=== PATIENT | male | born 1955 | race Caucasian/White ===

== ENCOUNTER 2023-07-11 16:59 | Inpatient (IN) ==
[2023-07-11] MEDS: LR 1,000 ML IV 1,000 ML IV SCH (20:48)
[2023-07-11] MEDS: BETAPACE AF PO SCH (20:50)
[2023-07-11] MEDS: PERCOCET TAB 5/325 MG PO PRN (20:50)
[2023-07-11] MEDS: CRESTOR TAB 10 MG PO SCH (20:51)
[2023-07-11 22:18] VITALS: BMI 24.3
--- NOTE | 2023-07-11 23:54 | DR.H&P ---
H&P History & Physical for Day of: H&P Date: 07/11/23 Chief Complaint Chief Complaint: Severe and acute in rest pain left leg. Allergies Allergies Allergy/AdvReac Type Severity Reaction Status Date / Time No Known Allergies Allergy Verified 07/11/23 18:37 History of Present Illness History of Present Illness: This is a 67 year old male with known peripheral vascular disease with CT angiogram showing a patent left superficial femoral artery stent with possible popliteal stenosis and only run off to the left leg being the peroneal . Patient was to be scheduled for arterial intervention in the next couple of weeks. He had a EGD today and had held his aspirin, Pletal and Plavix.Q hen he got home today he had acute increase in rest pain of the left leg with a cold left leg. Patient's past history significant for coronary artery disease status post CABG in the past and had recent nuclear stress test described as negative but with patient known lower ejection fraction. He has had stents placed in the left leg and has had bilateral carotid stents as well. Patient used to be a smoker and is diabetic Past Medical History Past Medical History: Anemia (has required iron infusions ), Cirrhosis (has had recent liver biopsy ), Coronary Artery Disease (s/p CABG in the past , recent nuclear streee test ), Diabetes, Dyslipidemia, GERD and Hypertension Additional Medical History: carotid artery stenosis s/p stenting of both , back pain Past Surgical History Surgical History: CABG/Valve Surgery (CABGx 3 ) and Carotid Endarterectomy (b/l carotid artery stenting ) Additional Surgical History: b/l inguinal hernia repair,b/ cataract surgery, Hx stenting left SFA Family History Family Medical History: [place] and Sudden Cardiac Social History Does patient currently use any type of tobacco product: No Have you used tobacco products in the last 12 months: No Type of Tobacco Use: None Does any household member use tobacco: No Alcohol Use: None Medications Home Medications: Home Medications Medication Instructions Recorded Confirmed Type amlodipine 5 mg-benazepril 10 mg 1 cap PO DAILY 07/11/23 07/11/23 History capsule empagliflozin 25 mg tablet 25 mg PO QAM 07/11/23 07/11/23 History (Jardiance) fluconazole 100 mg tablet 100 mg PO QDAY 07/11/23 07/11/23 History folic acid 1 mg tablet 1 mg PO QDAY 07/11/23 07/11/23 History metoprolol succinate 50 mg 50 mg PO QDAY 07/11/23 07/11/23 History tablet,extended release 24 hr omeprazole 40 mg capsule,delayed 40 mg PO DAILY 07/11/23 07/11/23 History release oxymetazoline 0.05 % nasal spray 2 spray intranasal TID PRN Allergy 07/11/23 07/11/23 History Symptoms rosuvastatin 20 mg tablet 20 mg PO QDAY 07/11/23 07/11/23 History solifenacin 10 mg tablet (Vesicare) 10 mg PO QDAY 07/11/23 07/11/23 History sotalol 80 mg tablet 80 mg PO BID 07/11/23 07/11/23 History tamsulosin 0.4 mg capsule 0.4 mg PO QDAY 07/11/23 07/11/23 History Labs Labs: Laboratory POC Glucose (mg/dL) 183 mg/dL (65-99) H 07/11/23 21:38 Review of Systems Constitutional: See HPI Eyes: No Symptoms Reported ENT: No Symptoms Reported Respiratory: No Symptoms Reported Cardiovascular: No Symptoms Reported Gastrointestinal: See HPI Genitourinary: No Symptoms Reported Musculoskeletal: Other (pain left leg at rest , absent Evie's sign , no significant swelling left leg ) Skin: No Symptoms Reported Neurological: No Symptoms Reported Physical Exam Vital Signs: Vital Signs Temperature 97.6 F Temperature 97.9 F Pulse Rate [Left Brachial] 51 Pulse Rate [Left Brachial] 52 Respiratory Rate 20 Respiratory Rate 20 Respiratory Rate 20 Respiratory Rate 19 Blood Pressure [Left Arm] 143/63 Blood Pressure [Left Arm] 179/75 O2 Sat by Pulse Oximetry 97 O2 Sat by Pulse Oximetry 97 Oriented: Normal, Person and Place Eyes: Normal and Other (not icteric ) Ear: Normal Nose: Normal Throat: Normal Respiratory: Clear Throughout Cardiovascular: Normal and Other (palpable femoral pulses b/l, absent PT and DP b/l, cool left foot) : Normal Auscultation: Bowel Sounds: Normal Palpation: Normal and Liver Enlarged (no ascities) Tenderness: Normal Skin: Other (left foot cool) Musculoskeletal: Normal Mood Description: Calm Affect: Normal Speech Pattern: Clear and Appropriate Assessment/Plan (1) Atherosclerosis of [place] arteries of extremities with rest pain, left leg: Status: Acute Plan: Admit, plan on table arteriogram of the left leg with possible arterial intervention tomorrow (2) Essential (primary) hypertension: Status: Acute Plan: home medications (3) Chronic ischemic heart disease, unspecified: Status: Acute Plan: home medications, review recent nuclear stress test (4) History of stroke: Status: Acute Plan: no acute cHANGES (5) Carotid stenosis, bilateral: Status: Acute Plan: no acute changes (6) Gastro-esophageal reflux disease without esophagitis: Status: Acute Plan: home medications (7) Hyperlipidemia: Status: Acute Plan: home medications Review H&P Reviewed: Yes Patient was examined?: Yes
[2023-07-12 06:39] LABS: BASOPHILS % (AUTO) 0.6 % (0.2-1.0); EOSINOPHILS # (AUTO) 0.1 x10^3/uL (0.0-0.2); EOSINOPHILS % (AUTO) 1.9 % (0.9-2.9); HEMATOCRIT 40.3 % (42.0-54.0); HEMOGLOBIN 13.5 g/dL (13.5-18.0); LYMPHOCYTES # (AUTO) 0.8 X10^3/uL (1.3-2.9); MEAN CORPUSCULAR HEMOGLOBIN 30.5 pg (27.0-34.0); MEAN CORPUSCULAR HGB CONC 33.5 g/dL (33.0-35.0); MEAN CORPUSCULAR VOLUME 91.2 fL (80.0-100.0); MEAN PLATELET VOLUME 8.7 fL (7.4-11.0); MONOCYTES # (AUTO) 0.3 x10^3/uL (0.3-0.8); NEUTROPHILS # (AUTO) 2.2 x10^3/uL (2.2-4.8); NEUTROPHILS % (AUTO) 64.5 % (42.0-75.0); PLATELET COUNT 56 X10^3/uL (150.0-450.0); RED BLOOD COUNT 4.42 X10^6/uL (4.7-6.0); RED CELL DISTRIBUTION WIDTH 15.1 % (11.6-16.5); WHITE BLOOD COUNT 3.4 X10^3/uL (3.6-10.0)
[2023-07-12 06:43] LABS: ALANINE AMINOTRANSFERASE 26 Units/L (12-78); ALBUMIN 3.2 g/dL (3.4-5.0); ALKALINE PHOSPHATASE 73 Units/L (46-116); ASPARTATE AMINO TRANSFERASE 16 Units/L (15-37); BLOOD UREA NITROGEN 17 mg/dL (7-18); CALCIUM 9.3 mg/dL (8.5-10.1); CARBON DIOXIDE 27.1 mmol/L (21-32); CHLORIDE 105 mmol/L (98-107); COR CA(FOR HYPOALB) 9.9 mg/dL (8.5-10.1); COR NA(FOR HYPERGLY) 143 mmol/L (136-145); CREATININE 0.83 mg/dL (0.70-1.30); GLUCOSE 170 mg/dL (65-99); POTASSIUM 3.9 mmol/L (3.5-5.1); SODIUM 141 mmol/L (136-145); TOTAL PROTEIN 7.1 g/dL (6.4-8.2); eGFR NON BLACK RACES > 60 (>60)
[2023-07-12] MEDS: NORVASC TAB 5 MG PO SCH (08:32)
[2023-07-12] MEDS: TOPROL XL PO SCH (09:49)
[2023-07-12] MEDS: FLOMAX PO SCH (10:34)
[2023-07-12] MEDS: PROTONIX TAB 40 MG PO SCH (10:35)
[2023-07-12] MEDS: FOLIC ACID TAB 1 MG PO SCH (10:35)
[2023-07-12] MEDS: NEURONTIN CAP 100 MG PO SCH (10:35)
[2023-07-12] MEDS: NS 1,000 ML IV 1,000 ML ONE ×2 (11:10→12:16)
[2023-07-12] MEDS: KETAMINE 50 MG/5 ML-NACL SYRNG ONE (11:28)
[2023-07-12] MEDS: FENTANYL VIAL INJ 100 mcg ONE (11:28)
[2023-07-12] MEDS: ANCEF VIAL 1 GRAM ONE (11:28)
[2023-07-12] MEDS: VERSED ONE (11:28)
[2023-07-12] MEDS: ZOFRAN INJ 4 MG VIAL ONE (11:28)
[2023-07-12] MEDS: DIPRIVAN VIAL 20 ML ONE (11:28)
[2023-07-12] MEDS: NS 100 ML IV 100 ML ONE (11:28)
[2023-07-12] MEDS ORDERED: XYLOCAINE 2 % (PLAIN) ONE (11:28)
[2023-07-12] MEDS: PEPCID 20 MG VIAL ONE (11:28)
[2023-07-12] MEDS: MARCAINE 0.5% ONE (11:47)
[2023-07-12] MEDS: VISIPAQUE 50 ML ONE (11:47)
[2023-07-12] MEDS: HEPARIN SODIUM IN D5W 75,000 UNITS/1,500 ML BAG ONE (11:47)
[2023-07-12] MEDS: VISIPAQUE 100 ML ONE (11:47)
[2023-07-12] MEDS: HEPARIN SODIUM INJ 5000 UNITS ONE (11:53)
[2023-07-12] MEDS: EPHEDRINE SULFATE INJ ONE (12:01)
[2023-07-12] MEDS: ACTIVASE CATHFLO ONE (12:09)
[2023-07-12] MEDS: NS 500 ML IV 500 ML IV ONE (12:16)
[2023-07-12] MEDS: ACTIVASE CATHFLO 12 MG in NS 250 ML IV 228 ML IV SCH (12:25)
--- NOTE | 2023-07-12 12:56 | OR.IMMED ---
IMMEDIATE POST-OP NOTE Immediate Post-Op Note Date of surgery/procedure: 07/12/23 Pre-Op Diagnosis: Acute ischemia left leg Post-Op Diagnosis: same , see findings Procedure: aortogram, arteriogram left leg, placement of EKOS catheter across all of the occluded stents of the left superficial femoral artery Description of Procedure: see dictation Surgeon/Air Chief Marshal: Gena Findings: This patient was known to have significant chronic arterial disease of the left leg and was scheduled for surgery in the next couple of weeks. However he underwent flexible EGD yesterday and they stopped all of his aspirin, anti-platlet drugs and anticoagulation and after EGD he had acute increase in pain of the left leg. Previous CT angiogram preiously done did not show any evidence of significant iliac artery disease however at the time of our aortogram he had a near total occlusion of the left common iliac artery with severe disease of the left external iliac artery and all of the stents of the entire left superficial femoral artery . There was reconstitution of the left popliteal artery with 3 vessel runoff. Most likely the poor inflow led to clotting when he stopped all of his anti-platelet and anti-coagulationdrugs prior to endoscopy . WIll treat with TPA thrombolysis overnight and then plan repeat trip to the operating room . Progress Notes: To ICU
[2023-07-12 13:36] LABS: BASOPHILS % (AUTO) 0.6 % (0.2-1.0); EOSINOPHILS % (AUTO) 1.4 % (0.9-2.9); HEMATOCRIT 40.1 % (42.0-54.0); HEMOGLOBIN 13.4 g/dL (13.5-18.0); LYMPHOCYTES # (AUTO) 0.6 X10^3/uL (1.3-2.9); MEAN CORPUSCULAR HEMOGLOBIN 30.6 pg (27.0-34.0); MEAN CORPUSCULAR HGB CONC 33.5 g/dL (33.0-35.0); MEAN CORPUSCULAR VOLUME 91.3 fL (80.0-100.0); MEAN PLATELET VOLUME 8.3 fL (7.4-11.0); MONOCYTES # (AUTO) 0.2 x10^3/uL (0.3-0.8); NEUTROPHILS # (AUTO) 2.3 x10^3/uL (2.2-4.8); PLATELET COUNT 52 X10^3/uL (150.0-450.0); RED BLOOD COUNT 4.39 X10^6/uL (4.7-6.0); RED CELL DISTRIBUTION WIDTH 14.7 % (11.6-16.5); WHITE BLOOD COUNT 3.2 X10^3/uL (3.6-10.0)
[2023-07-12 19:43] LABS: BASOPHILS % (AUTO) 0.6 % (0.2-1.0); EOSINOPHILS # (AUTO) 0.1 x10^3/uL (0.0-0.2); EOSINOPHILS % (AUTO) 1.2 % (0.9-2.9); HEMATOCRIT 41.4 % (42.0-54.0); HEMOGLOBIN 13.8 g/dL (13.5-18.0); LYMPHOCYTES # (AUTO) 0.6 X10^3/uL (1.3-2.9); LYMPHOCYTES % (AUTO) 14.9 % (21.0-51.0); MEAN CORPUSCULAR HEMOGLOBIN 30.4 pg (27.0-34.0); MEAN CORPUSCULAR HGB CONC 33.5 g/dL (33.0-35.0); MEAN CORPUSCULAR VOLUME 90.8 fL (80.0-100.0); MEAN PLATELET VOLUME 8.4 fL (7.4-11.0); MONOCYTES # (AUTO) 0.3 x10^3/uL (0.3-0.8); MONOCYTES % (AUTO) 8.4 % (0.0-13.0); NEUTROPHILS # (AUTO) 3.1 x10^3/uL (2.2-4.8); NEUTROPHILS % (AUTO) 74.9 % (42.0-75.0); PLATELET COUNT 59 X10^3/uL (150.0-450.0); RED BLOOD COUNT 4.56 X10^6/uL (4.7-6.0); RED CELL DISTRIBUTION WIDTH 14.7 % (11.6-16.5); WHITE BLOOD COUNT 4.1 X10^3/uL (3.6-10.0)
[2023-07-12] MEDS: LOVENOX INJ 80 MG SYR SC SCH (20:58)
[2023-07-12] MEDS: NovoLIN R (or HumuLIN R) SC PRN (20:59)
[2023-07-12] MEDS: FLEXERIL TAB 10 MG PO PRN (23:09)
[2023-07-13 01:30] LABS: BASOPHILS # (AUTO) 0.1 X10^3/uL (0.0-0.1); BASOPHILS % (AUTO) 1.6 % (0.2-1.0); EOSINOPHILS # (AUTO) 0.1 x10^3/uL (0.0-0.2); EOSINOPHILS % (AUTO) 1.9 % (0.9-2.9); HEMATOCRIT 39.3 % (42.0-54.0); HEMOGLOBIN 13.4 g/dL (13.5-18.0); LYMPHOCYTES # (AUTO) 0.7 X10^3/uL (1.3-2.9); LYMPHOCYTES % (AUTO) 13.6 % (21.0-51.0); MEAN CORPUSCULAR HEMOGLOBIN 30.7 pg (27.0-34.0); MEAN CORPUSCULAR VOLUME 90.2 fL (80.0-100.0); MEAN PLATELET VOLUME 8.3 fL (7.4-11.0); MONOCYTES # (AUTO) 0.4 x10^3/uL (0.3-0.8); MONOCYTES % (AUTO) 7.4 % (0.0-13.0); NEUTROPHILS # (AUTO) 3.7 x10^3/uL (2.2-4.8); NEUTROPHILS % (AUTO) 75.5 % (42.0-75.0); PLATELET COUNT 65 X10^3/uL (150.0-450.0); RED BLOOD COUNT 4.36 X10^6/uL (4.7-6.0); RED CELL DISTRIBUTION WIDTH 14.7 % (11.6-16.5); WHITE BLOOD COUNT 4.9 X10^3/uL (3.6-10.0)
--- NOTE | 2023-07-13 06:13 | RAD ---
EXAM:Portable chestHISTORY:Preop ischemic left lower extremityCOMPARISON:NoneFINDINGS:Patient is status post median sternotomy and CABG. Heart size is normal. Sosa are normal. Aorta is calcified. Lung obrien are clear. No definite pleural effusions identified. Bony thorax is unremarkable.IMPRESSION:Clear status post CABG chestTHIS IS AN ELECTRONICALLY VERIFIED FINAL REPORT07/13/2023 6:09 AM - Electronically signed by Quinton Keane MD
[2023-07-13 07:20] LABS: BASOPHILS % (AUTO) 0.6 % (0.2-1.0); EOSINOPHILS # (AUTO) 0.1 x10^3/uL (0.0-0.2); EOSINOPHILS % (AUTO) 1.3 % (0.9-2.9); HEMATOCRIT 39.6 % (42.0-54.0); HEMOGLOBIN 13.3 g/dL (13.5-18.0); LYMPHOCYTES # (AUTO) 0.7 X10^3/uL (1.3-2.9); LYMPHOCYTES % (AUTO) 11.9 % (21.0-51.0); MEAN CORPUSCULAR HEMOGLOBIN 30.3 pg (27.0-34.0); MEAN CORPUSCULAR HGB CONC 33.5 g/dL (33.0-35.0); MEAN CORPUSCULAR VOLUME 90.4 fL (80.0-100.0); MONOCYTES # (AUTO) 0.5 x10^3/uL (0.3-0.8); MONOCYTES % (AUTO) 9.2 % (0.0-13.0); NEUTROPHILS # (AUTO) 4.5 x10^3/uL (2.2-4.8); PLATELET COUNT 69 X10^3/uL (150.0-450.0); RED BLOOD COUNT 4.38 X10^6/uL (4.7-6.0); RED CELL DISTRIBUTION WIDTH 14.5 % (11.6-16.5); WHITE BLOOD COUNT 5.8 X10^3/uL (3.6-10.0)
[2023-07-13] MEDS: NS 500 ML IV 500 ML IV SCH ×2 (07:45)
[2023-07-13] MEDS: ATIVAN TAB 1 MG PO PRN (11:00)
--- NOTE | 2023-07-13 12:11 | NOTE.SOAP ---
Soap Note Note for Day of Date of Exam: 07/13/23 Subjective Data Subjective Data: POD # 1 after aortogram, arteriogram left leg with findings of near complete occlusion of the left common iliac artery , severe stenosis of the left external iliac artery and thrombosis of all the stents of the left superficial femoral artery. Has undergone EKOS directed thrombolysis of all left SFA stents last night . Doing well Left leg pain resolved Objective Data Temperature: 98 F Pulse Rate: 66 Respiratory Rate: 19 Blood Pressure: 146/64 O2 Sat by Pulse Oximetry: 95 Objective Data: Left foot warm, Mild bleeding from right groin catheter placement . Hgb=13.3, cr=0.83, febouppppa=995, PTT=39.8 Assessment Assessment: Thrombosis left SFA stents , treated with TPA EKOS directed thrombolysis. Plan Plan: To OR TOMORROW for f/u arteriogram left leg and stenting left common and left external iliac arteries.
--- NOTE | 2023-07-13 13:00 | DR.OPNOTE ---
OP NOTE Pre-Op Diagnosis: critical ischemia left leg, acute onset and worsening Post-Op Diagnosis: same , see findings Procedure Date Date Of Procedure: 07/12/23 Procedure: PROCEDURE: DIAGNOSTIC AORTOGRAM, DIAGNOSTIC ARTERIOGRAM LEFT LEG, PLACEMENT LEFT SUPERFICIAL FEMORAL ARTERY ekos DORECTED THROMBOLYTIC CATHETER. NARRATIVE : The patient was taken to the operative suite and placed in the supine position. The right groin and entire left leg were prepped and draped in sterile fashion. The patient was given intravenous sedation supervised by myself. Time out for the procedure obtained. Ultrasound used to identify the right femoral artery and the skin overlying it infiltrated with 0.5% Marcaine. Ultrasound then used to guide puncture of the right femoral artery and a 0.012 inch guide wire was placed. Incision made over the guide wire at the skin edge with a # 11 knife blade and a micro sheath placed over the guide wire into the right femoral artery The small guidewire exchanged for a 0.035 inch Advantage glide wire and the micro sheath exchanged for a 5 Fr vascular sheath. Patient given 5000 units of intravenous heparin. Omni catheter was placed over the guide wire into the aorta and diagnostic aortogram carried out with the power injector showing small aorta with near total occlusion of the takeoff of the left common iliac artery and severe stenosis of the entire left external iliac artery. Omni catheter was used to steer the guide wire down the left common iliac artery to the distal left external iliac artery . Omni catheter was exchanged for a Canby catheter and sequential arteriograms carried out of the left lower extremity showing all stents lining the entire left superficial femoral artery to be occluded with probable clot as the wire advanced easily. In addition the patient had CTA 2 week previously showing these stents to be patetn The 5 Fr sheath in the right groin then exchanged for a 7 Fr Catapult sheath which parked on the left external iliac artery . Canby catheter and 0.035 inch guide wire were used to traverse the arteries and clot of the left leg ultimately ending in the left peroneal rtery . This was selective catheterization. Canby catheter exchanged for the sheath for the EKOS catheter and the wire reoved and exchanged for the core wire of the EKOS system. Patient bolused with 3 mg TPA through the catheter and TPA infusion started at 1 mg/ hour with plan for 24 hour infusion. Coolant through the EKOS sheath stared at 30 cc/hour and the oscillation of the catheter startred . The catheter in the right groin secured to the skin with interrupted silk suture ligature and dressing applied . The patient taken to CCU in good condition. Plan overnight thrombolysis of the left leg and will bring back to OR on 07/14/2023 for repeat arteteriogram, possible angioplasty of the left SFA stents. Will also need stenting of the left common and external iliac arteries . Patient will also be therapuetic Lovenox dose. Type of Anesthesia: Local (0.5% Marcaine ) Anesthesia Comment: plus MAC Findings: near total occlusion takeoff of the left common iliac artery, severe stenosis left external iliac artey, thrombosis of all stents lining the left superficial femoral artetry , with reconstitution of the left popliteal artery and 3 vessel runoff. Type of Fluids Used:: Lactated Ringers Total Amount of Fluid Infused:: 500cc Urine output: 225cc EBL: 50 cc Complications:: none Needle/Sponge Count:: correct Disposition/Condition: Pt. tolerated procedure without difficulty. Patient taken to CCU in stable condition.
[2023-07-13 13:48] LABS: BASOPHILS % (AUTO) 0.7 % (0.2-1.0); EOSINOPHILS # (AUTO) 0.1 x10^3/uL (0.0-0.2); HEMATOCRIT 33.8 % (42.0-54.0); HEMOGLOBIN 11.4 g/dL (13.5-18.0); LYMPHOCYTES # (AUTO) 0.6 X10^3/uL (1.3-2.9); LYMPHOCYTES % (AUTO) 14.3 % (21.0-51.0); MEAN CORPUSCULAR HEMOGLOBIN 30.4 pg (27.0-34.0); MEAN CORPUSCULAR HGB CONC 33.7 g/dL (33.0-35.0); MEAN CORPUSCULAR VOLUME 90.2 fL (80.0-100.0); MONOCYTES # (AUTO) 0.4 x10^3/uL (0.3-0.8); MONOCYTES % (AUTO) 9.3 % (0.0-13.0); NEUTROPHILS # (AUTO) 3.1 x10^3/uL (2.2-4.8); NEUTROPHILS % (AUTO) 73.7 % (42.0-75.0); PLATELET COUNT 62 X10^3/uL (150.0-450.0); RED BLOOD COUNT 3.75 X10^6/uL (4.7-6.0); RED CELL DISTRIBUTION WIDTH 14.9 % (11.6-16.5); WHITE BLOOD COUNT 4.2 X10^3/uL (3.6-10.0)
[2023-07-13 19:39] LABS: BASOPHILS % (AUTO) 0.6 % (0.2-1.0); EOSINOPHILS % (AUTO) 0.9 % (0.9-2.9); HEMOGLOBIN 10.7 g/dL (13.5-18.0); LYMPHOCYTES # (AUTO) 0.8 X10^3/uL (1.3-2.9); LYMPHOCYTES % (AUTO) 14.2 % (21.0-51.0); MEAN CORPUSCULAR HEMOGLOBIN 30.8 pg (27.0-34.0); MEAN CORPUSCULAR HGB CONC 34.4 g/dL (33.0-35.0); MEAN CORPUSCULAR VOLUME 89.6 fL (80.0-100.0); MEAN PLATELET VOLUME 7.9 fL (7.4-11.0); MONOCYTES # (AUTO) 0.4 x10^3/uL (0.3-0.8); NEUTROPHILS # (AUTO) 4.1 x10^3/uL (2.2-4.8); NEUTROPHILS % (AUTO) 76.3 % (42.0-75.0); PLATELET COUNT 73 X10^3/uL (150.0-450.0); RED BLOOD COUNT 3.46 X10^6/uL (4.7-6.0); RED CELL DISTRIBUTION WIDTH 14.6 % (11.6-16.5); WHITE BLOOD COUNT 5.3 X10^3/uL (3.6-10.0)
[2023-07-13] MEDS: ACTIVASE CATHFLO 12 MG in NS 250 ML IV 228 ML INTRACATH ONE ×2 (19:40→19:41)
[2023-07-13] MEDS: ACTIVASE CATHFLO 12 MG in NS 250 ML IV 228 ML IV ONE (19:41)
[2023-07-14 01:33] LABS: BASOPHILS % (AUTO) 0.4 % (0.2-1.0); HEMOGLOBIN 9.7 g/dL (13.5-18.0); LYMPHOCYTES # (AUTO) 0.8 X10^3/uL (1.3-2.9); LYMPHOCYTES % (AUTO) 16.6 % (21.0-51.0); MEAN CORPUSCULAR HGB CONC 34.6 g/dL (33.0-35.0); MEAN CORPUSCULAR VOLUME 89.5 fL (80.0-100.0); MEAN PLATELET VOLUME 7.9 fL (7.4-11.0); MONOCYTES # (AUTO) 0.6 x10^3/uL (0.3-0.8); MONOCYTES % (AUTO) 12.3 % (0.0-13.0); NEUTROPHILS # (AUTO) 3.4 x10^3/uL (2.2-4.8); NEUTROPHILS % (AUTO) 69.7 % (42.0-75.0); PLATELET COUNT 59 X10^3/uL (150.0-450.0); RED BLOOD COUNT 3.13 X10^6/uL (4.7-6.0); RED CELL DISTRIBUTION WIDTH 14.2 % (11.6-16.5); WHITE BLOOD COUNT 4.8 X10^3/uL (3.6-10.0)
[2023-07-14 07:56] LABS: BASOPHILS % (AUTO) 0.4 % (0.2-1.0); EOSINOPHILS # (AUTO) 0.1 x10^3/uL (0.0-0.2); EOSINOPHILS % (AUTO) 1.4 % (0.9-2.9); HEMATOCRIT 28.3 % (42.0-54.0); HEMOGLOBIN 9.7 g/dL (13.5-18.0); LYMPHOCYTES # (AUTO) 0.7 X10^3/uL (1.3-2.9); LYMPHOCYTES % (AUTO) 16.7 % (21.0-51.0); MEAN CORPUSCULAR HGB CONC 34.2 g/dL (33.0-35.0); MEAN CORPUSCULAR VOLUME 90.6 fL (80.0-100.0); MONOCYTES # (AUTO) 0.4 x10^3/uL (0.3-0.8); MONOCYTES % (AUTO) 9.6 % (0.0-13.0); NEUTROPHILS # (AUTO) 3.1 x10^3/uL (2.2-4.8); NEUTROPHILS % (AUTO) 71.9 % (42.0-75.0); PLATELET COUNT 63 X10^3/uL (150.0-450.0); RED BLOOD COUNT 3.13 X10^6/uL (4.7-6.0); RED CELL DISTRIBUTION WIDTH 14.6 % (11.6-16.5); WHITE BLOOD COUNT 4.3 X10^3/uL (3.6-10.0)
[2023-07-14] MEDS: NS 1,000 ML IV 1,000 ML ONE (08:31)
[2023-07-14] MEDS: FENTANYL VIAL INJ 100 mcg ONE (09:21)
[2023-07-14] MEDS: DIPRIVAN VIAL 20 ML ONE ×2 (09:21→10:06)
[2023-07-14] MEDS: ANCEF VIAL 1 GRAM ONE (09:21)
[2023-07-14] MEDS: VERSED ONE (09:21)
[2023-07-14] MEDS: NS 100 ML IV 100 ML ONE (09:21)
[2023-07-14] MEDS: KETAMINE HCL ONE (09:21)
[2023-07-14] MEDS: HEPARIN SODIUM IN D5W 75,000 UNITS/1,500 ML BAG ONE (09:39)
[2023-07-14] MEDS: HEPARIN SODIUM INJ 5000 UNITS ONE (09:39)
[2023-07-14] MEDS: VISIPAQUE 50 ML ONE ×2 (09:39→11:15)
[2023-07-14] MEDS: MARCAINE 0.5% ONE (09:39)
[2023-07-14] MEDS: NEO-SYNEPHRINE INJ ONE (09:46)
--- NOTE | 2023-07-14 10:46 | OR.IMMED ---
IMMEDIATE POST-OP NOTE Immediate Post-Op Note Date of surgery/procedure: 07/14/23 Pre-Op Diagnosis: Severe common and external iliac artery stenosis on the left and thrombosis of entire left superficial femoral artery including stents ,treated with TPA overnight infusion Post-Op Diagnosis: same, thrombosis resolved, left external iliac artery stented, both common iliac arteries stented with kissing stents Procedure: Aortogram, arteriogram left leg, drug coated balloon angioplasty of all stents in the left superficial femoral artery , stenting left extyernal,iliac artery, stenting both common iliac arteries Description of Procedure: dictated Surgeon/Fitter And Turner: Gena Findings: thrombosis resolved of the left superficial femoral artery stents with mild residual clot ,severe stenosis left external iliac artery, near complete occlusion take off of the left common iliac artery ,severe stenosis right common iliac artery Estimated Blood Loss: 150 cc Complications: none Progress Notes: to CCU , check CBC, may discharge ho me later today
[2023-07-14] MEDS: ATIVAN INJ 2 MG VIAL IVP ONE (11:03)
[2023-07-14] MEDS: ATIVAN INJ 2 MG VIAL ONE (11:16)
[2023-07-14 12:16] LABS: BASOPHILS % (AUTO) 0.5 % (0.2-1.0); EOSINOPHILS # (AUTO) 0.1 x10^3/uL (0.0-0.2); EOSINOPHILS % (AUTO) 1.5 % (0.9-2.9); HEMATOCRIT 24.8 % (42.0-54.0); HEMOGLOBIN 8.5 g/dL (13.5-18.0); LYMPHOCYTES # (AUTO) 0.6 X10^3/uL (1.3-2.9); LYMPHOCYTES % (AUTO) 16.3 % (21.0-51.0); MEAN CORPUSCULAR HGB CONC 34.3 g/dL (33.0-35.0); MEAN CORPUSCULAR VOLUME 90.4 fL (80.0-100.0); MEAN PLATELET VOLUME 7.6 fL (7.4-11.0); MONOCYTES # (AUTO) 0.4 x10^3/uL (0.3-0.8); MONOCYTES % (AUTO) 10.9 % (0.0-13.0); NEUTROPHILS # (AUTO) 2.6 x10^3/uL (2.2-4.8); NEUTROPHILS % (AUTO) 70.8 % (42.0-75.0); PLATELET COUNT 50 X10^3/uL (150.0-450.0); RED BLOOD COUNT 2.75 X10^6/uL (4.7-6.0); WHITE BLOOD COUNT 3.7 X10^3/uL (3.6-10.0)
[2023-07-14 13:58] LABS: BASOPHILS % (AUTO) 0.4 % (0.2-1.0); EOSINOPHILS # (AUTO) 0.1 x10^3/uL (0.0-0.2); EOSINOPHILS % (AUTO) 1.3 % (0.9-2.9); HEMATOCRIT 28.4 % (42.0-54.0); HEMOGLOBIN 9.6 g/dL (13.5-18.0); LYMPHOCYTES # (AUTO) 0.7 X10^3/uL (1.3-2.9); MEAN CORPUSCULAR HEMOGLOBIN 30.5 pg (27.0-34.0); MEAN CORPUSCULAR HGB CONC 33.8 g/dL (33.0-35.0); MEAN CORPUSCULAR VOLUME 90.3 fL (80.0-100.0); MEAN PLATELET VOLUME 8.5 fL (7.4-11.0); MONOCYTES # (AUTO) 0.4 x10^3/uL (0.3-0.8); MONOCYTES % (AUTO) 9.7 % (0.0-13.0); NEUTROPHILS # (AUTO) 2.9 x10^3/uL (2.2-4.8); NEUTROPHILS % (AUTO) 71.6 % (42.0-75.0); PLATELET COUNT 57 X10^3/uL (150.0-450.0); RED BLOOD COUNT 3.15 X10^6/uL (4.7-6.0); RED CELL DISTRIBUTION WIDTH 14.3 % (11.6-16.5)
[2023-07-14 19:36] LABS: BASOPHILS % (AUTO) 0.5 % (0.2-1.0); EOSINOPHILS # (AUTO) 0.1 x10^3/uL (0.0-0.2); HEMATOCRIT 25.6 % (42.0-54.0); HEMOGLOBIN 8.8 g/dL (13.5-18.0); LYMPHOCYTES # (AUTO) 0.6 X10^3/uL (1.3-2.9); LYMPHOCYTES % (AUTO) 15.7 % (21.0-51.0); MEAN CORPUSCULAR HEMOGLOBIN 31.2 pg (27.0-34.0); MEAN CORPUSCULAR HGB CONC 34.3 g/dL (33.0-35.0); MEAN CORPUSCULAR VOLUME 90.9 fL (80.0-100.0); MONOCYTES # (AUTO) 0.4 x10^3/uL (0.3-0.8); MONOCYTES % (AUTO) 10.6 % (0.0-13.0); NEUTROPHILS # (AUTO) 2.7 x10^3/uL (2.2-4.8); NEUTROPHILS % (AUTO) 71.2 % (42.0-75.0); PLATELET COUNT 53 X10^3/uL (150.0-450.0); RED BLOOD COUNT 2.82 X10^6/uL (4.7-6.0); RED CELL DISTRIBUTION WIDTH 14.4 % (11.6-16.5); WHITE BLOOD COUNT 3.8 X10^3/uL (3.6-10.0)
[2023-07-15 01:34] LABS: BASOPHILS % (AUTO) 0.6 % (0.2-1.0); EOSINOPHILS # (AUTO) 0.1 x10^3/uL (0.0-0.2); EOSINOPHILS % (AUTO) 2.4 % (0.9-2.9); HEMATOCRIT 22.7 % (42.0-54.0); HEMOGLOBIN 7.8 g/dL (13.5-18.0); LYMPHOCYTES # (AUTO) 0.5 X10^3/uL (1.3-2.9); LYMPHOCYTES % (AUTO) 16.8 % (21.0-51.0); MEAN CORPUSCULAR HEMOGLOBIN 30.9 pg (27.0-34.0); MEAN CORPUSCULAR HGB CONC 34.6 g/dL (33.0-35.0); MEAN CORPUSCULAR VOLUME 89.6 fL (80.0-100.0); MEAN PLATELET VOLUME 7.8 fL (7.4-11.0); MONOCYTES # (AUTO) 0.4 x10^3/uL (0.3-0.8); MONOCYTES % (AUTO) 11.4 % (0.0-13.0); NEUTROPHILS # (AUTO) 2.1 x10^3/uL (2.2-4.8); NEUTROPHILS % (AUTO) 68.8 % (42.0-75.0); PLATELET COUNT 50 X10^3/uL (150.0-450.0); RED BLOOD COUNT 2.53 X10^6/uL (4.7-6.0); RED CELL DISTRIBUTION WIDTH 14.3 % (11.6-16.5); WHITE BLOOD COUNT 3.1 X10^3/uL (3.6-10.0)
[2023-07-15 04:03] VITALS: TEMP 98.2
[2023-07-15 06:05] VITALS: O2SAT 100
[2023-07-15 08:04] VITALS: PULSE 67
[2023-07-15 08:40] LABS: BASOPHILS % (AUTO) 0.5 % (0.2-1.0); EOSINOPHILS # (AUTO) 0.1 x10^3/uL (0.0-0.2); EOSINOPHILS % (AUTO) 2.3 % (0.9-2.9); HEMATOCRIT 24.6 % (42.0-54.0); HEMOGLOBIN 8.5 g/dL (13.5-18.0); LYMPHOCYTES # (AUTO) 0.5 X10^3/uL (1.3-2.9); LYMPHOCYTES % (AUTO) 18.1 % (21.0-51.0); MEAN CORPUSCULAR HEMOGLOBIN 31.2 pg (27.0-34.0); MEAN CORPUSCULAR HGB CONC 34.5 g/dL (33.0-35.0); MEAN CORPUSCULAR VOLUME 90.3 fL (80.0-100.0); MONOCYTES # (AUTO) 0.3 x10^3/uL (0.3-0.8); MONOCYTES % (AUTO) 10.5 % (0.0-13.0); NEUTROPHILS # (AUTO) 1.9 x10^3/uL (2.2-4.8); NEUTROPHILS % (AUTO) 68.6 % (42.0-75.0); PLATELET COUNT 50 X10^3/uL (150.0-450.0); RED BLOOD COUNT 2.73 X10^6/uL (4.7-6.0); RED CELL DISTRIBUTION WIDTH 14.4 % (11.6-16.5); WHITE BLOOD COUNT 2.8 X10^3/uL (3.6-10.0)
[2023-07-15 10:08] VITALS: BP 125/60; RESP 13
--- NOTE | 2023-07-15 11:25 | W.DIS.FURT ---
Summary of Discharge Discharge Summary of Date Date of Exam: 07/15/23 Admission Date Date of Admission: 07/11/23 Admission Diagnosis Hospital Course: This is a 67 year old male who has had left arterial LE intervention with multiple stents placed in the left superficial femorla artery who had been having some problems and was going to have repeat investigation in the operating room in a couple of weeks. However he had an upper endoscopy planned and all of his aspirin and other anti-coagulation medications were discontinued in anticipation of a biopsy of the time of the EGD and later that afternoon he complained of acute pain of the left leg. On presentation he had no pulses in the left leg. Repeat CT angiogram was not obtained. 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 He underwent Angiojet thrombectomy and placement of a thrombolytic catheter in the left leg which was infused for 24 hours and then observed another 24 and taken back to the operating Suite on July the where he underwent repeat arteriogram showing resolution of the clot in the left superficial femoral artery and stents with 3 vessel runoff. He had balloon angioplasty of the superficial femoral artery inside the stents and he also required stenting of both common arteries, the left side was nearly completely occcluded but because of the location required kissing stents to prevent collapse/compression of the right iliac artery . He has done well with a warm left foot with excellent doppler signals in the left ankle. He will be discharged home on his usual medications including his blood thinner and antiplatelet medications. He will follow with me in 1 week. On discharge his creatinine is 0.83. He lost some blood throught the right groin sheath will on TPA and his hemoglobin has risen to 8.5 grams . Suggest OTC iron supplement . Vital Signs: Vital Signs (72 hours) 07/13/23 12:01 07/12/23 13:00 07/12/23 11:40 Temperature 98 F Pulse Rate 66 57 L Pulse Rate [Left Brachial] Respiratory Rate 19 18 Blood Pressure 146/64 Blood Pressure [Left Arm] O2 Sat by Pulse Oximetry 95 95 Oxygen Delivery Method Oxygen Flow Rate FIO2% 07/12/23 12:45 07/12/23 16:04 07/12/23 12:45 Temperature 97.6 F Pulse Rate Pulse Rate [Left Brachial] 55 L Respiratory Rate 18 12 Blood Pressure Blood Pressure [Left Arm] 178/79 O2 Sat by Pulse Oximetry 96 Oxygen Delivery Method Room Air Room Air Oxygen Flow Rate FIO2% 07/12/23 13:00 07/12/23 13:15 07/12/23 13:30 Temperature 97.6 F 97.6 F 97.7 F Pulse Rate Pulse Rate [Left Brachial] 54 L 51 L 51 L Respiratory Rate 24 15 15 Blood Pressure Blood Pressure [Left Arm] 162/71 149/60 144/66 O2 Sat by Pulse Oximetry 96 94 L 95 Oxygen Delivery Method Room Air Room Air Room Air Oxygen Flow Rate FIO2% 07/12/23 13:45 07/12/23 14:45 07/12/23 15:45 Temperature 97.7 F 97.7 F 98.6 F Pulse Rate Pulse Rate [Left Brachial] 50 L 49 L 66 Respiratory Rate 12 14 15 Blood Pressure Blood Pressure [Left Arm] 146/68 155/62 166/77 O2 Sat by Pulse Oximetry 94 L 95 96 Oxygen Delivery Method Room Air Room Air Room Air Oxygen Flow Rate FIO2% 07/12/23 16:45 07/12/23 17:45 07/12/23 17:04 Temperature 98.0 F 97.8 F Pulse Rate Pulse Rate [Left Brachial] 65 68 Respiratory Rate 12 21 18 Blood Pressure Blood Pressure [Left Arm] 171/71 160/70 O2 Sat by Pulse Oximetry 92 L 93 L Oxygen Delivery Method Room Air Room Air Oxygen Flow Rate FIO2% 07/12/23 19:00 07/12/23 19:32 07/12/23 20:00 Temperature 98.1 F Pulse Rate 58 L Pulse Rate [Left Brachial] 60 59 L Respiratory Rate 24 24 Blood Pressure Blood Pressure [Left Arm] 171/80 159/68 O2 Sat by Pulse Oximetry 93 L 99 95 Oxygen Delivery Method Room Air Room Air Oxygen Flow Rate FIO2% 07/12/23 19:00 07/12/23 21:50 07/12/23 21:05 Temperature Pulse Rate Pulse Rate [Left Brachial] 58 L Respiratory Rate 18 16 Blood Pressure Blood Pressure [Left Arm] 176/77 O2 Sat by Pulse Oximetry 96 Oxygen Delivery Method Room Air Room Air Oxygen Flow Rate FIO2% 07/12/23 22:00 07/12/23 22:50 07/12/23 23:56 Temperature 98.7 F Pulse Rate Pulse Rate [Left Brachial] 61 60 Respiratory Rate 15 18 15 Blood Pressure Blood Pressure [Left Arm] 177/77 177/78 O2 Sat by Pulse Oximetry 96 96 Oxygen Delivery Method Room Air Room Air Oxygen Flow Rate FIO2% 07/13/23 01:02 07/13/23 01:54 07/13/23 06:10 Temperature Pulse Rate Pulse Rate [Left Brachial] 60 Respiratory Rate 16 18 18 Blood Pressure Blood Pressure [Left Arm] 165/72 O2 Sat by Pulse Oximetry 96 Oxygen Delivery Method Room Air Oxygen Flow Rate FIO2% 07/13/23 02:00 07/13/23 03:00 07/13/23 02:54 Temperature Pulse Rate Pulse Rate [Left Brachial] 62 62 Respiratory Rate 15 16 16 Blood Pressure Blood Pressure [Left Arm] 180/85 168/84 O2 Sat by Pulse Oximetry 96 97 Oxygen Delivery Method Room Air Room Air Oxygen Flow Rate FIO2% 07/13/23 04:00 07/13/23 05:00 07/13/23 06:07 Temperature 97.7 F Pulse Rate Pulse Rate [Left Brachial] 62 60 68 Respiratory Rate 14 19 19 Blood Pressure Blood Pressure [Left Arm] 149/67 155/69 160/72 O2 Sat by Pulse Oximetry 97 97 98 Oxygen Delivery Method Room Air Room Air Room Air Oxygen Flow Rate FIO2% 07/13/23 07:00 07/12/23 23:30 07/12/23 23:45 Temperature Pulse Rate 61 62 Pulse Rate [Left Brachial] Respiratory Rate 21 18 Blood Pressure Blood Pressure [Left Arm] O2 Sat by Pulse Oximetry 96 97 Oxygen Delivery Method Room Air Oxygen Flow Rate FIO2% 07/13/23 00:00 07/13/23 00:00 07/13/23 00:02 Temperature Pulse Rate 62 61 Pulse Rate [Left Brachial] Respiratory Rate 16 16 Blood Pressure 203/82 Blood Pressure [Left Arm] O2 Sat by Pulse Oximetry 96 97 Oxygen Delivery Method Oxygen Flow Rate FIO2% 07/13/23 00:02 07/13/23 00:15 07/13/23 00:30 Temperature Pulse Rate 60 Pulse Rate [Left Brachial] Respiratory Rate 20 Blood Pressure 185/78 167/72 Blood Pressure [Left Arm] O2 Sat by Pulse Oximetry 96 Oxygen Delivery Method Oxygen Flow Rate FIO2% 07/13/23 00:30 07/13/23 00:45 07/13/23 01:00 Temperature Pulse Rate 59 L 60 Pulse Rate [Left Brachial] Respiratory Rate 15 21 Blood Pressure 165/72 Blood Pressure [Left Arm] O2 Sat by Pulse Oximetry 97 93 L Oxygen Delivery Method Oxygen Flow Rate FIO2% 07/13/23 01:00 07/13/23 01:00 07/13/23 01:15 Temperature Pulse Rate 60 60 Pulse Rate [Left Brachial] Respiratory Rate 19 14 Blood Pressure 165/72 Blood Pressure [Left Arm] O2 Sat by Pulse Oximetry 96 98 Oxygen Delivery Method Oxygen Flow Rate FIO2% 07/13/23 01:30 07/13/23 01:30 07/13/23 01:32 Temperature Pulse Rate 63 Pulse Rate [Left Brachial] Respiratory Rate 20 Blood Pressure 203/84 185/80 Blood Pressure [Left Arm] O2 Sat by Pulse Oximetry 95 Oxygen Delivery Method Oxygen Flow Rate FIO2% 07/13/23 01:32 07/13/23 01:45 07/13/23 02:00 Temperature Pulse Rate 63 61 63 Pulse Rate [Left Brachial] Respiratory Rate 20 13 15 Blood Pressure Blood Pressure [Left Arm] O2 Sat by Pulse Oximetry 97 97 96 Oxygen Delivery Method Oxygen Flow Rate FIO2% 07/13/23 02:01 07/13/23 02:01 07/13/23 02:15 Temperature Pulse Rate 62 60 Pulse Rate [Left Brachial] Respiratory Rate 29 H 14 Blood Pressure 186/78 Blood Pressure [Left Arm] O2 Sat by Pulse Oximetry 96 97 Oxygen Delivery Method Oxygen Flow Rate FIO2% 07/13/23 02:30 07/13/23 02:45 07/13/23 03:00 Temperature Pulse Rate 60 65 Pulse Rate [Left Brachial] Respiratory Rate 18 19 Blood Pressure 177/115 Blood Pressure [Left Arm] O2 Sat by Pulse Oximetry 97 97 Oxygen Delivery Method Oxygen Flow Rate FIO2% 07/13/23 03:00 07/13/23 03:04 07/13/23 03:04 Temperature Pulse Rate 64 62 Pulse Rate [Left Brachial] Respiratory Rate 34 H 14 Blood Pressure 168/84 Blood Pressure [Left Arm] O2 Sat by Pulse Oximetry 96 Oxygen Delivery Method Oxygen Flow Rate FIO2% 07/13/23 03:15 07/13/23 03:30 07/13/23 03:45 Temperature Pulse Rate 61 61 61 Pulse Rate [Left Brachial] Respiratory Rate 17 20 15 Blood Pressure Blood Pressure [Left Arm] O2 Sat by Pulse Oximetry 97 95 96 Oxygen Delivery Method Oxygen Flow Rate FIO2% 07/13/23 04:00 07/13/23 04:00 07/13/23 04:15 Temperature Pulse Rate 60 62 Pulse Rate [Left Brachial] Respiratory Rate 21 19 Blood Pressure 149/67 Blood Pressure [Left Arm] O2 Sat by Pulse Oximetry 94 L 93 L Oxygen Delivery Method Oxygen Flow Rate FIO2% 07/13/23 04:30 07/13/23 04:45 07/13/23 05:00 Temperature Pulse Rate 63 61 60 Pulse Rate [Left Brachial] Respiratory Rate 21 18 19 Blood Pressure Blood Pressure [Left Arm] O2 Sat by Pulse Oximetry 96 96 94 L Oxygen Delivery Method Oxygen Flow Rate FIO2% 07/13/23 05:00 07/13/23 05:15 07/13/23 05:30 Temperature Pulse Rate 61 64 Pulse Rate [Left Brachial] Respiratory Rate 21 26 H Blood Pressure 155/69 Blood Pressure [Left Arm] O2 Sat by Pulse Oximetry 94 L 97 Oxygen Delivery Method Oxygen Flow Rate FIO2% 07/13/23 05:45 07/13/23 06:00 07/13/23 06:00 Temperature Pulse Rate 62 64 Pulse Rate [Left Brachial] Respiratory Rate 21 18 Blood Pressure 160/72 Blood Pressure [Left Arm] O2 Sat by Pulse Oximetry 95 96 Oxygen Delivery Method Oxygen Flow Rate FIO2% 07/13/23 06:15 07/13/23 06:30 07/13/23 06:45 Temperature Pulse Rate 65 64 64 Pulse Rate [Left Brachial] Respiratory Rate 19 18 19 Blood Pressure Blood Pressure [Left Arm] O2 Sat by Pulse Oximetry 96 96 96 Oxygen Delivery Method Oxygen Flow Rate FIO2% 07/13/23 07:00 07/13/23 07:00 07/13/23 07:15 Temperature Pulse Rate 62 69 Pulse Rate [Left Brachial] Respiratory Rate 20 28 H Blood Pressure 136/64 Blood Pressure [Left Arm] O2 Sat by Pulse Oximetry 96 96 Oxygen Delivery Method Oxygen Flow Rate FIO2% 07/13/23 07:41 07/13/23 07:10 07/13/23 07:30 Temperature 98 F Pulse Rate 69 Pulse Rate [Left Brachial] Respiratory Rate 16 38 H Blood Pressure Blood Pressure [Left Arm] O2 Sat by Pulse Oximetry 97 Oxygen Delivery Method Oxygen Flow Rate FIO2% 07/13/23 07:45 07/13/23 08:00 07/13/23 08:00 Temperature Pulse Rate 72 63 Pulse Rate [Left Brachial] Respiratory Rate 29 H 19 Blood Pressure 146/64 Blood Pressure [Left Arm] O2 Sat by Pulse Oximetry 95 95 Oxygen Delivery Method Oxygen Flow Rate FIO2% 07/13/23 08:15 07/13/23 08:30 07/13/23 08:45 Temperature Pulse Rate 61 66 66 Pulse Rate [Left Brachial] Respiratory Rate 20 33 H 19 Blood Pressure Blood Pressure [Left Arm] O2 Sat by Pulse Oximetry 94 L 95 95 Oxygen Delivery Method Oxygen Flow Rate FIO2% 07/13/23 09:00 07/13/23 09:15 07/13/23 09:30 Temperature Pulse Rate 63 66 64 Pulse Rate [Left Brachial] Respiratory Rate 19 25 H 26 H Blood Pressure Blood Pressure [Left Arm] O2 Sat by Pulse Oximetry 95 97 98 Oxygen Delivery Method Oxygen Flow Rate FIO2% 07/13/23 09:50 07/13/23 09:45 07/13/23 10:00 Temperature Pulse Rate 62 63 Pulse Rate [Left Brachial] Respiratory Rate 18 20 14 Blood Pressure Blood Pressure [Left Arm] O2 Sat by Pulse Oximetry 99 99 Oxygen Delivery Method Oxygen Flow Rate FIO2% 07/13/23 10:15 07/13/23 10:20 07/13/23 10:20 Temperature Pulse Rate 63 63 Pulse Rate [Left Brachial] Respiratory Rate 17 17 Blood Pressure 161/70 Blood Pressure [Left Arm] O2 Sat by Pulse Oximetry 99 99 Oxygen Delivery Method Oxygen Flow Rate FIO2% 07/13/23 10:50 07/13/23 09:00 07/13/23 10:30 Temperature Pulse Rate 63 Pulse Rate [Left Brachial] Respiratory Rate 16 19 Blood Pressure Blood Pressure [Left Arm] O2 Sat by Pulse Oximetry 99 Oxygen Delivery Method Room Air Oxygen Flow Rate FIO2% 07/13/23 10:45 07/13/23 11:00 07/13/23 11:00 Temperature Pulse Rate 64 64 Pulse Rate [Left Brachial] Respiratory Rate 20 17 Blood Pressure 158/71 Blood Pressure [Left Arm] O2 Sat by Pulse Oximetry 98 98 Oxygen Delivery Method Oxygen Flow Rate FIO2% 07/13/23 11:15 07/13/23 11:30 07/13/23 11:45 Temperature Pulse Rate 65 62 62 Pulse Rate [Left Brachial] Respiratory Rate 24 20 21 Blood Pressure Blood Pressure [Left Arm] O2 Sat by Pulse Oximetry 99 97 98 Oxygen Delivery Method Oxygen Flow Rate FIO2% 07/13/23 12:00 07/13/23 12:00 07/13/23 12:15 Temperature Pulse Rate 65 62 Pulse Rate [Left Brachial] Respiratory Rate 20 21 Blood Pressure 138/62 Blood Pressure [Left Arm] O2 Sat by Pulse Oximetry 99 99 Oxygen Delivery Method Oxygen Flow Rate FIO2% 07/13/23 12:30 07/13/23 12:45 07/13/23 13:00 Temperature Pulse Rate 63 65 62 Pulse Rate [Left Brachial] Respiratory Rate 17 26 H 21 Blood Pressure Blood Pressure [Left Arm] O2 Sat by Pulse Oximetry 99 99 100 Oxygen Delivery Method Oxygen Flow Rate FIO2% 07/13/23 13:00 07/13/23 13:15 07/13/23 13:30 Temperature Pulse Rate 63 63 Pulse Rate [Left Brachial] Respiratory Rate 21 21 Blood Pressure 111/54 Blood Pressure [Left Arm] O2 Sat by Pulse Oximetry 100 99 Oxygen Delivery Method Oxygen Flow Rate FIO2% 07/13/23 13:45 07/13/23 14:00 07/13/23 14:01 Temperature Pulse Rate 63 64 64 Pulse Rate [Left Brachial] Respiratory Rate 22 23 17 Blood Pressure Blood Pressure [Left Arm] O2 Sat by Pulse Oximetry 99 98 98 Oxygen Delivery Method Oxygen Flow Rate FIO2% 07/13/23 14:01 07/13/23 14:15 07/13/23 14:30 Temperature Pulse Rate 64 64 Pulse Rate [Left Brachial] Respiratory Rate 24 18 Blood Pressure 141/61 Blood Pressure [Left Arm] O2 Sat by Pulse Oximetry 97 99 Oxygen Delivery Method Oxygen Flow Rate FIO2% 07/13/23 14:45 07/13/23 15:00 07/13/23 15:00 Temperature Pulse Rate 65 65 Pulse Rate [Left Brachial] Respiratory Rate 17 21 Blood Pressure 125/58 Blood Pressure [Left Arm] O2 Sat by Pulse Oximetry 99 99 Oxygen Delivery Method Oxygen Flow Rate FIO2% 07/13/23 15:42 07/13/23 15:15 07/13/23 15:30 Temperature Pulse Rate 65 64 Pulse Rate [Left Brachial] Respiratory Rate 18 22 18 Blood Pressure Blood Pressure [Left Arm] O2 Sat by Pulse Oximetry 100 100 Oxygen Delivery Method Oxygen Flow Rate FIO2% 07/13/23 15:45 07/13/23 16:00 07/13/23 16:00 Temperature Pulse Rate 65 64 Pulse Rate [Left Brachial] Respiratory Rate 21 23 Blood Pressure 140/64 Blood Pressure [Left Arm] O2 Sat by Pulse Oximetry 99 100 Oxygen Delivery Method Oxygen Flow Rate FIO2% 07/13/23 16:15 07/13/23 16:30 07/13/23 16:36 Temperature 97.8 F Pulse Rate 66 69 Pulse Rate [Left Brachial] Respiratory Rate 44 H 33 H Blood Pressure Blood Pressure [Left Arm] O2 Sat by Pulse Oximetry 99 100 Oxygen Delivery Method Oxygen Flow Rate FIO2% 07/13/23 16:45 07/13/23 17:00 07/13/23 17:00 Temperature Pulse Rate 67 68 Pulse Rate [Left Brachial] Respiratory Rate 24 25 H Blood Pressure 122/58 Blood Pressure [Left Arm] O2 Sat by Pulse Oximetry 100 100 Oxygen Delivery Method Oxygen Flow Rate FIO2% 07/13/23 17:15 07/13/23 16:42 07/13/23 17:30 Temperature Pulse Rate 67 67 Pulse Rate [Left Brachial] Respiratory Rate 24 16 20 Blood Pressure Blood Pressure [Left Arm] O2 Sat by Pulse Oximetry 100 99 Oxygen Delivery Method Oxygen Flow Rate FIO2% 07/13/23 17:45 07/13/23 18:00 07/13/23 18:00 Temperature Pulse Rate 74 71 Pulse Rate [Left Brachial] Respiratory Rate 28 H 21 Blood Pressure 131/60 Blood Pressure [Left Arm] O2 Sat by Pulse Oximetry 100 100 Oxygen Delivery Method Oxygen Flow Rate FIO2% 07/13/23 19:01 07/13/23 19:01 07/13/23 19:00 Temperature Pulse Rate 67 Pulse Rate [Left Brachial] Respiratory Rate 17 Blood Pressure 98/57 Blood Pressure [Left Arm] O2 Sat by Pulse Oximetry 98 Oxygen Delivery Method Nasal Cannula Oxygen Flow Rate 2 FIO2% 07/13/23 20:03 07/13/23 20:03 07/14/23 03:23 Temperature 98.7 F Pulse Rate 69 Pulse Rate [Left Brachial] Respiratory Rate 29 H 24 Blood Pressure 171/72 Blood Pressure [Left Arm] O2 Sat by Pulse Oximetry 99 Oxygen Delivery Method Oxygen Flow Rate FIO2% 07/13/23 21:00 07/13/23 21:01 07/13/23 21:01 Temperature Pulse Rate 67 67 Pulse Rate [Left Brachial] Respiratory Rate 21 23 Blood Pressure 152/67 Blood Pressure [Left Arm] O2 Sat by Pulse Oximetry 100 100 Oxygen Delivery Method Oxygen Flow Rate FIO2% 07/13/23 21:48 07/13/23 21:00 07/13/23 22:01 Temperature Pulse Rate Pulse Rate [Left Brachial] Respiratory Rate 20 Blood Pressure 185/77 Blood Pressure [Left Arm] O2 Sat by Pulse Oximetry Oxygen Delivery Method Nasal Cannula Oxygen Flow Rate 2 FIO2% 28 07/13/23 22:01 07/13/23 22:48 07/13/23 23:01 Temperature Pulse Rate 78 68 Pulse Rate [Left Brachial] Respiratory Rate 36 H 23 24 Blood Pressure Blood Pressure [Left Arm] O2 Sat by Pulse Oximetry 99 98 Oxygen Delivery Method Oxygen Flow Rate FIO2% 07/13/23 23:01 07/13/23 21:00 07/14/23 00:00 Temperature 98.5 F Pulse Rate 67 Pulse Rate [Left Brachial] Respiratory Rate Blood Pressure 118/56 130/60 Blood Pressure [Left Arm] O2 Sat by Pulse Oximetry 100 Oxygen Delivery Method Oxygen Flow Rate FIO2% 07/14/23 00:00 07/14/23 01:01 07/14/23 01:01 Temperature Pulse Rate 64 65 Pulse Rate [Left Brachial] Respiratory Rate 26 H 12 Blood Pressure 164/70 Blood Pressure [Left Arm] O2 Sat by Pulse Oximetry 99 98 Oxygen Delivery Method Oxygen Flow Rate FIO2% 07/14/23 02:01 07/14/23 02:01 07/14/23 03:00 Temperature Pulse Rate 67 67 Pulse Rate [Left Brachial] Respiratory Rate 22 14 Blood Pressure 157/67 Blood Pressure [Left Arm] O2 Sat by Pulse Oximetry 98 99 Oxygen Delivery Method Oxygen Flow Rate FIO2% 07/14/23 03:01 07/14/23 04:00 07/14/23 04:00 Temperature 98.5 F Pulse Rate 71 Pulse Rate [Left Brachial] Respiratory Rate 20 Blood Pressure 125/57 119/58 Blood Pressure [Left Arm] O2 Sat by Pulse Oximetry 99 Oxygen Delivery Method Oxygen Flow Rate FIO2% 07/14/23 04:23 07/14/23 05:00 07/14/23 05:00 Temperature Pulse Rate 69 Pulse Rate [Left Brachial] Respiratory Rate 21 18 Blood Pressure 133/65 Blood Pressure [Left Arm] O2 Sat by Pulse Oximetry 99 Oxygen Delivery Method Oxygen Flow Rate FIO2% 07/14/23 06:00 07/14/23 06:01 07/14/23 06:01 Temperature Pulse Rate 74 68 Pulse Rate [Left Brachial] Respiratory Rate 19 16 Blood Pressure 149/67 Blood Pressure [Left Arm] O2 Sat by Pulse Oximetry 99 100 Oxygen Delivery Method Oxygen Flow Rate FIO2% 07/14/23 07:36 07/14/23 07:01 07/14/23 08:00 Temperature 97.7 F Pulse Rate 65 75 Pulse Rate [Left Brachial] Respiratory Rate 16 21 25 H Blood Pressure Blood Pressure [Left Arm] O2 Sat by Pulse Oximetry 99 100 Oxygen Delivery Method Oxygen Flow Rate FIO2% 07/14/23 08:02 07/14/23 08:02 07/14/23 08:31 Temperature 97.9 F Pulse Rate 71 72 Pulse Rate [Left Brachial] Respiratory Rate 15 16 Blood Pressure 147/63 127/59 Blood Pressure [Left Arm] O2 Sat by Pulse Oximetry 100 94 L Oxygen Delivery Method Room Air Oxygen Flow Rate FIO2% 07/14/23 08:40 07/14/23 14:36 07/14/23 08:15 Temperature Pulse Rate 72 Pulse Rate [Left Brachial] Respiratory Rate 16 22 Blood Pressure Blood Pressure [Left Arm] O2 Sat by Pulse Oximetry 98 Oxygen Delivery Method Room Air Oxygen Flow Rate FIO2% 07/14/23 10:55 07/14/23 10:57 07/14/23 10:57 Temperature Pulse Rate 80 82 Pulse Rate [Left Brachial] Respiratory Rate Blood Pressure 146/66 Blood Pressure [Left Arm] O2 Sat by Pulse Oximetry 98 100 Oxygen Delivery Method Oxygen Flow Rate FIO2% 07/14/23 11:00 07/14/23 11:00 07/14/23 11:15 Temperature 97.7 F 97.7 F Pulse Rate 77 73 Pulse Rate [Left Brachial] Respiratory Rate 23 19 Blood Pressure 153/68 Blood Pressure [Left Arm] O2 Sat by Pulse Oximetry 100 100 Oxygen Delivery Method Oxygen Flow Rate FIO2% 07/14/23 11:15 07/14/23 11:30 07/14/23 11:30 Temperature 97.7 F Pulse Rate 74 Pulse Rate [Left Brachial] Respiratory Rate 17 Blood Pressure 147/66 128/57 Blood Pressure [Left Arm] O2 Sat by Pulse Oximetry 100 Oxygen Delivery Method Oxygen Flow Rate FIO2% 07/14/23 11:45 07/14/23 11:45 07/14/23 12:00 Temperature 97.8 F Pulse Rate 74 Pulse Rate [Left Brachial] Respiratory Rate 19 Blood Pressure 131/58 130/60 Blood Pressure [Left Arm] O2 Sat by Pulse Oximetry 100 Oxygen Delivery Method Oxygen Flow Rate FIO2% 07/14/23 12:00 07/14/23 12:15 07/14/23 12:15 Temperature 98.0 F Pulse Rate 74 73 Pulse Rate [Left Brachial] Respiratory Rate 19 17 Blood Pressure 147/64 Blood Pressure [Left Arm] O2 Sat by Pulse Oximetry 100 99 Oxygen Delivery Method Oxygen Flow Rate FIO2% 07/14/23 12:30 07/14/23 12:30 07/14/23 12:45 Temperature Pulse Rate 71 71 Pulse Rate [Left Brachial] Respiratory Rate 13 17 Blood Pressure 151/65 Blood Pressure [Left Arm] O2 Sat by Pulse Oximetry 100 99 Oxygen Delivery Method Oxygen Flow Rate FIO2% 07/14/23 12:45 07/14/23 12:45 07/14/23 13:00 Temperature Pulse Rate Pulse Rate [Left Brachial] Respiratory Rate Blood Pressure 127/56 127/56 163/72 Blood Pressure [Left Arm] O2 Sat by Pulse Oximetry Oxygen Delivery Method Oxygen Flow Rate FIO2% 07/14/23 13:00 07/14/23 13:00 07/14/23 13:00 Temperature 98.0 F Pulse Rate 71 71 Pulse Rate [Left Brachial] Respiratory Rate 18 18 Blood Pressure 163/72 Blood Pressure [Left Arm] O2 Sat by Pulse Oximetry 100 100 Oxygen Delivery Method Oxygen Flow Rate FIO2% 07/14/23 13:15 07/14/23 13:15 07/14/23 13:30 Temperature Pulse Rate 71 68 Pulse Rate [Left Brachial] Respiratory Rate 18 17 Blood Pressure 154/66 Blood Pressure [Left Arm] O2 Sat by Pulse Oximetry 99 100 Oxygen Delivery Method Oxygen Flow Rate FIO2% 07/14/23 13:30 07/14/23 13:45 07/14/23 13:45 Temperature Pulse Rate 68 Pulse Rate [Left Brachial] Respiratory Rate 17 Blood Pressure 147/65 143/63 Blood Pressure [Left Arm] O2 Sat by Pulse Oximetry 100 Oxygen Delivery Method Oxygen Flow Rate FIO2% 07/14/23 14:00 07/14/23 14:00 07/14/23 14:05 Temperature 97.9 F Pulse Rate 81 71 Pulse Rate [Left Brachial] Respiratory Rate 30 H 19 Blood Pressure 193/128 Blood Pressure [Left Arm] O2 Sat by Pulse Oximetry 100 100 Oxygen Delivery Method Oxygen Flow Rate FIO2% 07/14/23 14:05 07/14/23 14:15 07/14/23 14:15 Temperature Pulse Rate 69 Pulse Rate [Left Brachial] Respiratory Rate 18 Blood Pressure 163/74 154/52 Blood Pressure [Left Arm] O2 Sat by Pulse Oximetry 100 Oxygen Delivery Method Oxygen Flow Rate FIO2% 07/14/23 14:30 07/14/23 14:30 07/14/23 14:45 Temperature Pulse Rate 69 73 Pulse Rate [Left Brachial] Respiratory Rate 17 15 Blood Pressure 157/69 Blood Pressure [Left Arm] O2 Sat by Pulse Oximetry 100 100 Oxygen Delivery Method Oxygen Flow Rate FIO2% 07/14/23 15:00 07/14/23 15:00 07/14/23 15:36 Temperature Pulse Rate 71 Pulse Rate [Left Brachial] Respiratory Rate 19 16 Blood Pressure 159/70 Blood Pressure [Left Arm] O2 Sat by Pulse Oximetry 100 Oxygen Delivery Method Oxygen Flow Rate FIO2% 07/14/23 15:15 07/14/23 15:30 07/14/23 15:45 Temperature Pulse Rate 69 72 76 Pulse Rate [Left Brachial] Respiratory Rate 19 20 24 Blood Pressure Blood Pressure [Left Arm] O2 Sat by Pulse Oximetry 100 100 100 Oxygen Delivery Method Oxygen Flow Rate FIO2% 07/14/23 16:00 07/14/23 16:00 07/14/23 16:08 Temperature Pulse Rate 73 Pulse Rate [Left Brachial] Respiratory Rate 19 Blood Pressure 173/75 164/70 Blood Pressure [Left Arm] O2 Sat by Pulse Oximetry 100 Oxygen Delivery Method Oxygen Flow Rate FIO2% 07/14/23 16:08 07/14/23 16:15 07/14/23 07:00 Temperature 98.0 F Pulse Rate 74 68 Pulse Rate [Left Brachial] Respiratory Rate 19 20 Blood Pressure Blood Pressure [Left Arm] O2 Sat by Pulse Oximetry 100 100 Oxygen Delivery Method Room Air Oxygen Flow Rate FIO2% 07/14/23 16:30 07/14/23 16:45 07/14/23 17:00 Temperature Pulse Rate 76 76 73 Pulse Rate [Left Brachial] Respiratory Rate 18 21 21 Blood Pressure Blood Pressure [Left Arm] O2 Sat by Pulse Oximetry 100 99 99 Oxygen Delivery Method Oxygen Flow Rate FIO2% 07/14/23 17:00 07/14/23 17:15 07/14/23 17:30 Temperature Pulse Rate 75 76 Pulse Rate [Left Brachial] Respiratory Rate 21 23 Blood Pressure 133/62 Blood Pressure [Left Arm] O2 Sat by Pulse Oximetry 100 100 Oxygen Delivery Method Oxygen Flow Rate FIO2% 07/14/23 17:45 07/14/23 18:00 07/14/23 18:00 Temperature Pulse Rate 78 80 Pulse Rate [Left Brachial] Respiratory Rate 18 14 Blood Pressure 129/59 Blood Pressure [Left Arm] O2 Sat by Pulse Oximetry 100 100 Oxygen Delivery Method Oxygen Flow Rate FIO2% 07/14/23 18:15 07/14/23 18:30 07/14/23 18:45 Temperature Pulse Rate 74 76 76 Pulse Rate [Left Brachial] Respiratory Rate 22 20 20 Blood Pressure Blood Pressure [Left Arm] O2 Sat by Pulse Oximetry 99 100 99 Oxygen Delivery Method Oxygen Flow Rate FIO2% 07/14/23 19:00 07/14/23 19:00 07/14/23 19:00 Temperature Pulse Rate 72 Pulse Rate [Left Brachial] Respiratory Rate 21 Blood Pressure 144/64 Blood Pressure [Left Arm] O2 Sat by Pulse Oximetry 100 Oxygen Delivery Method Room Air Oxygen Flow Rate FIO2% 07/14/23 20:00 07/14/23 20:00 07/14/23 20:59 Temperature 97.9 F Pulse Rate 78 Pulse Rate [Left Brachial] Respiratory Rate 22 18 Blood Pressure 123/57 Blood Pressure [Left Arm] O2 Sat by Pulse Oximetry 99 Oxygen Delivery Method Oxygen Flow Rate FIO2% 07/14/23 21:00 07/14/23 21:00 07/14/23 20:10 Temperature Pulse Rate 79 Pulse Rate [Left Brachial] Respiratory Rate 6 L Blood Pressure 145/64 Blood Pressure [Left Arm] O2 Sat by Pulse Oximetry 99 Oxygen Delivery Method Nasal Cannula Oxygen Flow Rate 2 FIO2% 28 07/14/23 22:00 07/14/23 22:00 07/14/23 21:59 Temperature Pulse Rate 82 Pulse Rate [Left Brachial] Respiratory Rate 31 H 22 Blood Pressure 131/64 Blood Pressure [Left Arm] O2 Sat by Pulse Oximetry 100 Oxygen Delivery Method Oxygen Flow Rate FIO2% 07/14/23 23:00 07/14/23 23:00 07/15/23 00:00 Temperature 98.5 F Pulse Rate 72 Pulse Rate [Left Brachial] Respiratory Rate 22 Blood Pressure 130/57 146/65 Blood Pressure [Left Arm] O2 Sat by Pulse Oximetry 99 Oxygen Delivery Method Oxygen Flow Rate FIO2% 07/15/23 00:00 07/15/23 01:00 07/15/23 01:00 Temperature Pulse Rate 74 69 Pulse Rate [Left Brachial] Respiratory Rate 20 22 Blood Pressure 145/65 Blood Pressure [Left Arm] O2 Sat by Pulse Oximetry 100 100 Oxygen Delivery Method Oxygen Flow Rate FIO2% 07/15/23 02:00 07/15/23 02:00 07/15/23 03:00 Temperature Pulse Rate 64 68 Pulse Rate [Left Brachial] Respiratory Rate 18 22 Blood Pressure 113/53 Blood Pressure [Left Arm] O2 Sat by Pulse Oximetry 97 100 Oxygen Delivery Method Oxygen Flow Rate FIO2% 07/15/23 03:00 07/15/23 04:00 07/15/23 04:00 Temperature 98.2 F Pulse Rate 68 Pulse Rate [Left Brachial] Respiratory Rate 26 H Blood Pressure 157/68 135/60 Blood Pressure [Left Arm] O2 Sat by Pulse Oximetry 100 Oxygen Delivery Method Oxygen Flow Rate FIO2% 07/15/23 04:22 07/15/23 05:00 07/15/23 05:00 Temperature Pulse Rate 72 Pulse Rate [Left Brachial] Respiratory Rate 22 23 Blood Pressure 126/61 Blood Pressure [Left Arm] O2 Sat by Pulse Oximetry 99 Oxygen Delivery Method Oxygen Flow Rate FIO2% 07/15/23 05:07/15/23 06:00 07/15/23 06:00 Temperature Pulse Rate 68 Pulse Rate [Left Brachial] Respiratory Rate 20 17 Blood Pressure 126/58 Blood Pressure [Left Arm] O2 Sat by Pulse Oximetry 100 Oxygen Delivery Method Oxygen Flow Rate FIO2% 07/15/23 07:00 07/15/23 07:00 07/15/23 07:00 Temperature Pulse Rate 63 Pulse Rate [Left Brachial] Respiratory Rate 19 Blood Pressure 114/53 Blood Pressure [Left Arm] O2 Sat by Pulse Oximetry 100 Oxygen Delivery Method Room Air Oxygen Flow Rate FIO2% 07/15/23 08:00 07/15/23 08:01 07/15/23 08:01 Temperature Pulse Rate 68 67 Pulse Rate [Left Brachial] Respiratory Rate 16 21 Blood Pressure 142/65 Blood Pressure [Left Arm] O2 Sat by Pulse Oximetry 100 100 Oxygen Delivery Method Oxygen Flow Rate FIO2% 07/15/23 09:10 07/15/23 09:00 07/15/23 09:00 Temperature Pulse Rate 67 Pulse Rate [Left Brachial] Respiratory Rate 21 Blood Pressure 139/63 Blood Pressure [Left Arm] O2 Sat by Pulse Oximetry 100 Oxygen Delivery Method Room Air Oxygen Flow Rate 2 FIO2% 21 07/15/23 10:00 07/15/23 10:00 Temperature Pulse Rate 67 Pulse Rate [Left Brachial] Respiratory Rate 13 Blood Pressure 125/60 Blood Pressure [Left Arm] O2 Sat by Pulse Oximetry Oxygen Delivery Method Oxygen Flow Rate FIO2% Labs: Laboratory Last Values WBC 2.8 X10^3/uL (3.6-10.0) L 07/15/23 08:05 RBC 2.73 X10^6/uL (4.7-6.0) L 07/15/23 08:05 Hgb 8.5 g/dL (13.5-18.0) L 07/15/23 08:05 Hct 24.6 % (42.0-54.0) L 07/15/23 08:05 MCV 90.3 fL (80.0-100.0) 07/15/23 08:05 MCH 31.2 pg (27.0-34.0) 07/15/23 08:05 MCHC 34.5 g/dL (33.0-35.0) 07/15/23 08:05 RDW 14.4 % (11.6-16.5) 07/15/23 08:05 Plt Count 50 X10^3/uL (150.0-450.0) L 07/15/23 08:05 MPV 8.0 fL (7.4-11.0) 07/15/23 08:05 Neut % (Auto) 68.6 % (42.0-75.0) 07/15/23 08:05 Lymph % (Auto) 18.1 % (21.0-51.0) L 07/15/23 08:05 Storey % (Auto) 10.5 % (0.0-13.0) 07/15/23 08:05 Eos % (Auto) 2.3 % (0.9-2.9) 07/15/23 08:05 Baso % (Auto) 0.5 % (0.2-1.0) 07/15/23 08:05 Neut # (Auto) 1.9 x10^3/uL (2.2-4.8) L 07/15/23 08:05 Lymph # (Auto) 0.5 X10^3/uL (1.3-2.9) L 07/15/23 08:05 Storey # (Auto) 0.3 x10^3/uL (0.3-0.8) 07/15/23 08:05 Eos # (Auto) 0.1 x10^3/uL (0.0-0.2) 07/15/23 08:05 Baso # (Auto) 0.0 X10^3/uL (0.0-0.1) 07/15/23 08:05 Absolute Nucleated RBC 0.4 /100WBC 07/15/23 08:05 APTT 37.1 SECONDS (22.9-36.5) H 07/15/23 08:05 PTT Comment - 07/15/23 08:05 Fibrinogen 440 mg/dL (239-489) 07/15/23 08:05 Sodium 141 mmol/L (136-145) 07/12/23 05:57 Corrected Sodium 143 mmol/L (136-145) 07/12/23 05:57 Potassium 3.9 mmol/L (3.5-5.1) 07/12/23 05:57 Chloride 105 mmol/L (98-107) 07/12/23 05:57 Carbon Dioxide 27.1 mmol/L (21-32) 07/12/23 05:57 BUN 17 mg/dL (7-18) 07/12/23 05:57 Creatinine 0.83 mg/dL (0.70-1.30) 07/12/23 05:57 Est GFR (MDRD) Af Amer > 60 (>60) 07/12/23 05:57 Est GFR (MDRD) Non-Af > 60 (>60) 07/12/23 05:57 Glucose 170 mg/dL (65-99) H 07/12/23 05:57 POC Glucose (mg/dL) 130 mg/dL (65-99) H 07/15/23 05:27 Calcium 9.3 mg/dL (8.5-10.1) 07/12/23 05:57 Corrected Calcium 9.9 mg/dL (8.5-10.1) 07/12/23 05:57 Total Bilirubin 0.30 mg/dL (0.2-1.0) 07/12/23 05:57 AST 16 Units/L (15-37) 07/12/23 05:57 ALT 26 Units/L (12-78) 07/12/23 05:57 Alkaline Phosphatase 73 Units/L (46-116) 07/12/23 05:57 Total Protein 7.1 g/dL (6.4-8.2) 07/12/23 05:57 Albumin 3.2 g/dL (3.4-5.0) L 07/12/23 05:57 Globulin 3.9 g/dL (2.5-4.5) 07/12/23 05:57 Albumin/Globulin Ratio 0.8 Ratio (1.1-2.1) L 07/12/23 05:57 Blood Type O POSITIVE 07/14/23 07:35 Blood Type O POSITIVE 07/14/23 07:35 Antibody Screen Negative 07/14/23 07:35 Crossmatch See Detail 07/14/23 07:35 Reason For Visit: CRITICAL ISCHEMIA LEFT LEG Discharge Date Discharge Date: 07/15/23 Discharge Diagnosis All Active Problems (Updated 07/11/23 @ 23:50 by Herrera Avery) Hyperlipidemia (Acute) Gastro-esophageal reflux disease without esophagitis (Acute) Carotid stenosis, bilateral (Acute) History of stroke (Acute) Chronic ischemic heart disease, unspecified (Acute) Essential (primary) hypertension (Acute) 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 Pt is to keep follow up appointment as instructed and take medications as ordered. Discharge Medications Discharge Medications: No Known Allergies Allergy (Verified 07/11/23 18:37) CONTINUE taking the following medications amlodipine 5 mg-benazepril 10 mg capsule 1 cap PO DAILY 07/11/23 [History] empagliflozin 25 mg tablet (Jardiance) 25 mg PO QAM 07/11/23 [History] fluconazole 100 mg tablet 100 mg PO QDAY 07/11/23 [History] folic acid 1 mg tablet 1 mg PO QDAY 07/11/23 [History] metoprolol succinate 50 mg tablet,extended release 24 hr 50 mg PO QDAY 07/11/23 [History] omeprazole 40 mg capsule,delayed release 40 mg PO DAILY 07/11/23 [History] oxymetazoline 0.05 % nasal spray 2 spray intranasal TID PRN Allergy Symptoms 07/11/23 [History] rosuvastatin 20 mg tablet 20 mg PO QDAY 07/11/23 [History] solifenacin 10 mg tablet (Vesicare) 10 mg PO QDAY 07/11/23 [History] sotalol 80 mg tablet 80 mg PO BID 07/11/23 [History] tamsulosin 0.4 mg capsule 0.4 mg PO QDAY 07/11/23 [History] Discharge Disposition Assessment: see hospitalpital course Discharge Plan Discharge Plan Hospital Course: This is a 67 year old male who has had left arterial LE intervention with multiple stents placed in the left superficial femorla artery who had been having some problems and was going to have repeat investigation in the operating room in a couple of weeks. However he had an upper endoscopy planned and all of his aspirin and other anti-coagulation medications were discontinued in anticipation of a biopsy of the time of the EGD and later that afternoon he complained of acute pain of the left leg. On presentation he had no pulses in the left leg. Repeat CT angiogram was not obtained. 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 He underwent Angiojet thrombectomy and placement of a thrombolytic catheter in the left leg which was infused for 24 hours and then observed another 24 and taken back to the operating Suite on July the where he underwent repeat arteriogram showing resolution of the clot in the left superficial femoral artery and stents with 3 vessel runoff. He had balloon angioplasty of the superficial femoral artery inside the stents and he also required stenting of both common arteries, the left side was nearly completely occcluded but because of the location required kissing stents to prevent collapse/compression of the right iliac artery . He has done well with a warm left foot with excellent doppler signals in the left ankle. He will be discharged home on his usual medications including his blood thinner and antiplatelet medications. He will follow with me in 1 week. On discharge his creatinine is 0.83. He lost some blood throught the right groin sheath will on TPA and his hemoglobin has risen to 8.5 grams . Suggest OTC iron supplement . Patient Disposition: 01 HOME, SELF-CARE Condition: Stable Health Concerns: Post Hospitalization: new medications and changes needed to prevent readmission or further decline. Pt educated and given instructions on all concerns. Care Plan Goals: Problem: Pain/Alteration in Comfort Goal: Improve/ Resolve Pain; Achieve Pain Tolerance Instructions: Take pain medications as prescribed. Contact your primary care provider if your pain is unrelieved or worsens. Follow up with primary care provider as directed. Plan of Treatment: Continue with present treatment and follow up plan. Pt is to keep follow up appointment as instructed and take medications as ordered. Assessment: see hospitalpital course Prescription drug monitoring program results: PDMP reviewed and no concerns identified Prescriptions: Continued sotalol 80 mg tablet 80 mg PO BID tamsulosin 0.4 mg capsule 0.4 mg PO QDAY metoprolol succinate 50 mg tablet extended release 24 hr 50 mg PO QDAY amlodipine-benazepril 5-10 mg Capsule 1 cap PO DAILY folic acid 1 mg Tablet 1 mg PO QDAY omeprazole 40 mg Capsule,Delayed Release(Dr/Ec) 40 mg PO DAILY fluconazole 100 mg Tablet 100 mg PO QDAY Rx Instructions: Daily x 10 days, filled on 07/11/2023 rosuvastatin 20 mg Tablet 20 mg PO QDAY Jardiance 25 mg Tablet 25 mg PO QAM solifenacin [Vesicare] 10 mg Tablet 10 mg PO QDAY oxymetazoline 0.05 % [place]dwell,Non-Aerosol 2 spray INTRANASAL TID PRN (Reason: Allergy Symptoms) Follow ups/Referrals Follow ups/Referrals: Herrera Avery [Primary Care Provider] - 07/25/23 2:00 pm Instructions Instructions: Endovascular Therapy for Peripheral Vascular Disease, Care After Stand Alone Forms: Excuse From Work or School, Post Hospital Follow Up Care
--- NOTE | 2023-07-16 23:44 | DR.OPNOTE ---
OP NOTE Pre-Op Diagnosis: critical ischemia left leg , Post-Op Diagnosis: same Procedure Date Date Of Procedure: 07/14/23 Procedure: PROCEDURE: Aortogram, arteriogram left leg, drug coated balloon angioplasty of the entire left superficial femoral artery stents, stenting left common iliac artery, stenting right common iliac artery, stenting right external iliac artery NARRATIVE : 2 days previously the patient had had undergone placement of thromb olytic catheter with 24-hour thrombolysis of completely occluded left superficial femoral artery stents. Studies at that time showed near complete occlusion of the left common iliac artery with severe left external artery disease and question of significant right common iliac artery stenosis. All of these were confirmed. The patient was taken to the operating suite and placed in the supine position. The entire left leg and right groin were prepped and draped in sterile fashion. Time out for the procedure obtained. Sedation was supervised by myself. The EKOS catheter had been removed from the sheath and through the remaining thrombolytic sheath we placed a 0.035 inch Advantage glidewire. Through the Catapult sheath positioned in the left external iliac artery we performed selective arteriogram showing near complete resolution of all of the thrombus inside the left superficial femoral artery. There was some residual disease. The wire on the left was taken all the way into the left posterior tibial artery.This was selective catherization. The entire left superficial femoral artery and the stents placed there were balloon dilated sequentially with [employer] Durand drug coated balloons using two 200 millimeter x 6 millimeters ballons and finally a 6 millimeter x 150 millimeter balloon. All were inflated for 3 minutes and then deflated . Post procedure arteriogram showed excellent result. At this point ultrasound used to identify the left common femoral artery and the skin overlying it infiltrated with 0.5 % Marcaine . Ultrasound used to guide puncture of the left common femoral artery and a 0.012 inch wire placed. Incision made over the guide wire with a #11 knife blade and a micro sheath placed over the guide wire into the left femoral artery . Small wire exchanged for a 0.035 inch Advantage glide wire and the micro sheath exchanged for a 7 Fr vascular sheath . The Catapult sheath in the right groin was pulled back in to the right external iliac arteey. Arteriogram performed of both iliac arteries and the aorta showing near complete occlusion in the left common iliac artery with severe disease of the left common iliac artery and severe stenosis of the right external iliac artery . On the right side we placed over the wire a 9 millimeter by 37 millimeter [employer] stent and on the left side place a [employer] 9 millimetre by 57 millimetre stent, Each stent were positioned over the area of severe disease of the common iliac arteries reestablishing a new aortic takeoff and balloon dilated these to full expansion with kissing balloons . On the left side we then placed an Faustina 7 mm x 80 millimeter drug coated stent positioned it with mild overlap of the 9 millimeter stent and balloon dilated it with a darinel 7 mm balloon. Post procerure arteriogram through the aorta and iliac arteries were now normal. The sheaths in each groin were removed and over the wires we place Angio seal devices used to close the puncture of both femoral arteries. Dressings applied and the patient returned to the ICU. Type of Anesthesia: Local (0.5% Marcaine ) Anesthesia Comment: plus MAC Findings: Near complete occlusion left common iliac artery, severe stenosis right common iliac artery, severe stenosis left external iliac artery, s/p thrombolysis of thrombotic occlusion left superficial femoral artery stents with residual disease Type of Fluids Used:: Lactated Ringers Total Amount of Fluid Infused:: 400cc Urine output: 100 cc EBL: 150 cc Hardware: Faustina 7mm x 80 mm drug coated stent, [employer] 9x 37 mm stent, [employer] 9x 57 mm stent Complications:: none Needle/Sponge Count:: correct Disposition/Condition: Pt. tolerated procedure without difficulty. Taken to [facility] in stable condition.
== END 2023-07-15 11:45 | disposition home or self-care (01) | DRG 279 ==
LOC: MED/SURG 17:36 → ICU 07-12 12:48
PROVIDERS: ADMIT Surgery; ATTEND Surgery
DX: I10 Essential (primary) hypertension; Z86.73 Personal history of transient ischemic attack (TIA), and cerebral infarction without residual deficits; I70.223 Atherosclerosis of native arteries of extremities with rest pain, bilateral legs; E78.5 Hyperlipidemia, unspecified; I65.23 Occlusion and stenosis of bilateral carotid arteries; K21.9 Gastro-esophageal reflux disease without esophagitis; I25.10 Atherosclerotic heart disease of native coronary artery without angina pectoris

== ENCOUNTER 2023-07-17 02:02 | Inpatient (IN) ==
--- NOTE | 2023-07-17 02:34 | DR.EXTPAIN ---
HPI Time seen Time Seen by Provider: 07/17/23 02:32 PCP Primary Care Physician: Complaint/Symptoms Chief Complaint:: pt stated he was released from icu on tuesday. he stated since tuesday he ahs not been able to walk without being in alot pain. COVID-19 Coronavirus risk:travel/contact w/high risk person: No Has patient experienced Coronavirus symptoms: No Source History Provided: Patient Mode of arrival Mode of Arrival: Wheelchair Timing Onset of Chief Complaint: 07/15/23 PMH PMH Past Medical History: Yes Past Medical History: Anemia, Cirrhosis, Coronary Artery Disease, Diabetes, Dyslipidemia, GERD and Hypertension Past Surgical History: Yes Surgical History: CABG/Valve Surgery and Carotid Endarterectomy Family History History of Family Medical Conditions: Yes Family Medical History: MA and Sudden Cardiac Social History Lives With: Spouse Travel Risk Coronavirus risk:travel/contact w/high risk person: No Has patient experienced Coronavirus symptoms: No Infectious screening In the last 2 months have you had wt loss of >10#?: NO Have you had fever, night sweats or hemotysis?: No Have you traveled outside the country in the last 6 months?: No Isolation: Standard PE Vital Signs Vitals: Vital Signs Temperature 97.7 F Pulse Rate 60 Pulse Rate 83 Respiratory Rate 20 Respiratory Rate 20 Respiratory Rate 20 Blood Pressure 112/57 Blood Pressure 88/51 O2 Sat by Pulse Oximetry 100 O2 Sat by Pulse Oximetry 95 Opioid Opioid Risk Tool Age (Ye box if 16-45): No History of Preadolescent Sexual Abuse: No Total: 0 Total Score Risk Category: Low Risk Copyright: Ramón JACOBS predicting aberrant behaviors Discharge Plan Discharge Plan Patient Disposition: HOME, SELF-CARE Condition: Stable Prescriptions: No Action sotalol 80 mg tablet 80 mg PO BID tamsulosin 0.4 mg capsule 0.4 mg PO QDAY metoprolol succinate 50 mg tablet extended release 24 hr 50 mg PO QDAY amlodipine-benazepril 5-10 mg Capsule 1 cap PO DAILY folic acid 1 mg Tablet 1 mg PO QDAY omeprazole 40 mg Capsule,Delayed Release(Dr/Ec) 40 mg PO DAILY fluconazole 100 mg Tablet 100 mg PO QDAY Rx Instructions: Daily x 10 days, filled on 07/11/2023 rosuvastatin 20 mg Tablet 20 mg PO QDAY Jardiance 25 mg Tablet 25 mg PO QAM solifenacin [Vesicare] 10 mg Tablet 10 mg PO QDAY fluconazole 100 mg tablet 100 mg PO QDAY cilostazol 100 mg tablet 100 mg PO BID clopidogrel 75 mg tablet 75 mg PO QDAY hydrocodone-acetaminophen 10-325 mg tablet 1 tab PO Q8H PRN (Reason: pain) Ozempic 0.25 mg or 0.5 mg (2 mg/3 mL) pen injector 0.5 mg SUBCUT QWEEK Health Concerns: Post Hospitalization: new medications and changes needed to prevent readmission or further decline. Pt educated and given instructions on all concerns. Plan of Treatment: Continue with present treatment and follow up plan. Pt is to keep follow up appointment as instructed and take medications as ordered. Orders to Discharge Patient Discharge Orders: Transfer (Routine); Ordered 07/17/23 Ordered By: LOLA CHURCH Follow ups/Referrals Follow ups/Referrals: Herrera Avery [Primary Care Provider] - 3 days Instructions Stand Alone Forms: Post Hospital Follow Up Care
[2023-07-17] MEDS: LOVENOX INJ 80 MG SYR SC ONE (02:45)
[2023-07-17] MEDS: LOVENOX INJ 40 MG SYR SC ONE ×2 (02:52→20:27)
[2023-07-17] MEDS: ZOFRAN INJ 4 MG VIAL IVP ONE (03:01)
[2023-07-17] MEDS: NS 1,000 ML IV 1,000 ML IV ONE (03:01)
[2023-07-17] MEDS: DILAUDID INJ IVP ONE (03:03)
[2023-07-17 03:38] LABS: HEMOGLOBIN 8.2 g/dL (13.5-18.0); WHITE BLOOD COUNT 3.6 X10^3/uL (3.6-10.0)
[2023-07-17 03:42] LABS: BASOPHILS % (AUTO) 0.6 % (0.2-1.0); EOSINOPHILS # (AUTO) 0.1 x10^3/uL (0.0-0.2); EOSINOPHILS % (AUTO) 2.1 % (0.9-2.9); HEMATOCRIT 23.7 % (42.0-54.0); LYMPHOCYTES # (AUTO) 0.4 X10^3/uL (1.3-2.9); LYMPHOCYTES % (AUTO) 12.4 % (21.0-51.0); MEAN CORPUSCULAR HEMOGLOBIN 31.2 pg (27.0-34.0); MEAN CORPUSCULAR HGB CONC 34.7 g/dL (33.0-35.0); MEAN CORPUSCULAR VOLUME 89.9 fL (80.0-100.0); MEAN PLATELET VOLUME 7.8 fL (7.4-11.0); MONOCYTES # (AUTO) 0.4 x10^3/uL (0.3-0.8); MONOCYTES % (AUTO) 10.4 % (0.0-13.0); NEUTROPHILS # (AUTO) 2.7 x10^3/uL (2.2-4.8); NEUTROPHILS % (AUTO) 74.5 % (42.0-75.0); PLATELET COUNT 82 X10^3/uL (150.0-450.0); RED BLOOD COUNT 2.64 X10^6/uL (4.7-6.0); RED CELL DISTRIBUTION WIDTH 14.4 % (11.6-16.5)
[2023-07-17 03:52] LABS: ALANINE AMINOTRANSFERASE 15 Units/L (12-78); ALBUMIN 2.7 g/dL (3.4-5.0); ALKALINE PHOSPHATASE 62 Units/L (46-116); ASPARTATE AMINO TRANSFERASE 12 Units/L (15-37); BLOOD UREA NITROGEN 16 mg/dL (7-18); CALCIUM 8.7 mg/dL (8.5-10.1); CHLORIDE 103 mmol/L (98-107); COR CA(FOR HYPOALB) 9.7 mg/dL (8.5-10.1); COR NA(FOR HYPERGLY) 143 mmol/L (136-145); CREATININE 1.05 mg/dL (0.70-1.30); GLUCOSE 242 mg/dL (65-99); POTASSIUM 3.6 mmol/L (3.5-5.1); SODIUM 140 mmol/L (136-145); TOTAL PROTEIN 6.6 g/dL (6.4-8.2); eGFR NON BLACK RACES > 60 (>60)
[2023-07-17 05:44] VITALS: BMI 25.1
[2023-07-17] MEDS: LR 1,000 ML IV 1,000 ML IV SCH (06:02)
[2023-07-17 06:35] LABS: BILIRUBIN,URINE NEGATIVE (NEGATIVE); BLOOD/HEMOGLOBIN,URINE 1+ (NEGATIVE); GLUCOSE, URINE 4+ (NEGATIVE); KETONES,URINE NEGATIVE (NEGATIVE); LEUKOCYTE ESTERASE ,URINE NEGATIVE (NEGATIVE); NITRITES,URINE NEGATIVE (NEGATIVE); PROTEIN,URINE NEGATIVE (NEGATIVE); UROBILINOGEN,URINE NORMAL (NORMAL)
[2023-07-17 06:36] LABS: APPEARANCE,URINE CLEAR (CLEAR); COLOR,URINE YELLOW (YELLOW)
[2023-07-17 06:43] LABS: RBC,URINE 0-2 /HPF (0-3); SQUAMOUS EPITHELIAL CELL,UR NEGATIVE /HPF (NEGATIVE)
[2023-07-17 06:44] LABS: BACTERIA,URINE TRACE /HPF (NEGATIVE)
[2023-07-17] MEDS ORDERED: PLETAL PO SCH (09:00)
[2023-07-17] MEDS: DILAUDID INJ IVP PRN (09:36)
[2023-07-17] MEDS: LOTENSIN TAB 10 MG PO SCH (10:21)
[2023-07-17] MEDS: PriLOSEC PO SCH (10:21)
[2023-07-17] MEDS: BETAPACE AF PO SCH (10:21)
[2023-07-17] MEDS: FOLIC ACID TAB 1 MG PO SCH (10:26)
[2023-07-17] MEDS: FLOMAX PO SCH (10:26)
[2023-07-17] MEDS: DIFLUCAN PO SCH (10:26)
[2023-07-17] MEDS: FARXIGA PO SCH (10:27)
[2023-07-17] MEDS: DETROL LA 2 MG CAP EXT REL PO SCH (10:27)
[2023-07-17] MEDS: LOVENOX INJ 80 MG SYR SC SCH (11:41)
--- NOTE | 2023-07-17 12:56 | DR.H&P ---
H&P History & Physical for Day of: H&P Date: 07/17/23 Chief Complaint Chief Complaint: painful right leg Allergies Allergies Allergy/AdvReac Type Severity Reaction Status Date / Time No Known Allergies Allergy Verified 07/11/23 18:37 History of Present Illness History of Present Illness: This patient is a 67 year old male who had been evaluated for bilateral significant peripheral arterial disease who was scheduled for intervention of the left leg first and then the right leg beginning in a couple of weeks. However he underwent upper endoscopy and all of his blood thinners and anti platlet drugs were stopped and immediately afterwards he had acute pain in the left leg and was admitted. On table arteriogram showed severe stenosis of the left and right common iliac arteries and severe disease of the left external iliac artery as well as complete thrombosis of all of the stents in the left superficial femoral artery with good runoff. He underwent overnight thrombolysis with TPA of the left leg stents and returned 48 hours later where he underwent stenting of the bilateral common iliac arteries and the left external iliac artery with angioplasty of the stents of the left leg with good flow to the left leg. He did well and discharged home on the 14 of July. He returned today complaining of increasing pain of his right leg. He is known to have significant stenosis of the right superficial femoral artery. He did not start his blood thinners immediately after arriving home. His left leg is doing well at this time. Past Medical History Past Medical History: Anemia, Cirrhosis, Coronary Artery Disease, Diabetes, Dyslipidemia, GERD and Hypertension Additional Medical History: carotid artery stenosis s/p stenting of both , back pain Past Surgical History Surgical History: CABG/Valve Surgery and Carotid Endarterectomy Additional Surgical History: b/l inguinal hernia repair,b/ cataract surgery, Hx stenting left SFA Family History Family Medical History: [place] and Sudden Cardiac Social History Does patient currently use any type of tobacco product: No Type of Tobacco Use: None Does any household member use tobacco: No Alcohol Use: None Drug Use: None Medications Home Medications: Home Medications Medication Instructions Recorded Confirmed Type amlodipine 5 mg-benazepril 10 mg 1 cap PO DAILY 07/11/23 07/17/23 History capsule empagliflozin 25 mg tablet 25 mg PO QAM 07/11/23 07/17/23 History (Jardiance) fluconazole 100 mg tablet 100 mg PO QDAY 07/11/23 07/17/23 History folic acid 1 mg tablet 1 mg PO QDAY 07/11/23 07/17/23 History metoprolol succinate 50 mg 50 mg PO QDAY 07/11/23 07/17/23 History tablet,extended release 24 hr omeprazole 40 mg capsule,delayed 40 mg PO DAILY 07/11/23 07/17/23 History release rosuvastatin 20 mg tablet 20 mg PO QDAY 07/11/23 07/17/23 History solifenacin 10 mg tablet (Vesicare) 10 mg PO QDAY 07/11/23 07/17/23 History sotalol 80 mg tablet 80 mg PO BID 07/11/23 07/17/23 History tamsulosin 0.4 mg capsule 0.4 mg PO QDAY 07/11/23 07/17/23 History cilostazol 100 mg tablet 100 mg PO BID 07/17/23 07/17/23 History clopidogrel 75 mg tablet 75 mg PO QDAY 07/17/23 07/17/23 History fluconazole 100 mg tablet 100 mg PO QDAY 07/17/23 07/17/23 History hydrocodone 10 mg-acetaminophen 1 tab PO Q8H PRN pain 07/17/23 07/17/23 History 325 mg tablet semaglutide 0.25 mg or 0.5 mg (2 0.5 mg subcut QWEEK 07/17/23 07/17/23 History mg/3 mL) subcutaneous pen injector (Ozempic) Labs 07/17/23 03:00 07/17/23 03:00 Labs: Laboratory WBC 3.6 X10^3/uL (3.6-10.0) 07/17/23 03:00 RBC 2.64 X10^6/uL (4.7-6.0) L 07/17/23 03:00 Hgb 8.2 g/dL (13.5-18.0) L 07/17/23 03:00 Hct 23.7 % (42.0-54.0) L 07/17/23 03:00 MCV 89.9 fL (80.0-100.0) 07/17/23 03:00 MCH 31.2 pg (27.0-34.0) 07/17/23 03:00 MCHC 34.7 g/dL (33.0-35.0) 07/17/23 03:00 RDW 14.4 % (11.6-16.5) 07/17/23 03:00 Plt Count 82 X10^3/uL (150.0-450.0) L 07/17/23 03:00 MPV 7.8 fL (7.4-11.0) 07/17/23 03:00 Neut % (Auto) 74.5 % (42.0-75.0) 07/17/23 03:00 Lymph % (Auto) 12.4 % (21.0-51.0) L 07/17/23 03:00 [place] % (Auto) 10.4 % (0.0-13.0) 07/17/23 03:00 Eos % (Auto) 2.1 % (0.9-2.9) 07/17/23 03:00 Baso % (Auto) 0.6 % (0.2-1.0) 07/17/23 03:00 Neut # (Auto) 2.7 x10^3/uL (2.2-4.8) 07/17/23 03:00 Lymph # (Auto) 0.4 X10^3/uL (1.3-2.9) L 07/17/23 03:00 [place] # (Auto) 0.4 x10^3/uL (0.3-0.8) 07/17/23 03:00 Eos # (Auto) 0.1 x10^3/uL (0.0-0.2) 07/17/23 03:00 Baso # (Auto) 0.0 X10^3/uL (0.0-0.1) 07/17/23 03:00 Absolute Nucleated RBC 0.1 /100WBC 07/17/23 03:00 Sodium 140 mmol/L (136-145) 07/17/23 03:00 Corrected Sodium 143 mmol/L (136-145) 07/17/23 03:00 Potassium 3.6 mmol/L (3.5-5.1) 07/17/23 03:00 Chloride 103 mmol/L (98-107) 07/17/23 03:00 Carbon Dioxide 26.0 mmol/L (21-32) 07/17/23 03:00 BUN 16 mg/dL (7-18) 07/17/23 03:00 Creatinine 1.05 mg/dL (0.70-1.30) 07/17/23 03:00 Est GFR (MDRD) Af Amer > 60 (>60) 07/17/23 03:00 Est GFR (MDRD) Non-Af > 60 (>60) 07/17/23 03:00 Glucose 242 mg/dL (65-99) H 07/17/23 03:00 POC Glucose (mg/dL) 134 mg/dL (65-99) H 07/17/23 11:46 Calcium 8.7 mg/dL (8.5-10.1) 07/17/23 03:00 Corrected Calcium 9.7 mg/dL (8.5-10.1) 07/17/23 03:00 Total Bilirubin 0.90 mg/dL (0.2-1.0) 07/17/23 03:00 AST 12 Units/L (15-37) L 07/17/23 03:00 ALT 15 Units/L (12-78) 07/17/23 03:00 Alkaline Phosphatase 62 Units/L (46-116) 07/17/23 03:00 Total Protein 6.6 g/dL (6.4-8.2) 07/17/23 03:00 Albumin 2.7 g/dL (3.4-5.0) L 07/17/23 03:00 Globulin 3.9 g/dL (2.5-4.5) 07/17/23 03:00 Albumin/Globulin Ratio 0.7 Ratio (1.1-2.1) L 07/17/23 03:00 Specimen Type Clean catch urine 07/17/23 06:22 Urine Color Yellow (YELLOW) 07/17/23 06:22 Urine Appearance Clear (CLEAR) 07/17/23 06:22 Urine pH 5.0 (5.0 - 8.0) 07/17/23 06:22 Ur Specific Willis 1.015 (1.000-1.030) 07/17/23 06:22 Urine Protein Negative (NEGATIVE) 07/17/23 06:22 Urine Glucose (UA) 4+ (NEGATIVE) 07/17/23 06:22 Urine Ketones Negative (NEGATIVE) 07/17/23 06:22 Urine Blood 1+ (NEGATIVE) 07/17/23 06:22 Urine Nitrite Negative (NEGATIVE) 07/17/23 06:22 Urine Bilirubin Negative (NEGATIVE) 07/17/23 06:22 Urine Urobilinogen Normal (NORMAL) 07/17/23 06:22 Ur Leukocyte Esterase Negative (NEGATIVE) 07/17/23 06:22 Urine RBC 0-2 /HPF (0-3) 07/17/23 06:22 Urine WBC 0-2 /HPF (0-5) 07/17/23 06:22 Ur Squamous Epith Cells Negative /HPF (NEGATIVE) 07/17/23 06:22 Urine Bacteria Trace /HPF (NEGATIVE) 07/17/23 06:22 Urine Mucus Rare /HPF (NEGATIVE) 07/17/23 06:22 Ur Culture Indicated? No/not indicated 07/17/23 06:22 Review of Systems Constitutional: See HPI Eyes: No Symptoms Reported ENT: No Symptoms Reported Respiratory: No Symptoms Reported Cardiovascular: No Symptoms Reported Gastrointestinal: No Symptoms Reported Genitourinary: No Symptoms Reported Musculoskeletal: See HPI Skin: See HPI Neurological: No Symptoms Reported Physical Exam Vital Signs: Vital Signs Temperature 97.5 F Temperature 97.6 F Pulse Rate [Apical] 76 Pulse Rate [Apical] 73 Pulse Rate [Apical] 67 Pulse Rate [Apical] 63 Pulse Rate [Apical] 68 Pulse Rate [Apical] 85 Pulse Rate 68 Respiratory Rate 15 Respiratory Rate 15 Respiratory Rate 15 Respiratory Rate 22 Respiratory Rate 16 Respiratory Rate 28 Respiratory Rate 23 Respiratory Rate 24 Respiratory Rate 16 Blood Pressure [Right Arm] 144/67 Blood Pressure [Right Arm] 134/65 Blood Pressure [Right Arm] 137/63 Blood Pressure [Right Arm] 126/103 Blood Pressure [Right Arm] 107/53 Blood Pressure [Right Arm] 122/56 Blood Pressure 132/63 O2 Sat by Pulse Oximetry 95 O2 Sat by Pulse Oximetry 96 O2 Sat by Pulse Oximetry 96 O2 Sat by Pulse Oximetry 100 O2 Sat by Pulse Oximetry 95 O2 Sat by Pulse Oximetry 100 O2 Sat by Pulse Oximetry 100 Oriented: Normal, Time, Person and Place Eyes: Normal Ear: Normal Nose: Normal Throat: Normal Respiratory: Clear Throughout Cardiovascular: Normal and Other (heart with regular rate and Rhythm. Doppler signals of the left dorsalis pedis and posteriotibila artery are biphasic. I do not hear good flow of the right ankle by Doppler but the right foot is warm. Ecchymosis noted of the right upper thigh. ) : Normal Auscultation: Bowel Sounds: Normal Palpation: Normal Tenderness: Normal Skin: Bruising (Bruising and ecchymosis of the right upper thigh where the thrombolytic catheter was placed. this was present after thrombolysis and has not changed ) Musculoskeletal: Normal Psychiatric: Normal Mood Description: Calm Affect: Normal Speech Pattern: Clear and Appropriate Assessment/Plan (1) Atherosclerosis of standing [place] arteries of extremities with rest pain, right leg: Status: Acute Plan: His right leg now may have thrombosed or he has progression of his already known severe superficial femoral artery disease on the right .Will begin therapeutic Lovenox and obtain CT angiogram (2) Cirrhosis: Status: Acute Plan: stable and being addressed by another physician (3) Atherosclerosis of standing [place] arteries of extremities with rest pain, left leg: Status: Acute Plan: the left leg seems to be doing well after a recent admission and intervention. (4) Carotid stenosis, bilateral: Status: Acute (5) Hyperlipidemia: Status: Acute (6) History of stroke: Status: Acute (7) Gastro-esophageal reflux disease without esophagitis: Status: Acute (8) Chronic ischemic heart disease, unspecified: Status: Acute (9) Essential (primary) hypertension: Status: Acute Review H&P Reviewed: Yes Patient was examined?: Yes
[2023-07-17] MEDS ORDERED: NovoLIN R (or HumuLIN R) SC PRN (13:00)
[2023-07-17] MEDS ORDERED: OMNIPAQUE 350 mg/mL 100 mL BTL 100 ML ONE (13:10)
[2023-07-17] MEDS: CRESTOR TAB 10 MG PO SCH (20:18)
[2023-07-17] MEDS: PERCOCET TAB 5/325 MG PO PRN (20:25)
[2023-07-18 05:29] LABS: BASOPHILS % (AUTO) 0.4 % (0.2-1.0); EOSINOPHILS # (AUTO) 0.1 x10^3/uL (0.0-0.2); EOSINOPHILS % (AUTO) 2.2 % (0.9-2.9); HEMATOCRIT 22.3 % (42.0-54.0); HEMOGLOBIN 7.6 g/dL (13.5-18.0); LYMPHOCYTES # (AUTO) 0.4 X10^3/uL (1.3-2.9); LYMPHOCYTES % (AUTO) 17.2 % (21.0-51.0); MEAN CORPUSCULAR HEMOGLOBIN 30.9 pg (27.0-34.0); MEAN CORPUSCULAR VOLUME 90.6 fL (80.0-100.0); MEAN PLATELET VOLUME 8.7 fL (7.4-11.0); MONOCYTES # (AUTO) 0.3 x10^3/uL (0.3-0.8); MONOCYTES % (AUTO) 10.3 % (0.0-13.0); NEUTROPHILS # (AUTO) 1.8 x10^3/uL (2.2-4.8); NEUTROPHILS % (AUTO) 69.9 % (42.0-75.0); PLATELET COUNT 75 X10^3/uL (150.0-450.0); RED BLOOD COUNT 2.46 X10^6/uL (4.7-6.0); RED CELL DISTRIBUTION WIDTH 14.1 % (11.6-16.5); WHITE BLOOD COUNT 2.5 X10^3/uL (3.6-10.0)
[2023-07-18 05:46] LABS: ALANINE AMINOTRANSFERASE 11 Units/L (12-78); ALBUMIN 2.2 g/dL (3.4-5.0); ALKALINE PHOSPHATASE 49 Units/L (46-116); ASPARTATE AMINO TRANSFERASE 14 Units/L (15-37); BLOOD UREA NITROGEN 8 mg/dL (7-18); CALCIUM 8.5 mg/dL (8.5-10.1); CARBON DIOXIDE 23.9 mmol/L (21-32); CHLORIDE 104 mmol/L (98-107); COR CA(FOR HYPOALB) 9.9 mg/dL (8.5-10.1); COR NA(FOR HYPERGLY) 141 mmol/L (136-145); CREATININE 0.68 mg/dL (0.70-1.30); GLUCOSE 125 mg/dL (65-99); POTASSIUM 3.1 mmol/L (3.5-5.1); SODIUM 140 mmol/L (136-145); TOTAL PROTEIN 5.9 g/dL (6.4-8.2); eGFR NON BLACK RACES > 60 (>60)
[2023-07-18] MEDS ORDERED: CONSULT PHARMACY - POTASSIUM & MAGNESIUM XX SCH (07:00)
--- NOTE | 2023-07-18 09:33 | CT ---
EXAM:CTA chest, abdomen, pelvis and bilateral lower extremity runoff with IV contrastHISTORY:CABG, CVA, CAD, CHF, HTN, HIATAL HERNIA, CIRRHOSIS, DM -COMPARISON:CTA 06/15/2023TECHNIQUE:Multiple axial images of the chest, abdomen, pelvis, and bilateral lower extremities were obtained from the lung bases to the plantar surface of the feet following the administration of IV contrast. 3D reconstructions were performed utilizing radial maximum intensity projection imaging. Dose reduction techniques including Automated Exposure Control (AEC) and adjustment of mA and kV were utilized.FINDINGS:Images through the chest reveal moderate COPD. There are small bilateral pleural effusions. Heart is normal in size. There is a left lower lobe lung nodule measuring 4.0 mm. Small reactive mediastinal lymph nodes are seen. No large proximal pulmonary embolus is seen.Persistent changes of cirrhosis and splenomegaly are seen. Normal variant diminished enhancement is seen in the bare area of the liver. Gallbladder, pancreas, and adrenal glands appear normal.There is an atrophic left kidney which has slight delay in enhancement compared to the right kidney. There is bilateral nephrolithiasis without evidence of hydronephrosis. Normal appendix is seen. A small amount of air is seen in the urinary bladder. No bladder wall thickening is seen.Abdominal aorta: Abdominal aorta is normal in size with diffuse atherosclerotic calcifications. Mild stenoses are suspected in the SMA and celiac axis. There is likely high-grade stenosis in the origin of the left renal artery. Likely moderate stenosis is seen in the origin of the right renal artery. Probable hemodynamically significant stenoses are seen in the JEWEL.Common iliac arteries: Bilateral common iliac artery stents are present with likely normal enhancement. Mild stenoses are suspected in the stents.External iliac arteries: Stents are seen in the external iliac arteries. Mild stenoses are seen within the stents.Right lower extremity: High-grade stenoses are seen throughout the right common femoral artery and appear greater than on prior study. Subtotal occlusion is seen in the origin of the right femoral artery, greater than prior study. Other high-grade stenoses are seen in the proximal right SFA, worsened since prior study. These likely cause subtotal stenosis. Evaluation of the proximal 2/3 of the right SFA is limited due to its small size. Other subtotal stenoses are seen in the middle and distal thirds of the right SFA, increased from prior study.In the mid right popliteal artery there is high-grade stenosis in the 70-80% range, similar to prior study. Subtotal stenosis is seen in the tibioperoneal trunk, worsened from prior study. High-grade stenoses are seen in the anterior tibial artery. Only the posterior tibial artery is seen enhancing at the ankle but no delayed imaging is performed.Left lower extremity: Less than 50% stenoses are seen in the left TUGBOAT ENGINEER. There is a stent in the origin of the left SFA which extends into the left popliteal artery. No significant stenosis is seen in this region. Mild stenosis is seen in the left popliteal artery and mild stenoses are suspected in the tibioperoneal trunk. More prominent stenoses are seen in the left HUGO, unchanged. Left HUGO and THREAD CLIPPER are seen enhancing near the left ankle.IMPRESSION:Worsening stenoses are seen in the right lower extremity runoff from the right TUGBOAT ENGINEER into the calf arteries. Many of these stenoses appear to cause subtotal occlusion.Stenoses in the left lower extremity appear similar to prior study.High-grade stenosis is seen in the left renal artery which has delayed enhancement and is smaller in size than the right renal artery.There is a 4.0 mm left lower lobe lung nodule. Suggest follow-up chest CT in 1 year's time for this nodule.THIS IS AN ELECTRONICALLY VERIFIED FINAL REPORT07/18/2023 9:29 AM - Electronically signed by Robin Pate MD
[2023-07-18] MEDS: K-DUR TAB 20 MEQ PO ONE (09:37)
[2023-07-18] MEDS: NORVASC TAB 5 MG PO SCH (09:38)
[2023-07-18] MEDS: CITROMA PO ONE (09:46)
[2023-07-18] MEDS: LR 1,000 ML IV 1,000 ML with MAGNESIUM SULFATE 50% INJ VIAL 2 G IV SCH (10:51)
[2023-07-18] MEDS: PERCOCET TAB 5/325 MG PO PRN (14:57)
[2023-07-18] MEDS: ZOFRAN INJ 4 MG VIAL IVP PRN (20:48)
[2023-07-18] MEDS: MIRALAX POWDER (1 DOSE 17 G) PO SCH (20:50)
[2023-07-19] MEDS: HIBICLENS WASH EXT PRN (06:21)
--- NOTE | 2023-07-19 07:40 | NOTE.SOAP ---
Manny Note Note for Day of Date of Exam: 07/18/23 Subjective Data Subjective Data: This patient with recent thrombolysis of thrombosis of the left superficial femoral artery stents and subsequent balloon angioplasty of these stents with stenting of both common iliac arteries and the left external iliac artery. He was discharged home .He presented back with increasing pain at the right leg. he is known to have significant areas of stenosis of the right superficial femoral artery and we were planning intervention of that in the future. repeat CT angiogram showed progression of disease on the right side but no obvious thrombosis .The left side was clear . He has been on therapeutic Lovenox Objective Data Temperature: 98.1 F Pulse Rate: 63 Respiratory Rate: 17 Blood Pressure: 135/64 Objective Data: Left leg warm with good doppler signals distally . Right leg is cool but moves everything well Assessment Assessment: recent intervention of left leg still doing well . severe stenosis of areas of the right superficial of the artery Plan Plan: arterial intervention of the right leg on July 18 .
[2023-07-19] MEDS: NOZIN NASAL SANITIZER TP ONE (07:45)
[2023-07-19 09:20] LABS: BASOPHILS % (AUTO) 0.5 % (0.2-1.0); EOSINOPHILS % (AUTO) 2.1 % (0.9-2.9); HEMATOCRIT 21.8 % (42.0-54.0); HEMOGLOBIN 7.4 g/dL (13.5-18.0); LYMPHOCYTES # (AUTO) 0.4 X10^3/uL (1.3-2.9); MEAN CORPUSCULAR HEMOGLOBIN 31.2 pg (27.0-34.0); MEAN CORPUSCULAR HGB CONC 33.9 g/dL (33.0-35.0); MONOCYTES # (AUTO) 0.2 x10^3/uL (0.3-0.8); MONOCYTES % (AUTO) 9.9 % (0.0-13.0); NEUTROPHILS # (AUTO) 1.5 x10^3/uL (2.2-4.8); NEUTROPHILS % (AUTO) 67.5 % (42.0-75.0); PLATELET COUNT 74 X10^3/uL (150.0-450.0); RED BLOOD COUNT 2.37 X10^6/uL (4.7-6.0); RED CELL DISTRIBUTION WIDTH 14.8 % (11.6-16.5); WHITE BLOOD COUNT 2.2 X10^3/uL (3.6-10.0)
[2023-07-19 10:06] LABS: PLATELET MORPHOLOGY COMMENT NORMAL (NORMAL)
[2023-07-19 12:04] LABS: ALANINE AMINOTRANSFERASE 13 Units/L (12-78); ALKALINE PHOSPHATASE 64 Units/L (46-116); ASPARTATE AMINO TRANSFERASE 16 Units/L (15-37); BLOOD UREA NITROGEN 7 mg/dL (7-18); CHLORIDE 103 mmol/L (98-107); COR CA(FOR HYPOALB) 9.8 mg/dL (8.5-10.1); COR NA(FOR HYPERGLY) 139 mmol/L (136-145); GLUCOSE 113 mg/dL (65-99); POTASSIUM 3.6 mmol/L (3.5-5.1); SODIUM 139 mmol/L (136-145); TOTAL PROTEIN 7.2 g/dL (6.4-8.2); eGFR NON BLACK RACES > 60 (>60)
[2023-07-19] MEDS: K-DUR TAB 20 MEQ PO NR (14:00)
[2023-07-19] MEDS: NS 1,000 ML IV 1,000 ML ONE ×2 (14:09→15:07)
[2023-07-19] MEDS: FENTANYL VIAL INJ 100 mcg ONE (14:28)
[2023-07-19] MEDS ORDERED: PRECEDEX INJ VIAL ONE (14:28)
[2023-07-19] MEDS: NS 100 ML IV 100 ML ONE (14:28)
[2023-07-19] MEDS: ANCEF VIAL 1 GRAM ONE (14:28)
[2023-07-19] MEDS: VERSED ONE (14:28)
[2023-07-19] MEDS: DIPRIVAN VIAL 20 ML ONE ×3 (14:28→15:23)
[2023-07-19] MEDS: ROBINUL ONE (14:50)
[2023-07-19] MEDS: VISIPAQUE 50 ML ONE (14:53)
[2023-07-19] MEDS: MARCAINE 0.5% ONE (14:53)
[2023-07-19] MEDS: VISIPAQUE 100 ML ONE (14:53)
[2023-07-19] MEDS: HEPARIN SODIUM IN D5W 75,000 UNITS/1,500 ML BAG ONE (14:53)
[2023-07-19] MEDS: HEPARIN SODIUM INJ 5000 UNITS ONE (14:56)
--- NOTE | 2023-07-19 16:26 | OR.IMMED ---
IMMEDIATE POST-OP NOTE Immediate Post-Op Note Date of surgery/procedure: 07/19/23 Pre-Op Diagnosis: critical ischemia right leg Post-Op Diagnosis: same Procedure: diagnostic arteriogram, diagnostic aortogram, atherectomy and drug coated balloon angioplasty to the right SFA from adductor canal to lesser trochanter. Will need endarterectomy and patch angioplasty to treat dissection of common femoral artery near takeoff of the right profunda artery Description of Procedure: see dictation Surgeon/Managing Partner: Gena Estimated Blood Loss: < 50 cc Complications: none Progress Notes: Return to CCU , plan exploration right common femoral artery with probable patch angioplasty with hybrid balloon angioplasty of stenting right SFA
[2023-07-19] MEDS ORDERED: LOVENOX INJ 80 MG SYR SC SCH (17:00)
[2023-07-19] MEDS: MORPHINE SULFATE INJ 2 MG INJ IVP PRN (19:05)
[2023-07-19] MEDS ORDERED: HIBICLENS WASH ONE (22:59)
[2023-07-20 05:31] LABS: BASOPHILS % (AUTO) 0.5 % (0.2-1.0); EOSINOPHILS # (AUTO) 0.1 x10^3/uL (0.0-0.2); EOSINOPHILS % (AUTO) 3.1 % (0.9-2.9); HEMATOCRIT 24.1 % (42.0-54.0); HEMOGLOBIN 8.3 g/dL (13.5-18.0); LYMPHOCYTES # (AUTO) 0.4 X10^3/uL (1.3-2.9); LYMPHOCYTES % (AUTO) 12.3 % (21.0-51.0); MEAN CORPUSCULAR HEMOGLOBIN 31.7 pg (27.0-34.0); MEAN CORPUSCULAR HGB CONC 34.2 g/dL (33.0-35.0); MEAN CORPUSCULAR VOLUME 92.6 fL (80.0-100.0); MEAN PLATELET VOLUME 8.1 fL (7.4-11.0); MONOCYTES # (AUTO) 0.3 x10^3/uL (0.3-0.8); MONOCYTES % (AUTO) 9.5 % (0.0-13.0); NEUTROPHILS # (AUTO) 2.6 x10^3/uL (2.2-4.8); NEUTROPHILS % (AUTO) 74.6 % (42.0-75.0); PLATELET COUNT 91 X10^3/uL (150.0-450.0); RED BLOOD COUNT 2.61 X10^6/uL (4.7-6.0); RED CELL DISTRIBUTION WIDTH 15.5 % (11.6-16.5); WHITE BLOOD COUNT 3.5 X10^3/uL (3.6-10.0)
[2023-07-20 05:41] LABS: ALANINE AMINOTRANSFERASE 10 Units/L (12-78); ALBUMIN 2.4 g/dL (3.4-5.0); ALKALINE PHOSPHATASE 63 Units/L (46-116); ASPARTATE AMINO TRANSFERASE 18 Units/L (15-37); BLOOD UREA NITROGEN 7 mg/dL (7-18); CALCIUM 8.3 mg/dL (8.5-10.1); CHLORIDE 105 mmol/L (98-107); COR CA(FOR HYPOALB) 9.6 mg/dL (8.5-10.1); COR NA(FOR HYPERGLY) 140 mmol/L (136-145); CREATININE 0.81 mg/dL (0.70-1.30); GLUCOSE 123 mg/dL (65-99); MAGNESIUM 2.1 mg/dL (2.0-2.9); POTASSIUM 3.6 mmol/L (3.5-5.1); SODIUM 139 mmol/L (136-145); eGFR NON BLACK RACES > 60 (>60)
[2023-07-20] MEDS: CONSULT PHARMACY - POTASSIUM & MAGNESIUM XX SCH (08:15)
[2023-07-20] MEDS: FARXIGA PO SCH (09:05)
--- NOTE | 2023-07-20 15:26 | NOTE.SOAP ---
Soap Note Note for Day of Date of Exam: 07/20/23 Subjective Data Subjective Data: After intervention right ,leg with approach from the right posterior tibial artery , had atherectomy and drug coated balloon angioplasty of right SFA. Probably dissection in area of right common femoral artery at takeoff of the right profunda artery. Objective Data Pulse Rate: 61 Respiratory Rate: 15 Blood Pressure: 130/61 O2 Sat by Pulse Oximetry: 99 Objective Data: Hgb=8.3, Cr=0.83 Left foot warm,, all rest pain of left resolved, Right foot cool Assessment Assessment: Dissection right femoral artery Plan Plan: Hybrid procedure of right femroral endarterectomy, resolution of dissection , patch angioplasty and possible arteriogra/ steentin right SFA
[2023-07-20] MEDS: COLACE CAP 100 MG PO SCH (20:09)
[2023-07-21] MEDS: HIBICLENS WASH EXT ONE (05:24)
[2023-07-21 05:28] LABS: BASOPHILS % (AUTO) 0.6 % (0.2-1.0); EOSINOPHILS # (AUTO) 0.1 x10^3/uL (0.0-0.2); EOSINOPHILS % (AUTO) 2.4 % (0.9-2.9); HEMATOCRIT 22.5 % (42.0-54.0); HEMOGLOBIN 7.6 g/dL (13.5-18.0); LYMPHOCYTES # (AUTO) 0.4 X10^3/uL (1.3-2.9); LYMPHOCYTES % (AUTO) 18.5 % (21.0-51.0); MEAN CORPUSCULAR HEMOGLOBIN 31.3 pg (27.0-34.0); MEAN CORPUSCULAR HGB CONC 33.9 g/dL (33.0-35.0); MEAN CORPUSCULAR VOLUME 92.2 fL (80.0-100.0); MEAN PLATELET VOLUME 8.7 fL (7.4-11.0); MONOCYTES # (AUTO) 0.3 x10^3/uL (0.3-0.8); MONOCYTES % (AUTO) 10.4 % (0.0-13.0); NEUTROPHILS # (AUTO) 1.6 x10^3/uL (2.2-4.8); NEUTROPHILS % (AUTO) 68.1 % (42.0-75.0); PLATELET COUNT 75 X10^3/uL (150.0-450.0); RED BLOOD COUNT 2.44 X10^6/uL (4.7-6.0); RED CELL DISTRIBUTION WIDTH 15.3 % (11.6-16.5); WHITE BLOOD COUNT 2.4 X10^3/uL (3.6-10.0)
[2023-07-21 05:41] LABS: ALANINE AMINOTRANSFERASE 11 Units/L (12-78); ALBUMIN 2.5 g/dL (3.4-5.0); ALKALINE PHOSPHATASE 64 Units/L (46-116); ASPARTATE AMINO TRANSFERASE 16 Units/L (15-37); BLOOD UREA NITROGEN 6 mg/dL (7-18); CALCIUM 8.6 mg/dL (8.5-10.1); CHLORIDE 106 mmol/L (98-107); COR CA(FOR HYPOALB) 9.8 mg/dL (8.5-10.1); COR NA(FOR HYPERGLY) 141 mmol/L (136-145); CREATININE 0.69 mg/dL (0.70-1.30); GLUCOSE 127 mg/dL (65-99); POTASSIUM 4.1 mmol/L (3.5-5.1); SODIUM 140 mmol/L (136-145); TOTAL PROTEIN 6.1 g/dL (6.4-8.2); eGFR NON BLACK RACES > 60 (>60)
[2023-07-21 05:53] LABS: PLATELET MORPHOLOGY COMMENT NORMAL (NORMAL)
[2023-07-21] MEDS: NOZIN NASAL SANITIZER TP ONE (06:54)
[2023-07-21] MEDS: NS 1,000 ML IV 1,000 ML ONE (07:20)
[2023-07-21] MEDS: PRECEDEX INJ VIAL ONE (07:54)
[2023-07-21] MEDS: NS 100 ML IV 100 ML ONE (07:54)
[2023-07-21] MEDS ORDERED: ULTANE GAS IN ONE (07:54)
[2023-07-21] MEDS: ANCEF VIAL 1 GRAM ONE (07:54)
[2023-07-21] MEDS: AMIDATE INJ 40 MG VIAL ONE (07:54)
[2023-07-21] MEDS: ROBINUL ONE (07:54)
[2023-07-21] MEDS: NEO-SYNEPHRINE INJ ONE (07:54)
[2023-07-21] MEDS: ZEMURON 100 MG VIAL ONE (07:54)
[2023-07-21] MEDS: FENTANYL VIAL INJ 250 mcg ONE (08:05)
[2023-07-21] MEDS: HEPARIN SODIUM IN D5W 75,000 UNITS/1,500 ML BAG ONE (08:22)
[2023-07-21] MEDS: NS 500 ML IV 500 ML IV ONE ×3 (09:30→11:57)
[2023-07-21] MEDS: HEPARIN SODIUM INJ 5000 UNITS ONE ×2 (09:40→10:40)
[2023-07-21] MEDS: VISIPAQUE 100 ML ONE (11:01)
[2023-07-21] MEDS: FENTANYL VIAL INJ 100 mcg ONE (11:12)
[2023-07-21] MEDS: PROTAMINE SULFATE 50 MG VIAL ONE (11:55)
[2023-07-21] MEDS ORDERED: REGLAN INJ 10 MG VIAL IVP PRN (12:17)
[2023-07-21] MEDS ORDERED: BENADRYL INJ 50 MG VIAL IVP PRN (12:17)
[2023-07-21] MEDS ORDERED: BARHEMSYS INJ IVP PRN (12:17)
[2023-07-21] MEDS ORDERED: ZOFRAN INJ 4 MG VIAL IVP PRN (12:17)
--- NOTE | 2023-07-21 12:17 | OR.IMMED ---
IMMEDIATE POST-OP NOTE Immediate Post-Op Note Date of surgery/procedure: 07/21/23 Pre-Op Diagnosis: critical ischemia right leg Post-Op Diagnosis: same Procedure: right common femoral endarterectomy, balloon angioplasty of right distal external iliac stent, drug coated stenting of the entire right SFA. Description of Procedure: see dictation Surgeon/Plant Etiologist: Gena Findings: dissection / occlusion right common femoral artery, severe plaque disease , severe disease entire right SFA Specimens Removed: plaque Estimated Blood Loss: 400 cc Complications: none Progress Notes: Return to ICU
[2023-07-21] MEDS: DILAUDID INJ IVP PRN (12:18)
[2023-07-21] MEDS: MARCAINE 0.5% ONE (13:23)
[2023-07-21] MEDS: DILAUDID INJ ONE (13:26)
--- NOTE | 2023-07-21 14:12 | RAD ---
EXAM:PELVISHISTORY:POST OP/ NEEDLE COUNT INCORRECT;COMPARISON:NoneFINDINGS:The pelvic ring appears intact. The SI joints are symmetric. The visualized portions of the right and left hip are intact. No significant soft tissue abnormality. Evidence of mesh repair overlying the lower pelvis. Scattered vascular stents. Right-sided surgical skip. Residual contrast in the bladder lumen.IMPRESSION:No evidence of retained foreign body overlying the lower pelvis.THIS IS AN ELECTRONICALLY VERIFIED FINAL REPORT07/21/2023 2:09 PM - Electronically signed by Quinton Keane MD
[2023-07-21 15:02] LABS: BASOPHILS % (AUTO) 0.7 % (0.2-1.0); EOSINOPHILS # (AUTO) 0.1 x10^3/uL (0.0-0.2); EOSINOPHILS % (AUTO) 2.6 % (0.9-2.9); HEMATOCRIT 28.5 % (42.0-54.0); HEMOGLOBIN 9.4 g/dL (13.5-18.0); LYMPHOCYTES # (AUTO) 0.5 X10^3/uL (1.3-2.9); LYMPHOCYTES % (AUTO) 9.8 % (21.0-51.0); MEAN CORPUSCULAR HEMOGLOBIN 30.2 pg (27.0-34.0); MEAN CORPUSCULAR VOLUME 91.5 fL (80.0-100.0); MEAN PLATELET VOLUME 7.6 fL (7.4-11.0); MONOCYTES # (AUTO) 0.4 x10^3/uL (0.3-0.8); MONOCYTES % (AUTO) 7.5 % (0.0-13.0); NEUTROPHILS # (AUTO) 3.9 x10^3/uL (2.2-4.8); NEUTROPHILS % (AUTO) 79.4 % (42.0-75.0); PLATELET COUNT 100 X10^3/uL (150.0-450.0); RED BLOOD COUNT 3.12 X10^6/uL (4.7-6.0); RED CELL DISTRIBUTION WIDTH 18.7 % (11.6-16.5); WHITE BLOOD COUNT 4.9 X10^3/uL (3.6-10.0)
[2023-07-22 05:06] LABS: BASOPHILS % (AUTO) 0.3 % (0.2-1.0); EOSINOPHILS % (AUTO) 0.5 % (0.9-2.9); HEMATOCRIT 28.6 % (42.0-54.0); HEMOGLOBIN 9.4 g/dL (13.5-18.0); LYMPHOCYTES # (AUTO) 0.3 X10^3/uL (1.3-2.9); MEAN CORPUSCULAR HEMOGLOBIN 30.1 pg (27.0-34.0); MEAN CORPUSCULAR HGB CONC 32.9 g/dL (33.0-35.0); MEAN CORPUSCULAR VOLUME 91.7 fL (80.0-100.0); MEAN PLATELET VOLUME 7.6 fL (7.4-11.0); MONOCYTES # (AUTO) 0.8 x10^3/uL (0.3-0.8); MONOCYTES % (AUTO) 9.5 % (0.0-13.0); NEUTROPHILS # (AUTO) 7.2 x10^3/uL (2.2-4.8); NEUTROPHILS % (AUTO) 85.7 % (42.0-75.0); PLATELET COUNT 113 X10^3/uL (150.0-450.0); RED BLOOD COUNT 3.12 X10^6/uL (4.7-6.0); RED CELL DISTRIBUTION WIDTH 19.5 % (11.6-16.5); WHITE BLOOD COUNT 8.4 X10^3/uL (3.6-10.0)
[2023-07-22 05:21] LABS: BLOOD UREA NITROGEN 6 mg/dL (7-18); CALCIUM 7.9 mg/dL (8.5-10.1); CHLORIDE 105 mmol/L (98-107); COR NA(FOR HYPERGLY) 140 mmol/L (136-145); CREATININE 0.82 mg/dL (0.70-1.30); GLUCOSE 139 mg/dL (65-99); POTASSIUM 4.8 mmol/L (3.5-5.1); SODIUM 139 mmol/L (136-145); eGFR NON BLACK RACES > 60 (>60)
[2023-07-22 05:27] LABS: CARBON DIOXIDE 14.3 mmol/L (21-32)
[2023-07-22] MEDS ORDERED: ULTRAM PO PRN (08:07)
[2023-07-22] MEDS: PEPCID 20 MG VIAL 20 MG in NS 50 ML IV 50 ML IV SCH (09:14)
[2023-07-22 09:17] VITALS: RESP 20
[2023-07-22 09:43] VITALS: TEMP 98
[2023-07-22 12:47] VITALS: BP 123/58; PULSE 92; O2SAT 98
--- NOTE | 2023-07-22 18:11 | W.DIS.FURT ---
Summary of Discharge Discharge Summary of Date Date of Exam: 07/22/23 Admission Date Date of Admission: 07/17/23 Admission Diagnosis Hospital Course: 67 yo male with critical right leg ischemia . Admitted Underwent revascularization right leg. See operaetive summaries for detail. Discharge, f/u 1 week Vital Signs: Vital Signs (72 hours) 07/20/23 15:26 07/19/23 18:09 07/19/23 18:20 Temperature Pulse Rate 61 Pulse Rate [Apical] 73 Respiratory Rate 15 25 H 20 Blood Pressure 130/61 Blood Pressure [Right Arm] 134/64 O2 Sat by Pulse Oximetry 99 94 L Oxygen Delivery Method Room Air Oxygen Flow Rate FIO2% 07/19/23 19:05 07/19/23 21:15 07/19/23 19:35 Temperature Pulse Rate Pulse Rate [Apical] Respiratory Rate 20 20 20 Blood Pressure Blood Pressure [Right Arm] O2 Sat by Pulse Oximetry Oxygen Delivery Method Oxygen Flow Rate FIO2% 07/19/23 21:45 07/19/23 19:00 07/19/23 19:00 Temperature 98 F Pulse Rate 66 Pulse Rate [Apical] Respiratory Rate 20 31 H Blood Pressure 141/63 Blood Pressure [Right Arm] O2 Sat by Pulse Oximetry Oxygen Delivery Method Room Air Oxygen Flow Rate FIO2% 07/19/23 20:00 07/19/23 21:00 07/19/23 19:16 Temperature 98 F Pulse Rate 61 62 Pulse Rate [Apical] 66 Respiratory Rate 16 16 31 H Blood Pressure 117/58 125/83 Blood Pressure [Right Arm] 141/63 O2 Sat by Pulse Oximetry 100 Oxygen Delivery Method Room Air Oxygen Flow Rate FIO2% 07/19/23 20:16 07/19/23 21:16 07/19/23 22:00 Temperature Pulse Rate Pulse Rate [Apical] 61 62 63 Respiratory Rate 16 16 17 Blood Pressure Blood Pressure [Right Arm] 117/58 125/83 155/65 O2 Sat by Pulse Oximetry 100 100 100 Oxygen Delivery Method Room Air Room Air Room Air Oxygen Flow Rate FIO2% 07/19/23 22:00 07/19/23 23:34 07/20/23 00:34 Temperature Pulse Rate 63 Pulse Rate [Apical] Respiratory Rate 17 29 H 25 H Blood Pressure 155/65 Blood Pressure [Right Arm] O2 Sat by Pulse Oximetry Oxygen Delivery Method Oxygen Flow Rate FIO2% 07/19/23 23:00 07/20/23 00:00 07/20/23 01:00 Temperature 98.1 F Pulse Rate Pulse Rate [Apical] 65 61 61 Respiratory Rate 19 16 18 Blood Pressure Blood Pressure [Right Arm] 148/65 110/54 136/62 O2 Sat by Pulse Oximetry 100 97 98 Oxygen Delivery Method Room Air Room Air Room Air Oxygen Flow Rate FIO2% 07/19/23 23:00 07/20/23 00:00 07/20/23 01:00 Temperature 98.1 F Pulse Rate 65 61 61 Pulse Rate [Apical] Respiratory Rate 19 16 18 Blood Pressure 148/65 110/54 136/62 Blood Pressure [Right Arm] O2 Sat by Pulse Oximetry Oxygen Delivery Method Oxygen Flow Rate FIO2% 07/20/23 03:03 07/20/23 02:00 07/20/23 03:00 Temperature Pulse Rate 60 64 Pulse Rate [Apical] Respiratory Rate 19 18 18 Blood Pressure 125/60 142/64 Blood Pressure [Right Arm] O2 Sat by Pulse Oximetry Oxygen Delivery Method Oxygen Flow Rate FIO2% 07/20/23 04:00 07/20/23 05:00 07/20/23 02:00 Temperature 98.4 F Pulse Rate 62 64 Pulse Rate [Apical] 60 Respiratory Rate 16 21 18 Blood Pressure 115/56 140/61 Blood Pressure [Right Arm] 125/60 O2 Sat by Pulse Oximetry 98 Oxygen Delivery Method Room Air Oxygen Flow Rate FIO2% 07/20/23 03:00 07/20/23 04:00 07/20/23 05:00 Temperature 98.0 F Pulse Rate Pulse Rate [Apical] 64 62 64 Respiratory Rate 18 16 21 Blood Pressure Blood Pressure [Right Arm] 142/64 115/56 140/61 O2 Sat by Pulse Oximetry 98 99 100 Oxygen Delivery Method Room Air Room Air Room Air Oxygen Flow Rate FIO2% 07/20/23 03:33 07/20/23 06:21 07/19/23 20:10 Temperature Pulse Rate Pulse Rate [Apical] Respiratory Rate 20 15 Blood Pressure Blood Pressure [Right Arm] O2 Sat by Pulse Oximetry Oxygen Delivery Method Room Air Oxygen Flow Rate FIO2% 21 07/20/23 06:00 07/20/23 06:00 07/20/23 06:51 Temperature Pulse Rate 59 L Pulse Rate [Apical] 59 L Respiratory Rate 15 15 16 Blood Pressure 154/64 Blood Pressure [Right Arm] 154/64 O2 Sat by Pulse Oximetry 100 Oxygen Delivery Method Room Air Oxygen Flow Rate FIO2% 07/20/23 08:06 07/20/23 09:01 07/20/23 09:05 Temperature Pulse Rate 65 Pulse Rate [Apical] Respiratory Rate 21 16 Blood Pressure Blood Pressure [Right Arm] O2 Sat by Pulse Oximetry 100 Oxygen Delivery Method Nasal Cannula Oxygen Flow Rate 3 FIO2% 32 07/20/23 07:00 07/20/23 08:47 07/20/23 08:47 Temperature Pulse Rate 70 Pulse Rate [Apical] Respiratory Rate 23 Blood Pressure 161/70 Blood Pressure [Right Arm] O2 Sat by Pulse Oximetry 100 Oxygen Delivery Method Room Air Oxygen Flow Rate FIO2% 07/20/23 09:00 07/20/23 09:20 07/20/23 09:20 Temperature 97.9 F Pulse Rate 69 73 Pulse Rate [Apical] Respiratory Rate 26 H 22 Blood Pressure 181/75 Blood Pressure [Right Arm] O2 Sat by Pulse Oximetry 86 L 98 Oxygen Delivery Method Oxygen Flow Rate FIO2% 07/20/23 10:00 07/20/23 10:01 07/20/23 10:01 Temperature Pulse Rate 62 61 Pulse Rate [Apical] Respiratory Rate 16 17 Blood Pressure 123/60 Blood Pressure [Right Arm] O2 Sat by Pulse Oximetry 92 L 96 Oxygen Delivery Method Oxygen Flow Rate FIO2% 07/20/23 10:01 07/20/23 10:05 07/20/23 12:02 Temperature Pulse Rate Pulse Rate [Apical] Respiratory Rate 16 16 Blood Pressure 123/60 Blood Pressure [Right Arm] O2 Sat by Pulse Oximetry Oxygen Delivery Method Oxygen Flow Rate FIO2% 07/20/23 10:01 07/20/23 11:00 07/20/23 11:00 Temperature Pulse Rate 61 Pulse Rate [Apical] Respiratory Rate 15 Blood Pressure 123/60 154/67 Blood Pressure [Right Arm] O2 Sat by Pulse Oximetry 88 L Oxygen Delivery Method Oxygen Flow Rate FIO2% 07/20/23 12:00 07/20/23 12:00 07/20/23 12:32 Temperature Pulse Rate 62 Pulse Rate [Apical] Respiratory Rate 13 16 Blood Pressure 130/61 Blood Pressure [Right Arm] O2 Sat by Pulse Oximetry 99 Oxygen Delivery Method Oxygen Flow Rate FIO2% 07/20/23 13:00 07/20/23 13:00 07/20/23 14:00 Temperature Pulse Rate 67 Pulse Rate [Apical] Respiratory Rate 27 H Blood Pressure 144/67 129/60 Blood Pressure [Right Arm] O2 Sat by Pulse Oximetry 98 Oxygen Delivery Method Oxygen Flow Rate FIO2% 07/20/23 14:00 07/20/23 15:00 07/20/23 15:00 Temperature Pulse Rate 64 63 Pulse Rate [Apical] Respiratory Rate 13 11 L Blood Pressure 134/62 Blood Pressure [Right Arm] O2 Sat by Pulse Oximetry 97 99 Oxygen Delivery Method Oxygen Flow Rate FIO2% 07/20/23 16:00 07/20/23 16:00 07/20/23 17:00 Temperature Pulse Rate 68 64 Pulse Rate [Apical] Respiratory Rate 31 H 14 Blood Pressure 143/63 Blood Pressure [Right Arm] O2 Sat by Pulse Oximetry 99 98 Oxygen Delivery Method Oxygen Flow Rate FIO2% 07/20/23 17:00 07/20/23 15:13 07/20/23 18:08 Temperature Pulse Rate Pulse Rate [Apical] Respiratory Rate 14 20 Blood Pressure 148/67 Blood Pressure [Right Arm] O2 Sat by Pulse Oximetry Oxygen Delivery Method Oxygen Flow Rate FIO2% 07/20/23 16:13 07/20/23 18:38 07/20/23 18:00 Temperature Pulse Rate Pulse Rate [Apical] Respiratory Rate 20 20 Blood Pressure 144/65 Blood Pressure [Right Arm] O2 Sat by Pulse Oximetry Oxygen Delivery Method Oxygen Flow Rate FIO2% 07/20/23 18:00 07/20/23 19:00 07/20/23 19:00 Temperature Pulse Rate 71 69 Pulse Rate [Apical] Respiratory Rate 23 20 Blood Pressure 127/60 Blood Pressure [Right Arm] O2 Sat by Pulse Oximetry 97 96 Oxygen Delivery Method Room Air Oxygen Flow Rate FIO2% 07/20/23 20:00 07/20/23 21:14 07/20/23 21:00 Temperature 98.5 F Pulse Rate 68 72 Pulse Rate [Apical] Respiratory Rate 15 20 24 Blood Pressure 158/67 170/70 Blood Pressure [Right Arm] O2 Sat by Pulse Oximetry 97 95 Oxygen Delivery Method Oxygen Flow Rate FIO2% 07/20/23 22:00 07/20/23 22:14 07/20/23 23:00 Temperature Pulse Rate 69 67 Pulse Rate [Apical] Respiratory Rate 15 20 24 Blood Pressure 152/81 156/69 Blood Pressure [Right Arm] O2 Sat by Pulse Oximetry 98 96 Oxygen Delivery Method Oxygen Flow Rate FIO2% 07/20/23 23:39 07/21/23 00:09 07/21/23 00:00 Temperature 97.9 F Pulse Rate 67 Pulse Rate [Apical] Respiratory Rate 24 22 19 Blood Pressure 142/64 Blood Pressure [Right Arm] O2 Sat by Pulse Oximetry 95 Oxygen Delivery Method Oxygen Flow Rate FIO2% 07/21/23 01:00 07/21/23 02:00 07/21/23 03:00 Temperature Pulse Rate 67 66 64 Pulse Rate [Apical] Respiratory Rate 17 24 18 Blood Pressure 154/69 148/67 150/67 Blood Pressure [Right Arm] O2 Sat by Pulse Oximetry 94 L 95 94 L Oxygen Delivery Method Oxygen Flow Rate FIO2% 07/21/23 04:00 07/21/23 04:54 07/21/23 05:23 Temperature 98.4 F Pulse Rate 74 Pulse Rate [Apical] Respiratory Rate 21 24 24 Blood Pressure 159/69 Blood Pressure [Right Arm] O2 Sat by Pulse Oximetry 100 Oxygen Delivery Method Oxygen Flow Rate FIO2% 07/21/23 05:00 07/21/23 06:00 07/21/23 07:26 Temperature Pulse Rate 70 70 73 Pulse Rate [Apical] Respiratory Rate 15 11 L 16 Blood Pressure 152/67 147/65 160/71 Blood Pressure [Right Arm] O2 Sat by Pulse Oximetry 98 98 97 Oxygen Delivery Method Room Air Oxygen Flow Rate FIO2% 07/21/23 07:00 07/21/23 07:01 07/21/23 07:01 Temperature Pulse Rate 70 70 Pulse Rate [Apical] Respiratory Rate 25 H 14 Blood Pressure 165/71 Blood Pressure [Right Arm] O2 Sat by Pulse Oximetry 99 98 Oxygen Delivery Method Oxygen Flow Rate FIO2% 07/21/23 07:01 07/21/23 07:01 07/21/23 07:00 Temperature Pulse Rate Pulse Rate [Apical] Respiratory Rate Blood Pressure 165/71 165/71 Blood Pressure [Right Arm] O2 Sat by Pulse Oximetry Oxygen Delivery Method Room Air Oxygen Flow Rate FIO2% 07/21/23 12:18 07/21/23 12:23 07/21/23 12:28 Temperature Pulse Rate Pulse Rate [Apical] Respiratory Rate 18 18 18 Blood Pressure Blood Pressure [Right Arm] O2 Sat by Pulse Oximetry Oxygen Delivery Method Oxygen Flow Rate FIO2% 07/21/23 12:13 07/21/23 12:18 07/21/23 12:23 Temperature Pulse Rate 93 H 91 H 90 Pulse Rate [Apical] Respiratory Rate 16 17 17 Blood Pressure 167/64 155/72 155/70 Blood Pressure [Right Arm] O2 Sat by Pulse Oximetry 100 99 99 Oxygen Delivery Method Aerosol Face Tent Aerosol Face Tent Aerosol Face Tent Oxygen Flow Rate FIO2% 07/21/23 12:28 07/21/23 12:33 07/21/23 12:38 Temperature Pulse Rate 86 86 80 Pulse Rate [Apical] Respiratory Rate 17 17 17 Blood Pressure 158/70 148/67 140/62 Blood Pressure [Right Arm] O2 Sat by Pulse Oximetry 99 97 96 Oxygen Delivery Method Nasal Cannula Nasal Cannula Nasal Cannula Oxygen Flow Rate FIO2% 07/21/23 12:43 07/21/23 12:48 07/21/23 12:33 Temperature Pulse Rate 78 80 Pulse Rate [Apical] Respiratory Rate 18 18 18 Blood Pressure 138/64 134/64 Blood Pressure [Right Arm] O2 Sat by Pulse Oximetry 96 98 Oxygen Delivery Method Nasal Cannula Nasal Cannula Oxygen Flow Rate FIO2% 07/21/23 13:03 07/21/23 13:00 07/21/23 13:31 Temperature Pulse Rate 80 Pulse Rate [Apical] Respiratory Rate 18 18 16 Blood Pressure 134/64 Blood Pressure [Right Arm] O2 Sat by Pulse Oximetry 98 Oxygen Delivery Method Nasal Cannula Oxygen Flow Rate FIO2% 07/21/23 13:07 07/21/23 13:08 07/21/23 13:15 Temperature Pulse Rate 80 Pulse Rate [Apical] Respiratory Rate Blood Pressure 145/63 147/67 Blood Pressure [Right Arm] O2 Sat by Pulse Oximetry Oxygen Delivery Method Oxygen Flow Rate FIO2% 07/21/23 13:15 07/21/23 13:30 07/21/23 13:30 Temperature 98.0 F 98.0 F Pulse Rate 80 77 Pulse Rate [Apical] Respiratory Rate 17 14 Blood Pressure 154/67 Blood Pressure [Right Arm] O2 Sat by Pulse Oximetry 100 100 Oxygen Delivery Method Oxygen Flow Rate FIO2% 07/21/23 13:45 07/21/23 13:45 07/21/23 14:00 Temperature 98.0 F Pulse Rate 76 Pulse Rate [Apical] Respiratory Rate 20 Blood Pressure 145/64 153/67 Blood Pressure [Right Arm] O2 Sat by Pulse Oximetry 100 Oxygen Delivery Method Oxygen Flow Rate FIO2% 07/21/23 14:00 07/21/23 14:00 07/21/23 14:15 Temperature 98.0 F Pulse Rate 77 Pulse Rate [Apical] Respiratory Rate 17 Blood Pressure 153/67 169/72 Blood Pressure [Right Arm] O2 Sat by Pulse Oximetry 99 Oxygen Delivery Method Oxygen Flow Rate FIO2% 07/21/23 14:15 07/21/23 14:01 07/21/23 14:30 Temperature 97.7 F Pulse Rate 81 76 Pulse Rate [Apical] Respiratory Rate 21 16 17 Blood Pressure Blood Pressure [Right Arm] O2 Sat by Pulse Oximetry 100 98 Oxygen Delivery Method Oxygen Flow Rate FIO2% 07/21/23 14:30 07/21/23 14:50 07/21/23 14:50 Temperature Pulse Rate 82 Pulse Rate [Apical] Respiratory Rate 20 Blood Pressure 156/55 176/76 Blood Pressure [Right Arm] O2 Sat by Pulse Oximetry 100 Oxygen Delivery Method Oxygen Flow Rate FIO2% 07/21/23 15:00 07/21/23 15:00 07/21/23 15:15 Temperature Pulse Rate 82 Pulse Rate [Apical] Respiratory Rate 25 H Blood Pressure 162/72 138/64 Blood Pressure [Right Arm] O2 Sat by Pulse Oximetry 72 L Oxygen Delivery Method Oxygen Flow Rate FIO2% 07/21/23 15:15 07/21/23 14:50 07/21/23 15:20 Temperature 98.4 F Pulse Rate 75 Pulse Rate [Apical] Respiratory Rate 15 20 20 Blood Pressure Blood Pressure [Right Arm] O2 Sat by Pulse Oximetry 98 Oxygen Delivery Method Oxygen Flow Rate FIO2% 07/21/23 15:30 07/21/23 15:30 07/21/23 15:45 Temperature Pulse Rate 77 80 Pulse Rate [Apical] Respiratory Rate 18 16 Blood Pressure 143/64 Blood Pressure [Right Arm] O2 Sat by Pulse Oximetry 100 98 Oxygen Delivery Method Oxygen Flow Rate FIO2% 07/21/23 15:45 07/21/23 16:00 07/21/23 16:01 Temperature Pulse Rate 87 90 Pulse Rate [Apical] Respiratory Rate 22 22 Blood Pressure 155/69 Blood Pressure [Right Arm] O2 Sat by Pulse Oximetry 100 100 Oxygen Delivery Method Oxygen Flow Rate FIO2% 07/21/23 16:01 07/21/23 16:15 07/21/23 16:15 Temperature Pulse Rate Pulse Rate [Apical] Respiratory Rate Blood Pressure 183/77 170/75 170/75 Blood Pressure [Right Arm] O2 Sat by Pulse Oximetry Oxygen Delivery Method Oxygen Flow Rate FIO2% 07/21/23 16:15 07/21/23 16:30 07/21/23 16:30 Temperature 98.4 F Pulse Rate 84 85 Pulse Rate [Apical] Respiratory Rate 26 H 23 Blood Pressure 168/73 Blood Pressure [Right Arm] O2 Sat by Pulse Oximetry 100 100 Oxygen Delivery Method Oxygen Flow Rate FIO2% 07/21/23 16:45 07/21/23 16:45 07/21/23 17:00 Temperature Pulse Rate 80 Pulse Rate [Apical] Respiratory Rate 17 Blood Pressure 157/68 160/70 Blood Pressure [Right Arm] O2 Sat by Pulse Oximetry 100 Oxygen Delivery Method Oxygen Flow Rate FIO2% 07/21/23 17:00 07/21/23 17:15 07/21/23 17:15 Temperature Pulse Rate 84 Pulse Rate [Apical] Respiratory Rate 18 Blood Pressure 170/76 170/76 Blood Pressure [Right Arm] O2 Sat by Pulse Oximetry 100 Oxygen Delivery Method Oxygen Flow Rate FIO2% 07/21/23 17:15 07/21/23 17:30 07/21/23 17:30 Temperature 98.4 F Pulse Rate 84 87 Pulse Rate [Apical] Respiratory Rate 18 19 Blood Pressure 165/72 Blood Pressure [Right Arm] O2 Sat by Pulse Oximetry 100 100 Oxygen Delivery Method Oxygen Flow Rate FIO2% 07/21/23 17:45 07/21/23 17:45 07/21/23 18:00 Temperature Pulse Rate 95 H Pulse Rate [Apical] Respiratory Rate 23 Blood Pressure 190/81 178/79 Blood Pressure [Right Arm] O2 Sat by Pulse Oximetry 100 Oxygen Delivery Method Oxygen Flow Rate FIO2% 07/21/23 18:00 07/21/23 18:15 07/21/23 18:15 Temperature Pulse Rate 92 H Pulse Rate [Apical] Respiratory Rate 25 H Blood Pressure 153/70 153/70 Blood Pressure [Right Arm] O2 Sat by Pulse Oximetry 100 Oxygen Delivery Method Oxygen Flow Rate FIO2% 07/21/23 18:15 07/21/23 18:30 07/21/23 18:30 Temperature Pulse Rate 90 96 H Pulse Rate [Apical] Respiratory Rate 26 H 24 Blood Pressure 167/73 Blood Pressure [Right Arm] O2 Sat by Pulse Oximetry 100 100 Oxygen Delivery Method Oxygen Flow Rate FIO2% 07/21/23 17:55 07/21/23 18:25 07/21/23 19:09 Temperature Pulse Rate Pulse Rate [Apical] Respiratory Rate 20 20 24 Blood Pressure Blood Pressure [Right Arm] O2 Sat by Pulse Oximetry Oxygen Delivery Method Oxygen Flow Rate FIO2% 07/21/23 19:00 07/21/23 19:00 07/21/23 20:42 Temperature Pulse Rate 99 H Pulse Rate [Apical] Respiratory Rate 26 H 21 Blood Pressure 164/74 Blood Pressure [Right Arm] O2 Sat by Pulse Oximetry 100 Oxygen Delivery Method Room Air Oxygen Flow Rate 2 FIO2% 07/21/23 21:16 07/21/23 22:58 07/21/23 22:58 Temperature Pulse Rate Pulse Rate [Apical] Respiratory Rate 22 23 23 Blood Pressure Blood Pressure [Right Arm] O2 Sat by Pulse Oximetry Oxygen Delivery Method Oxygen Flow Rate FIO2% 07/21/23 21:09 07/21/23 20:00 07/21/23 21:00 Temperature 98.9 F Pulse Rate 102 H 97 H Pulse Rate [Apical] Respiratory Rate 21 25 H 20 Blood Pressure 188/80 191/81 Blood Pressure [Right Arm] O2 Sat by Pulse Oximetry 100 97 Oxygen Delivery Method Oxygen Flow Rate 2 2 FIO2% 07/21/23 22:00 07/21/23 22:16 07/21/23 23:00 Temperature Pulse Rate 93 H 94 H Pulse Rate [Apical] Respiratory Rate 23 20 18 Blood Pressure 161/71 164/69 Blood Pressure [Right Arm] O2 Sat by Pulse Oximetry 100 100 Oxygen Delivery Method Oxygen Flow Rate 2 2 FIO2% 07/22/23 00:00 07/21/23 23:58 07/22/23 01:04 Temperature 98.2 F Pulse Rate 92 H Pulse Rate [Apical] Respiratory Rate 28 H 24 24 Blood Pressure 155/67 Blood Pressure [Right Arm] O2 Sat by Pulse Oximetry 100 Oxygen Delivery Method Oxygen Flow Rate 2 FIO2% 07/22/23 01:00 07/22/23 02:00 07/22/23 03:08 Temperature Pulse Rate 87 94 H Pulse Rate [Apical] Respiratory Rate 18 16 18 Blood Pressure 141/65 152/67 Blood Pressure [Right Arm] O2 Sat by Pulse Oximetry 100 100 Oxygen Delivery Method Oxygen Flow Rate 2 2 FIO2% 07/22/23 02:04 07/22/23 03:04 07/22/23 03:00 Temperature Pulse Rate 86 Pulse Rate [Apical] Respiratory Rate 22 18 18 Blood Pressure 178/77 Blood Pressure [Right Arm] O2 Sat by Pulse Oximetry 100 Oxygen Delivery Method Oxygen Flow Rate 2 FIO2% 07/22/23 04:00 07/22/23 05:00 07/22/23 04:08 Temperature 97.8 F Pulse Rate 87 93 H Pulse Rate [Apical] Respiratory Rate 18 30 H 18 Blood Pressure 134/62 156/71 Blood Pressure [Right Arm] O2 Sat by Pulse Oximetry 100 98 Oxygen Delivery Method Oxygen Flow Rate 2 2 FIO2% 07/22/23 06:00 07/22/23 07:00 07/22/23 08:20 Temperature Pulse Rate 85 Pulse Rate [Apical] Respiratory Rate 24 22 Blood Pressure 158/70 Blood Pressure [Right Arm] O2 Sat by Pulse Oximetry 100 Oxygen Delivery Method Nasal Cannula Oxygen Flow Rate 2 2 FIO2% 28 07/22/23 09:16 07/22/23 08:00 07/22/23 07:00 Temperature 98.0 F Pulse Rate 88 Pulse Rate [Apical] Respiratory Rate 20 20 Blood Pressure 156/70 Blood Pressure [Right Arm] O2 Sat by Pulse Oximetry 100 Oxygen Delivery Method Nasal Cannula Nasal Cannula Oxygen Flow Rate 2 2 FIO2% 07/22/23 08:00 07/22/23 09:46 07/22/23 12:00 Temperature Pulse Rate Pulse Rate [Apical] Respiratory Rate 20 20 20 Blood Pressure Blood Pressure [Right Arm] O2 Sat by Pulse Oximetry Oxygen Delivery Method Oxygen Flow Rate FIO2% 07/21/23 18:45 07/21/23 18:45 07/21/23 19:00 Temperature Pulse Rate 95 H Pulse Rate [Apical] Respiratory Rate 31 H Blood Pressure 181/82 164/74 Blood Pressure [Right Arm] O2 Sat by Pulse Oximetry 100 Oxygen Delivery Method Oxygen Flow Rate FIO2% 07/21/23 19:00 07/21/23 20:00 07/21/23 20:00 Temperature Pulse Rate 91 H 98 H Pulse Rate [Apical] Respiratory Rate 22 26 H Blood Pressure 188/80 Blood Pressure [Right Arm] O2 Sat by Pulse Oximetry 100 100 Oxygen Delivery Method Oxygen Flow Rate FIO2% 07/21/23 21:00 07/21/23 21:00 07/21/23 22:00 Temperature Pulse Rate 108 H Pulse Rate [Apical] Respiratory Rate 18 Blood Pressure 191/81 161/71 Blood Pressure [Right Arm] O2 Sat by Pulse Oximetry 100 Oxygen Delivery Method Oxygen Flow Rate FIO2% 07/21/23 22:00 07/21/23 23:00 07/21/23 23:00 Temperature Pulse Rate 97 H 95 H Pulse Rate [Apical] Respiratory Rate 20 22 Blood Pressure 164/69 Blood Pressure [Right Arm] O2 Sat by Pulse Oximetry 100 100 Oxygen Delivery Method Oxygen Flow Rate FIO2% 07/22/23 00:00 07/22/23 00:00 07/22/23 01:00 Temperature Pulse Rate 91 H 88 Pulse Rate [Apical] Respiratory Rate 22 22 Blood Pressure 155/67 Blood Pressure [Right Arm] O2 Sat by Pulse Oximetry 100 100 Oxygen Delivery Method Oxygen Flow Rate FIO2% 07/22/23 01:00 07/22/23 02:00 07/22/23 02:00 Temperature Pulse Rate 84 Pulse Rate [Apical] Respiratory Rate 21 Blood Pressure 141/65 152/67 Blood Pressure [Right Arm] O2 Sat by Pulse Oximetry 100 Oxygen Delivery Method Oxygen Flow Rate FIO2% 07/22/23 03:00 07/22/23 03:00 07/22/23 04:00 Temperature Pulse Rate 92 H 87 Pulse Rate [Apical] Respiratory Rate 28 H 18 Blood Pressure 178/77 Blood Pressure [Right Arm] O2 Sat by Pulse Oximetry 100 100 Oxygen Delivery Method Oxygen Flow Rate FIO2% 07/22/23 04:00 07/22/23 05:00 07/22/23 05:00 Temperature Pulse Rate 84 Pulse Rate [Apical] Respiratory Rate 17 Blood Pressure 134/62 156/71 Blood Pressure [Right Arm] O2 Sat by Pulse Oximetry 100 Oxygen Delivery Method Oxygen Flow Rate FIO2% 07/22/23 06:00 07/22/23 06:00 07/22/23 07:00 Temperature Pulse Rate 90 Pulse Rate [Apical] Respiratory Rate 26 H Blood Pressure 158/70 179/72 Blood Pressure [Right Arm] O2 Sat by Pulse Oximetry 100 Oxygen Delivery Method Oxygen Flow Rate FIO2% 07/22/23 07:00 07/22/23 08:00 07/22/23 08:00 Temperature Pulse Rate 88 88 Pulse Rate [Apical] Respiratory Rate 22 20 Blood Pressure 156/70 Blood Pressure [Right Arm] O2 Sat by Pulse Oximetry 100 100 Oxygen Delivery Method Oxygen Flow Rate FIO2% 07/22/23 09:00 07/22/23 09:00 07/22/23 10:00 Temperature Pulse Rate 89 Pulse Rate [Apical] Respiratory Rate 20 Blood Pressure 167/70 155/67 Blood Pressure [Right Arm] O2 Sat by Pulse Oximetry 100 Oxygen Delivery Method Oxygen Flow Rate FIO2% 07/22/23 10:00 07/22/23 11:00 07/22/23 11:00 Temperature Pulse Rate 87 92 H Pulse Rate [Apical] Respiratory Rate 16 24 Blood Pressure 123/58 Blood Pressure [Right Arm] O2 Sat by Pulse Oximetry 100 98 Oxygen Delivery Method Oxygen Flow Rate FIO2% Labs: Laboratory Last Values WBC 8.4 X10^3/uL (3.6-10.0) 07/22/23 04:10 RBC 3.12 X10^6/uL (4.7-6.0) L 07/22/23 04:10 Hgb 9.4 g/dL (13.5-18.0) L 07/22/23 04:10 Hct 28.6 % (42.0-54.0) L 07/22/23 04:10 MCV 91.7 fL (80.0-100.0) 07/22/23 04:10 MCH 30.1 pg (27.0-34.0) 07/22/23 04:10 MCHC 32.9 g/dL (33.0-35.0) L 07/22/23 04:10 RDW 19.5 % (11.6-16.5) H 07/22/23 04:10 Plt Count 113 X10^3/uL (150.0-450.0) L 07/22/23 04:10 Plt Count Comment Decreased (ADEQUATE) 07/21/23 04:05 MPV 7.6 fL (7.4-11.0) 07/22/23 04:10 Neut % (Auto) 85.7 % (42.0-75.0) H 07/22/23 04:10 Lymph % (Auto) 4.0 % (21.0-51.0) L 07/22/23 04:10 [place] % (Auto) 9.5 % (0.0-13.0) 07/22/23 04:10 Eos % (Auto) 0.5 % (0.9-2.9) L 07/22/23 04:10 Baso % (Auto) 0.3 % (0.2-1.0) 07/22/23 04:10 Neut # (Auto) 7.2 x10^3/uL (2.2-4.8) H 07/22/23 04:10 Lymph # (Auto) 0.3 X10^3/uL (1.3-2.9) L 07/22/23 04:10 [place] # (Auto) 0.8 x10^3/uL (0.3-0.8) 07/22/23 04:10 Eos # (Auto) 0.0 x10^3/uL (0.0-0.2) 07/22/23 04:10 Baso # (Auto) 0.0 X10^3/uL (0.0-0.1) 07/22/23 04:10 Absolute Nucleated RBC 0.2 /100WBC 07/22/23 04:10 Total Counted 50 07/21/23 04:05 Neutrophils % (Manual) 74 % (39-76) 07/21/23 04:05 Lymphocytes % (Manual) 16 % (13-43) 07/21/23 04:05 Monocytes % (Manual) 10 % (4-9) H 07/21/23 04:05 Plt Morphology Comment Normal (NORMAL) 07/21/23 04:05 RBC Morphology Normal (NORMAL) 07/21/23 04:05 Sodium 139 mmol/L (136-145) 07/22/23 04:10 Corrected Sodium 140 mmol/L (136-145) 07/22/23 04:10 Potassium 4.8 mmol/L (3.5-5.1) 07/22/23 04:10 Chloride 105 mmol/L (98-107) 07/22/23 04:10 Carbon Dioxide 14.3 mmol/L (21-32) L* 07/22/23 04:10 BUN 6 mg/dL (7-18) L 07/22/23 04:10 Creatinine 0.82 mg/dL (0.70-1.30) 07/22/23 04:10 Est GFR (MDRD) Af Amer > 60 (>60) 07/22/23 04:10 Est GFR (MDRD) Non-Af > 60 (>60) 07/22/23 04:10 Glucose 139 mg/dL (65-99) H 07/22/23 04:10 POC Glucose (mg/dL) 178 mg/dL (65-99) H 07/22/23 11:28 Calcium 7.9 mg/dL (8.5-10.1) L 07/22/23 04:10 Corrected Calcium 9.8 mg/dL (8.5-10.1) 07/21/23 04:05 Magnesium 2.1 mg/dL (2.0-2.9) 07/20/23 04:14 Total Bilirubin 0.90 mg/dL (0.2-1.0) 07/21/23 04:05 AST 16 Units/L (15-37) 07/21/23 04:05 ALT 11 Units/L (12-78) L 07/21/23 04:05 Alkaline Phosphatase 64 Units/L (46-116) 07/21/23 04:05 Total Protein 6.1 g/dL (6.4-8.2) L 07/21/23 04:05 Albumin 2.5 g/dL (3.4-5.0) L 07/21/23 04:05 Globulin 3.6 g/dL (2.5-4.5) 07/21/23 04:05 Albumin/Globulin Ratio 0.7 Ratio (1.1-2.1) L 07/21/23 04:05 Specimen Type Clean catch urine 07/17/23 06:22 Urine Color Yellow (YELLOW) 07/17/23 06:22 Urine Appearance Clear (CLEAR) 07/17/23 06:22 Urine pH 5.0 (5.0 - 8.0) 07/17/23 06:22 Ur Specific [place] 1.015 (1.000-1.030) 07/17/23 06:22 Urine Protein Negative (NEGATIVE) 07/17/23 06:22 Urine Glucose (UA) 4+ (NEGATIVE) 07/17/23 06:22 Urine Ketones Negative (NEGATIVE) 07/17/23 06:22 Urine Blood 1+ (NEGATIVE) 07/17/23 06:22 Urine Nitrite Negative (NEGATIVE) 07/17/23 06:22 Urine Bilirubin Negative (NEGATIVE) 07/17/23 06:22 Urine Urobilinogen Normal (NORMAL) 07/17/23 06:22 Ur Leukocyte Esterase Negative (NEGATIVE) 07/17/23 06:22 Urine RBC 0-2 /HPF (0-3) 07/17/23 06:22 Urine WBC 0-2 /HPF (0-5) 07/17/23 06:22 Ur Squamous Epith Cells Negative /HPF (NEGATIVE) 07/17/23 06:22 Urine Bacteria Trace /HPF (NEGATIVE) 07/17/23 06:22 Urine Mucus Rare /HPF (NEGATIVE) 07/17/23 06:22 Ur Culture Indicated? No/not indicated 07/17/23 06:22 Blood Type O POSITIVE 07/18/23 13:30 Antibody Screen Negative 07/18/23 13:30 Crossmatch See Detail 07/18/23 13:30 Reason For Visit: ATHEROSCLEROSIS OF NATIV ARTERIES, PVD Discharge Date Discharge Date: 07/22/23 Discharge Diagnosis All Active Problems (Updated 07/17/23 @ 12:52 by Herrera Avery) Atherosclerosis of [place] arteries of extremities with rest pain, right leg (Acute) Atherosclerosis of [place] arteries of extremities with rest pain, left leg (Acute) Carotid stenosis, bilateral (Acute) Cirrhosis (Acute) Hyperlipidemia (Acute) Gastro-esophageal reflux disease without esophagitis (Acute) History of stroke (Acute) Chronic ischemic heart disease, unspecified (Acute) Essential (primary) hypertension (Acute) Plan of Treatment: Continue with present treatment and follow up plan. Pt is to keep follow up appointment as instructed and take medications as ordered. Discharge Medications Discharge Medications: No Known Allergies Allergy (Verified 07/11/23 18:37) CONTINUE taking the following medications cilostazol 100 mg tablet 100 mg PO BID 07/17/23 [History] clopidogrel 75 mg tablet 75 mg PO QDAY 07/17/23 [History] fluconazole 100 mg tablet 100 mg PO QDAY 07/17/23 [History] hydrocodone 10 mg-acetaminophen 325 mg tablet 1 tab PO Q8H PRN pain 07/17/23 [History] semaglutide 0.25 mg or 0.5 mg (2 mg/3 mL) subcutaneous pen injector (Ozempic) 0.5 mg subcut QWEEK 07/17/23 [History] Percocet 5 mg, 1 po q 6Ht PRN pain Discharge Disposition Assessment: see hospital course Discharge Plan Discharge Plan Hospital Course: 67 yo male with critical right leg ischemia . Admitted Underwent revascularization right leg. See operaetive summaries for detail. Discharge, f/u 1 week Patient Disposition: 01 HOME, SELF-CARE Condition: Stable Health Concerns: Post Hospitalization: new medications and changes needed to prevent readmission or further decline. Pt educated and given instructions on all concerns. Care Plan Goals: Problem: Pain/Alteration in Comfort Goal: Improve/ Resolve Pain; Achieve Pain Tolerance Instructions: Take pain medications as prescribed. Contact your primary care provider if your pain is unrelieved or worsens. Follow up with primary care provider as directed. Plan of Treatment: Continue with present treatment and follow up plan. Pt is to keep follow up appointment as instructed and take medications as ordered. Assessment: see hospital course Prescription drug monitoring program results: PDMP was not reviewed Prescriptions: New oxycodone-acetaminophen [Percocet] 5-325 mg tablet 1 tab PO Q6H MDD 4 PRNQty: 30 0RF Continued sotalol 80 mg tablet 80 mg PO BID tamsulosin 0.4 mg capsule 0.4 mg PO QDAY metoprolol succinate 50 mg tablet extended release 24 hr 50 mg PO QDAY amlodipine-benazepril 5-10 mg Capsule 1 cap PO DAILY folic acid 1 mg Tablet 1 mg PO QDAY omeprazole 40 mg Capsule,Delayed Release(Dr/Ec) 40 mg PO DAILY fluconazole 100 mg Tablet 100 mg PO QDAY Rx Instructions: Daily x 10 days, filled on 07/11/2023 rosuvastatin 20 mg Tablet 20 mg PO QDAY Jardiance 25 mg Tablet 25 mg PO QAM solifenacin [Vesicare] 10 mg Tablet 10 mg PO QDAY fluconazole 100 mg tablet 100 mg PO QDAY cilostazol 100 mg tablet 100 mg PO BID clopidogrel 75 mg tablet 75 mg PO QDAY hydrocodone-acetaminophen 10-325 mg tablet 1 tab PO Q8H PRN (Reason: pain) Ozempic 0.25 mg or 0.5 mg (2 mg/3 mL) pen injector 0.5 mg SUBCUT QWEEK Follow ups/Referrals Follow ups/Referrals: Herrera Avery [Primary Care Provider] - 07/29/23 11:30 am (FOLLOW UP WITH DR. AVERY IN OFFICE NEXT TUESDAY) Instructions Instructions: Atherosclerosis, Endovascular Therapy for Peripheral Vascular Disease, Care After, Pain Medicine Instructions, [id number], How to Prevent Constipation After Surgery Activity Restrictions/Additional Instructions: Physician to sent Percocet to your pharmacy. Stand Alone Forms: Post Hospital Follow Up Care
--- NOTE | 2023-07-25 19:23 | DR.OPNOTE ---
OP NOTE Pre-Op Diagnosis: Critical ischemia right leg Post-Op Diagnosis: same Procedure Date Date Of Procedure: 07/19/23 Procedure: PROCEDURE: DIAGNOSTIC AORTOGRAM RIGHT LEG, DIAGNOSTIC AORTOGRAM, ATHERECTOMY AND DRUG COATED BALLOON ANGIOPLASTY RIGHT SUPERFICIAL FEMORAL ARTERY NARRATIVE : This patient has previously had left leg arterial intervention with atherectomy and angioplasty of previously placed superficial femoral artery stents as well as bilateral common iliac artery stenting and stenting of the right external iliac artery. Patient has continued ischemia with known disease of the distal portion of the right leg arteries . The patient was taken to the operative suite and placed in the Supine position. The entire right leg and the left groin were prepped and drapped in sterile fashion. The patient was given intravenous sedation supervised by myself. Timeout for the procedure obtained. Ultrasound used to identify the left posterior tibial artery at the ankle and the skin overlying it infiltrated with 0.5% Marcaine. Ultrasound used to guide puncture of the left posterior tibial artery and 0.014 inch guide wire placed. Incision made over the guide wire and a 4 [place] slim sheath placed over the wire into the posterior tibial artery. Arteriogram confirmed that we were indeed in the postereior tibial artery and the patient had good three vessel runoff. Small wire exchanged for a 0.035 inch Advantage [place] wire and [place] catheter used to perform sequential arteriograms of the right leg showing significant disease of the entire right superficial artery with occluded right common femoral artery .I was able to use the [place] catheter and the 0.035 inch wire to get across the occluded femoral artery into the previously placed external iliac artery stent. The arteriogram confirmed that we were indeed across the occlusion. The occlusion was in the common femoral artery and there appeared to be dissection here with re- entry into the lumen of the external iliac artery stent. For this reason we knew we were going to have to perform endarterectomy and tacking down of the dissection in open fashion and at that time would probably place stents in the right superficial femoral artery. The 0.035 inch wire exchanged for the 0.014 inch wire . Over the wire we placed the [place] device and performed atherectomy of the entire right superficial femoral artery and then balloon dilated it with a 5 mm x 200 mm [place] drug coated balloon and a 5 mm x150 mm [place] drug coated balloon inflating each for 3 minutes. Arteriogram showed excellent result of the right superficial femoral artery .All wires and devices removed. The patient had been given 3,000 units IV heparin at the beginning of the case. This was not reversed. The sheath removed from the right posterior tibial artery and tibial band used to occlude the puncture site. This will be sequentially decompressed when there is no bleeding. Patient taken back to the CCU. Type of Anesthesia: Local (0.5% Marcaine ) Anesthesia Comment: plus MAC Findings: severe occlusive disease of the right superficial femoral artery, occluded right common femoral artery Type of Fluids Used:: Lactated Ringers Total Amount of Fluid Infused:: 400cc Urine output: 200cc EBL: < 50 cc Complications:: none Needle/Sponge Count:: correct Disposition/Condition: Pt. tolerated procedure without difficulty. Taken to [facility] in stable condition.
--- NOTE | 2023-07-26 23:39 | DR.OPNOTE ---
OP NOTE Pre-Op Diagnosis: critical ischemia right leg, complete occlusion right common femoral artery Post-Op Diagnosis: same Procedure Date Date Of Procedure: 07/21/23 Procedure: PROCEDURE : RIGHT COMMON FEMORAL ARTERY ENDARTERECTOMY AND PATCH ANGIOPLASTY, AORTOGRAM, ARTERIOGRAM RIGHT LEG, ANGIOPLASTY RIGHT DISTAL EXTERNAL ILIAC ARTERY STENT, DRUG COATED STENTING OF PROXIMAL RIGHT SUPERFICIAL FEMORAL ARTERY NARRATIVE :The patient was taken to the operative suite and placed in the supine position. Endotracheal anesthesia induced. The left groin and entire right leg were prepped and draped in sterile fashion. Time out for the procedure obtained. Vertical incision was made in the right groin with a number 15 knife blade and into the subcutaneous tissue with electrocautery dissecting sharply down to the common femoral artery. There was significant inflammation from previous needle stick approaches to the right groin. On the dissecting proximally the previously placed Angio seal device became dislodged and there were significant bleeding requiring clamping of the artery above this. This ultimately resulted in crushing of the distal aspect of the right external iliac artery stent. Proximal dissection carried out after closing this hole in the femoral artery with Figure of 8 sutures of 5-0 Prolene suture. Dissection carried up to distal aspect of the external iliac artery and vessel loop placed around this part of the artery. Dissection carried caudally and the multiple branches of the profunda artery were surrounded with vessel loops as was the superficial femoral artery distally. All portions of the right femoral artery clamped and the patient given 5,000 units of IV Heparin. 11 knife blade and Pott's scissors used to open the artery. Patient had a very diseased artery with question of dissection. Endarterectomy carried out removing all plaque material of the common femoral artery down to the superficial femoral artery. All floating material removed. The intima of the superficial femoral artery was tacked up to the adventitia with tacking sutures of 6 -0 Prolene. This arteriotomy required 2 patches of bovine pericardium measuring 8 centimeters by 0.8 centimeters each which were sewn into position with running 5 -0 Prolene suture. Patient did require additional 3000 units of IV hepatin. Once these were tied into position clamps were removed and there was no significant blood loss from this point on. No bleeding from the patch itself. Pursestring suture placed in the distal aspect of the patch and needle placed through this and 0.014 inch guidewire placed and over this a micro sheath placed. Arteriogram showed the crushed end of the right external ilac artery stent. Carefully the wire was placed through the stent into the aorta. [place] catheter placed over this and this exchanged for a 0.035 inch Advantage glidewire. Over the guide wire we placed a [employer] [place] balloon measuring 6 millimeter by 40 millimeters and balloon dilated the distal aspect of the right external iliac artery stent . Repeat arteriogram through the sheath showed excellent flow all the way into the aorta. This sheath removed and the pursesting suture tied in position. At this point a pursestring suture of 6-0 Prolene placed in the proximal portion of the patch and this punctured going distally with a small needle and a 0.014 inch wire placed. Micro sheath place over this and arteriogram showed the area where the inima was tacked as well as severe disease of the proximal right superficial femoral artery. The micro sheath exchanged over this wire for a 6 Fr vascular sheath and through t his we placed a 0.035 inch Advantage glidewire across the intima and across the proximal superficial femoral artery and into the popliteal artery. We then placed two [place] drug coated stents each measuring 6 millimeter x 150 millimeters end to end extending from the area of the intima proximally where it was tacked up with 3 millimeter overlap of the stents . The stents then balloon dilated with a 6 millimeter [place] balloon. Follow up arteriogram showed good flow all the way to the foot. The sheath removed and the purse string tied into position. There was no active bleeding. The groin incision was irrigated with saline. The deep tissues closed with running 3-0 Vicryl suture. Subcutaneous tissue closed with running 3-0 Vicryl suture and the skin closed with skin [place]. The patient tolerated this procedure very well . Patient was extubated and taken to PACU after extubation and was in good condition . Type of Anesthesia: General Anesthetic w/ETT Findings: complete occlusion right common femoral artery, crush of distal right external,iliac artery stent, severe disease right proximal superficial femoral artery Type of Fluids Used:: Lactated Ringers Total Amount of Fluid Infused:: 3500cc + one unit PRBCs Urine output: 700cc EBL: 500 cc Hardware: Fa[place] 6mmx 150 mm drug coated stent x 2 deployed in the right superficial femoral artery Complications:: none Needle/Sponge Count:: correct Disposition/Condition: Pt. tolerated procedure without difficulty. Extubated in the OR and taken to PACU in stable condition. Type of Anesthesia: General Anesthetic w/ETT Findings: see body of dictation Type of Fluids Used:: Lactated Ringers (3500 cc) and Blood and Blood Products (i unit PRBCS) Complications:: None Needle/Sponge Count:: correct Disposition/Condition: Pt. tolerated procedure without difficulty. Extubated in the OR and taken to PACU in stable condition.
== END 2023-07-22 12:05 | disposition home or self-care (01) | DRG 272 ==
LOC: ER 02:02 → ICU 02:02 → OBSVTOIN 03:33 → ICU 04:38
PROVIDERS: ADMIT Surgery; ATTEND Surgery
DX: E78.5 Hyperlipidemia, unspecified; I10 Essential (primary) hypertension; I65.23 Occlusion and stenosis of bilateral carotid arteries; Z86.73 Personal history of transient ischemic attack (TIA), and cerebral infarction without residual deficits; I25.10 Atherosclerotic heart disease of native coronary artery without angina pectoris; I70.221 Atherosclerosis of native arteries of extremities with rest pain, right leg; E11.65 Type 2 diabetes mellitus with hyperglycemia; Z65.8 Other specified problems related to psychosocial circumstances; K21.9 Gastro-esophageal reflux disease without esophagitis; K74.60 Unspecified cirrhosis of liver; R26.89 Other abnormalities of gait and mobility

== ENCOUNTER 2023-08-25 13:17 | Inpatient (IN) ==
[2023-08-25 16:22] VITALS: BMI 24.7
[2023-08-25] MEDS ORDERED: NovoLIN R (or HumuLIN R) SC PRN (17:02)
[2023-08-25] MEDS: LOVENOX INJ 80 MG SYR SC SCH (17:29)
--- NOTE | 2023-08-25 17:29 | DR.H&P ---
H&P History & Physical for Day of: H&P Date: 08/25/23 Chief Complaint Chief Complaint: severe rest pain right leg History of Present Illness History of Present Illness: This patient is a 67 year old male with multiple vascular issues over the last several weeks. He started originally approximately 6 weeks ago with acute ischemia of the left leg requiring admission and percutaneous thrombolytic catheter placment and thromblysis and subsequent stenting of the left superficial artery and the left and right iliac arteries. He required intervention of the right leg as well with severe rest pain with stenting of the right superficial femoral artery and ultimately had right common femoral endarterectomy and patch angioplasty. At that time we had to balloon open the external iliac artery stent on the right side. He was seen in follow- up approximately 1 week ago and f/u doppler today showing occluded right superficial femoral artery at its takeoff . He is admitted for pain control, possible thrombolysis, possible intervention of the right leg. He will be placed on therapeutic Lovenox dose at this time while we obtain the initial evaluation. Past Medical History Past Medical History: Anemia, Cirrhosis, Coronary Artery Disease, Diabetes, Dyslipidemia, GERD and Hypertension Additional Medical History: carotid artery stenosis s/p stenting of both , back pain Past Surgical History Surgical History: CABG/Valve Surgery and Carotid Endarterectomy Additional Surgical History: b/l inguinal hernia repair,b/ cataract surgery, Hx stenting left SFA , placement Watchman device Family History Family Medical History: [place] and Sudden Cardiac Social History Does patient currently use any type of tobacco product: No Type of Tobacco Use: None Does any household member use tobacco: No Alcohol Use: None Drug Use: None Medications Home Medications: Home Medications Medication Instructions Recorded Confirmed Type amlodipine 5 mg-benazepril 10 mg 1 cap PO DAILY 07/11/23 08/25/23 History capsule empagliflozin 25 mg tablet 25 mg PO QAM 07/11/23 08/25/23 History (Jardiance) folic acid 1 mg tablet 1 mg PO QDAY 07/11/23 08/25/23 History metoprolol succinate 50 mg 50 mg PO QDAY 07/11/23 08/25/23 History tablet,extended release 24 hr omeprazole 40 mg capsule,delayed 40 mg PO DAILY 07/11/23 08/25/23 History release rosuvastatin 20 mg tablet 20 mg PO QDAY 07/11/23 08/25/23 History solifenacin 10 mg tablet (Vesicare) 10 mg PO QDAY 07/11/23 08/25/23 History sotalol 80 mg tablet 80 mg PO BID 07/11/23 08/25/23 History tamsulosin 0.4 mg capsule 0.4 mg PO QDAY 07/11/23 08/25/23 History cilostazol 100 mg tablet 100 mg PO BID 07/17/23 08/25/23 History clopidogrel 75 mg tablet 75 mg PO QDAY 07/17/23 08/25/23 History hydrocodone 10 mg-acetaminophen 1 tab PO Q8H PRN pain 07/17/23 08/25/23 History 325 mg tablet semaglutide 0.25 mg or 0.5 mg (2 0.5 mg subcut QWEEK 07/17/23 08/25/23 History mg/3 mL) subcutaneous pen injector (Ozempic) Allergies Allergies Allergy/AdvReac Type Severity Reaction Status Date / Time No Known Allergies Allergy Verified 07/11/23 18:37 Labs Labs: Laboratory POC Glucose (mg/dL) 150 mg/dL (65-99) H 08/25/23 16:53 Review of Systems Constitutional: See HPI Eyes: No Symptoms Reported ENT: No Symptoms Reported Respiratory: No Symptoms Reported Cardiovascular: See HPI Gastrointestinal: See HPI Genitourinary: No Symptoms Reported Musculoskeletal: See HPI Skin: No Symptoms Reported Neurological: No Symptoms Reported Physical Exam Vital Signs: Vital Signs Pulse Rate 68 Pulse Rate 69 Pulse Rate 73 Pulse Rate 66 Pulse Rate 71 Pulse Rate 69 Pulse Rate 69 Respiratory Rate 15 Respiratory Rate 20 Respiratory Rate 21 Respiratory Rate 22 Respiratory Rate 24 Respiratory Rate 20 Respiratory Rate 32 Blood Pressure 136/60 Blood Pressure 149/66 Blood Pressure 149/66 Blood Pressure 149/66 O2 Sat by Pulse Oximetry 100 O2 Sat by Pulse Oximetry 100 O2 Sat by Pulse Oximetry 100 O2 Sat by Pulse Oximetry 100 O2 Sat by Pulse Oximetry 100 O2 Sat by Pulse Oximetry 100 Oriented: Normal, Time, Person, Place and Other (patient in pain and uncomfortable ) Eyes: Normal Ear: Normal Nose: Normal Throat: Normal Respiratory: Clear Throughout Cardiovascular: Normal and Other (Right foot cool with no palpablr pulses at the ankle. Moderate swellinga, nd left foot with palpable distal pulses ) : Normal Auscultation: Bowel Sounds: Normal Palpation: Normal Tenderness: Normal Skin: Normal Psychiatric: Anxiety Mood Description: Anxious Affect: Normal Speech Pattern: Clear and Appropriate Assessment/Plan (1) Atherosclerosis of [place] arteries of extremities with rest pain, right leg: Status: Acute Plan: will obtain laboratory values, obtain CT angiogram of the aorta with runoff, begin therapeutic Lovenox and his home medications (2) Atherosclerosis of [place] arteries of extremities with rest pain, left leg: Status: Acute Plan: left leg is stable and doing well (3) Carotid stenosis, bilateral: Status: Acute Plan: stable (4) Cirrhosis: Status: Acute Plan: being evaluated (5) Hyperlipidemia: Status: Acute Plan: home medications (6) Gastro-esophageal reflux disease without esophagitis: Status: Acute Plan: po Protonix (7) History of stroke: Status: Acute Plan: stable, no residual (8) Chronic ischemic heart disease, unspecified: Status: Acute Plan: home medications (9) Essential (primary) hypertension: Status: Acute Plan: home medications Review H&P Reviewed: Yes Patient was examined?: Yes
[2023-08-25] MEDS: LR 1,000 ML IV 1,000 ML IV SCH (17:30)
[2023-08-25] MEDS: DILAUDID INJ IVP PRN (17:30)
[2023-08-25 17:40] LABS: LYMPHOCYTES # (AUTO) 0.4 X10^3/uL (1.3-2.9); MONOCYTES # (AUTO) 0.1 x10^3/uL (0.3-0.8); MONOCYTES % (AUTO) 8.3 % (0.0-13.0); NEUTROPHILS # (AUTO) 1.2 x10^3/uL (2.2-4.8)
[2023-08-25 17:45] LABS: ALANINE AMINOTRANSFERASE 16 Units/L (12-78); ALBUMIN 3.2 g/dL (3.4-5.0); ALKALINE PHOSPHATASE 69 Units/L (46-116); ASPARTATE AMINO TRANSFERASE 15 Units/L (15-37); BLOOD UREA NITROGEN 11 mg/dL (7-18); CALCIUM 8.6 mg/dL (8.5-10.1); CARBON DIOXIDE 26.1 mmol/L (21-32); CHLORIDE 107 mmol/L (98-107); COR CA(FOR HYPOALB) 9.2 mg/dL (8.5-10.1); COR NA(FOR HYPERGLY) 141 mmol/L (136-145); CREATININE 0.69 mg/dL (0.70-1.30); GLUCOSE 148 mg/dL (65-99); POTASSIUM 3.9 mmol/L (3.5-5.1); SODIUM 140 mmol/L (136-145); TOTAL PROTEIN 6.9 g/dL (6.4-8.2); eGFR NON BLACK RACES > 60 (>60)
[2023-08-25 17:46] LABS: BASOPHILS % (AUTO) 0.6 % (0.2-1.0); EOSINOPHILS % (AUTO) 1.9 % (0.9-2.9); HEMOGLOBIN 10.1 g/dL (13.5-18.0); LYMPHOCYTES % (AUTO) 21.8 % (21.0-51.0); MEAN CORPUSCULAR HEMOGLOBIN 28.6 pg (27.0-34.0); MEAN CORPUSCULAR HGB CONC 32.5 g/dL (33.0-35.0); MEAN CORPUSCULAR VOLUME 88.1 fL (80.0-100.0); MEAN PLATELET VOLUME 8.1 fL (7.4-11.0); NEUTROPHILS % (AUTO) 67.4 % (42.0-75.0); PLATELET COUNT 83 X10^3/uL (150.0-450.0); RED BLOOD COUNT 3.52 X10^6/uL (4.7-6.0); RED CELL DISTRIBUTION WIDTH 15.6 % (11.6-16.5)
[2023-08-25 17:53] LABS: WHITE BLOOD COUNT 1.8 X10^3/uL (3.6-10.0)
[2023-08-25] MEDS: BETAPACE AF PO SCH (20:27)
[2023-08-25] MEDS: FLEXERIL TAB 10 MG PO SCH (20:27)
[2023-08-25] MEDS: CRESTOR TAB 10 MG PO SCH (20:27)
--- NOTE | 2023-08-25 20:46 | CT ---
EXAM:CTA AORTA WITH RUNOFFHISTORY:critical ischemia to the left lower leg;COMPARISON:07/17/2023, 06/15/2023.TECHNIQUE:Initially nonenhanced spiral CT imaging was performed through the abdomen, pelvis, and bilateral lower extremities. Following the intravenous administration of iodinated contrast, spiral CT imaging was performed through the abdomen, pelvis, and bilateral lower extremities and axial, coronal, and sagittal CT images were generated. Multi planar 3D MIP images were also generated.FINDINGS:There is mild basilar emphysema. There is no pleural effusion. There is no pulmonary embolus. Heart size is normal. Spleen is enlarged. Cirrhosis of the liver may be present. There is a non-specific lesion along the falciform ligament which is probably benign. Gallbladder, pancreas, adrenal glands are normal. Left kidney is mildly atrophic and slightly hypoenhancing. The right kidney is normal in size and enhancement. The stomach is normal. There is some mild prominence of the jejunum with loops measuring up to 3.4 cm diameter. No transition point is identified. The ileum is normal. The appendix is normal. There are a few diverticula in the sigmoid colon but no diverticulitis. The urinary bladder and prostate are normal.Angiography: There is heterogeneous plaque in the aorta but no flow-limiting stenosis or dissection.Celiac trunk: There is some disease but no flow-limiting stenosis.SMA: Minor disease.Right renal artery: Atherosclerosis but no flow-limiting stenosis.Left Renal artery: Flow-limiting stenosis. JEWEL: Disease at the origin but good flow beyond.Common iliac arteries: Heavy disease. Prior stent placement.Internal iliac arteries: Severe disease.External iliac arteries: Disease and stents bilaterally.Right leg: In the common femoral there is severe soft tissue plaque versus hematoma surrounding the vessel. There is complete occlusion a proximally 1 cm down the SFA. There is no reconstitution in the SFA. There is good flow in the right profunda. There is reconstitution in the popliteal artery which is diseased. There is three-vessel flow to the ankle but significant disease in the anterior tibial proximally and in the tibioperoneal trunk.Left leg: There is fairly severe disease in the common femoral. There is a stent in the superficial femoral which is patent. There is some disease in the popliteal but good enhancement. There is disease in the anterior tibial and in the tibioperoneal trunk. There is three-vessel runoff to the ankle.IMPRESSION:1. Complete occlusion which appears to be acute at the proximal right SFA.2. There is reconstitution of the right popliteal with three-vessel flow to the ankle.3. Other chronic changes as described above.THIS IS AN ELECTRONICALLY VERIFIED FINAL REPORT08/25/2023 8:42 PM - Electronically signed by Armen Membreno MD
[2023-08-26 05:36] LABS: BASOPHILS % (AUTO) 0.6 % (0.2-1.0); EOSINOPHILS # (AUTO) 0.1 x10^3/uL (0.0-0.2); EOSINOPHILS % (AUTO) 1.8 % (0.9-2.9); HEMOGLOBIN 10.6 g/dL (13.5-18.0); LYMPHOCYTES # (AUTO) 0.5 X10^3/uL (1.3-2.9); LYMPHOCYTES % (AUTO) 19.5 % (21.0-51.0); MEAN CORPUSCULAR HEMOGLOBIN 28.4 pg (27.0-34.0); MEAN CORPUSCULAR HGB CONC 32.1 g/dL (33.0-35.0); MEAN CORPUSCULAR VOLUME 88.5 fL (80.0-100.0); MEAN PLATELET VOLUME 7.7 fL (7.4-11.0); MONOCYTES # (AUTO) 0.2 x10^3/uL (0.3-0.8); MONOCYTES % (AUTO) 6.8 % (0.0-13.0); NEUTROPHILS % (AUTO) 71.3 % (42.0-75.0); PLATELET COUNT 80 X10^3/uL (150.0-450.0); RED BLOOD COUNT 3.73 X10^6/uL (4.7-6.0); RED CELL DISTRIBUTION WIDTH 15.5 % (11.6-16.5); WHITE BLOOD COUNT 2.8 X10^3/uL (3.6-10.0)
[2023-08-26 05:55] LABS: ALANINE AMINOTRANSFERASE 15 Units/L (12-78); ALBUMIN 3.2 g/dL (3.4-5.0); ALKALINE PHOSPHATASE 67 Units/L (46-116); ASPARTATE AMINO TRANSFERASE 21 Units/L (15-37); BLOOD UREA NITROGEN 8 mg/dL (7-18); CALCIUM 8.7 mg/dL (8.5-10.1); CARBON DIOXIDE 24.5 mmol/L (21-32); CHLORIDE 106 mmol/L (98-107); COR CA(FOR HYPOALB) 9.3 mg/dL (8.5-10.1); CREATININE 0.65 mg/dL (0.70-1.30); GLUCOSE 100 mg/dL (65-99); POTASSIUM 3.5 mmol/L (3.5-5.1); SODIUM 140 mmol/L (136-145); eGFR NON BLACK RACES > 60 (>60)
[2023-08-26] MEDS: OMNIPAQUE 350 mg/mL 50 mL BTL 50 ML ONE (06:47)
[2023-08-26] MEDS: OMNIPAQUE 350 mg/mL 100 mL BTL 100 ML ONE (06:47)
[2023-08-26] MEDS: LOTENSIN TAB 10 MG PO SCH (08:45)
[2023-08-26] MEDS: PROTONIX TAB 40 MG PO SCH (08:45)
[2023-08-26] MEDS: NEURONTIN CAP 100 MG PO SCH (08:45)
[2023-08-26] MEDS: NORVASC TAB 5 MG PO SCH (08:46)
[2023-08-26] MEDS: FLOMAX PO SCH (08:46)
[2023-08-26] MEDS: TOPROL XL PO SCH (08:46)
[2023-08-26] MEDS: ASPIRIN EC 81 MG PO SCH (08:47)
[2023-08-26] MEDS: HIBICLENS WASH EXT ONE (12:20)
[2023-08-26] MEDS ORDERED: HIBICLENS WASH ONE (12:20)
[2023-08-26] MEDS: NS 1,000 ML IV 1,000 ML ONE (13:17)
[2023-08-26] MEDS: VERSED ONE (13:40)
[2023-08-26] MEDS: DIPRIVAN VIAL 20 ML ONE ×3 (13:40→15:23)
[2023-08-26] MEDS: FENTANYL VIAL INJ 100 mcg ONE (13:40)
[2023-08-26] MEDS ORDERED: KETAMINE HCL ONE (13:40)
[2023-08-26] MEDS: NS 100 ML IV 100 ML ONE (13:40)
[2023-08-26] MEDS: ANCEF VIAL 1 GRAM ONE (13:40)
[2023-08-26] MEDS: HEPARIN SODIUM IN D5W 75,000 UNITS/1,500 ML BAG ONE (14:01)
[2023-08-26] MEDS: MARCAINE 0.5% ONE (14:01)
[2023-08-26] MEDS: VISIPAQUE 50 ML ONE (14:01)
[2023-08-26] MEDS: VISIPAQUE 100 ML ONE (14:01)
[2023-08-26] MEDS: HEPARIN SODIUM INJ 5000 UNITS ONE (14:10)
[2023-08-26] MEDS: HEPARIN SODIUM IN D5W 25,000 UNITS/500 ML BAG ONE (14:18)
--- NOTE | 2023-08-26 15:08 | OR.IMMED ---
IMMEDIATE POST-OP NOTE Immediate Post-Op Note Date of surgery/procedure: 08/26/23 Pre-Op Diagnosis: Critical ischemia right leg Post-Op Diagnosis: same Procedure: arteriogram right leg,approach via right posterior tibial artery, Angiojet thrombectomy right SFA, stent proximal right SFA at takeoff, balloon angioplasty right SFA previous placed stents . Description of Procedure: dictated Surgeon/Courtesy Bus Driver: Gena Findings: complete occlusion of right SFA from it's takoff throught SFA stents , reconstitution of the right popliteal artery with 3 vessel runoff into right foot. Estimated Blood Loss: < 50 cc Complications: none Progress Notes: Return to ICU, discontinued Lovenox and Begin Xarelto 2.5 milligrams BID in addition to aspirin. Discharge home tonight or in AM.
[2023-08-26] MEDS: CATAPRES TAB 0.1 MG PO ONE (15:38)
[2023-08-26] MEDS: CATAPRES TAB 0.1 MG ONE (16:06)
[2023-08-26] MEDS: XARELTO PO SCH (20:22)
[2023-08-27 06:10] VITALS: RESP 24
[2023-08-27 09:17] VITALS: BP 178/81; PULSE 80; O2SAT 97
[2023-08-27 11:09] VITALS: TEMP 98
--- NOTE | 2023-08-27 11:24 | W.DIS.FURT ---
Summary of Discharge Discharge Summary of Date Date of Exam: 08/27/23 Admission Date Date of Admission: 08/25/23 Admission Diagnosis Hospital Course: This is a 67 year old male who has had significant peripheral vascular disease of both legs requiring bilateral iliac artery stenting and stenting of both superficial femoral arteries. Most recently he had endarterectomy and patch angioplasty of the right common femoral artery with stenting of the right superficial from artery. Post procedure he has complained of pain of the right leg and ultrasound was consistent with occlusion of the right superficial femoral artery. He was admitted and CT angiogram obtained showing occlusion just distal to the takeoff of the right superficial femoral artery. He required approach via the right posterior tibial artery and underwent Angiojet t hrombectomy of thrombosis of the right superficial femoral artery and stents and additional stent placed in the proximal right superficial femoral artery with good resolution and flow into the foot with 3 vessel runoff. He has owen done well and will be discharged at this time on his usual medications to inclue Plavix and Pletal and he will be given prescription for Percocet , 5 milligram tablets, 1 every 6 hours PRN pain. he will follow up with me in 1 week. Vital Signs: Vital Signs (72 hours) 08/25/23 16:20 08/25/23 15:47 08/25/23 15:48 Temperature Pulse Rate 69 69 Respiratory Rate 32 H 20 Blood Pressure O2 Sat by Pulse Oximetry 100 Oxygen Delivery Method Room Air 08/25/23 15:48 08/25/23 15:48 08/25/23 16:00 Temperature Pulse Rate 71 Respiratory Rate 24 Blood Pressure 149/66 149/66 O2 Sat by Pulse Oximetry 100 Oxygen Delivery Method 08/25/23 16:00 08/25/23 16:15 08/25/23 16:30 Temperature Pulse Rate 66 73 Respiratory Rate 22 21 Blood Pressure 149/66 O2 Sat by Pulse Oximetry 100 100 Oxygen Delivery Method 08/25/23 16:45 08/25/23 17:00 08/25/23 17:00 Temperature Pulse Rate 69 68 Respiratory Rate 20 15 Blood Pressure 136/60 O2 Sat by Pulse Oximetry 100 100 Oxygen Delivery Method 08/25/23 17:30 08/25/23 18:00 08/25/23 17:15 Temperature Pulse Rate 71 Respiratory Rate 22 22 20 Blood Pressure O2 Sat by Pulse Oximetry 100 Oxygen Delivery Method 08/25/23 17:30 08/25/23 17:45 08/25/23 20:29 Temperature Pulse Rate 75 68 Respiratory Rate 26 H 10 L 24 Blood Pressure O2 Sat by Pulse Oximetry 99 100 Oxygen Delivery Method 08/25/23 23:19 08/25/23 19:00 08/25/23 19:00 Temperature Pulse Rate 78 Respiratory Rate 20 21 Blood Pressure 178/78 O2 Sat by Pulse Oximetry 99 Oxygen Delivery Method Room Air Room Air 08/25/23 20:00 08/25/23 21:00 08/25/23 20:59 Temperature 97.8 F Pulse Rate 75 72 Respiratory Rate 21 16 13 Blood Pressure 162/74 148/68 O2 Sat by Pulse Oximetry 99 100 Oxygen Delivery Method Room Air Room Air 08/25/23 22:00 08/25/23 23:00 08/26/23 00:00 Temperature 98.0 F Pulse Rate 67 72 71 Respiratory Rate 23 22 13 Blood Pressure 140/63 158/72 140/64 O2 Sat by Pulse Oximetry 95 100 95 Oxygen Delivery Method Room Air Room Air 08/26/23 01:18 08/26/23 01:00 08/26/23 02:00 Temperature Pulse Rate 68 94 H Respiratory Rate 20 12 13 Blood Pressure 153/69 153/69 O2 Sat by Pulse Oximetry 97 96 Oxygen Delivery Method Room Air Room Air 08/26/23 01:48 08/25/23 23:49 08/26/23 03:00 Temperature Pulse Rate 79 Respiratory Rate 14 20 20 Blood Pressure 162/72 O2 Sat by Pulse Oximetry 99 Oxygen Delivery Method Room Air 08/26/23 04:00 08/26/23 04:24 08/26/23 05:00 Temperature 98.4 F Pulse Rate 71 81 Respiratory Rate 14 18 20 Blood Pressure 173/77 170/74 O2 Sat by Pulse Oximetry 98 99 Oxygen Delivery Method Room Air 08/26/23 06:00 08/26/23 04:54 08/26/23 07:12 Temperature Pulse Rate 73 Respiratory Rate 20 16 Blood Pressure 178/80 O2 Sat by Pulse Oximetry 100 Oxygen Delivery Method Room Air Room Air 08/26/23 06:56 08/26/23 08:47 08/26/23 07:00 Temperature Pulse Rate Respiratory Rate 20 26 H Blood Pressure 187/83 O2 Sat by Pulse Oximetry Oxygen Delivery Method 08/26/23 07:00 08/26/23 07:15 08/26/23 07:30 Temperature Pulse Rate 80 78 82 Respiratory Rate 24 17 17 Blood Pressure O2 Sat by Pulse Oximetry 98 98 96 Oxygen Delivery Method 08/26/23 07:45 08/26/23 08:00 08/26/23 08:00 Temperature Pulse Rate 73 75 Respiratory Rate 12 18 Blood Pressure 148/70 O2 Sat by Pulse Oximetry 95 97 Oxygen Delivery Method 08/26/23 08:15 08/26/23 08:30 08/26/23 08:45 Temperature Pulse Rate 70 72 76 Respiratory Rate 17 12 19 Blood Pressure O2 Sat by Pulse Oximetry 96 99 98 Oxygen Delivery Method 08/26/23 09:22 08/26/23 09:24 08/26/23 09:24 Temperature Pulse Rate 85 81 Respiratory Rate 26 H 19 Blood Pressure 183/78 O2 Sat by Pulse Oximetry 99 Oxygen Delivery Method 08/26/23 09:30 08/26/23 09:45 08/26/23 10:02 Temperature Pulse Rate 80 79 84 Respiratory Rate 20 17 31 H Blood Pressure O2 Sat by Pulse Oximetry 100 100 100 Oxygen Delivery Method 08/26/23 10:15 08/26/23 10:30 08/26/23 10:45 Temperature Pulse Rate 75 75 74 Respiratory Rate 15 22 15 Blood Pressure O2 Sat by Pulse Oximetry 100 100 100 Oxygen Delivery Method 08/26/23 11:00 08/26/23 11:15 08/26/23 11:30 Temperature Pulse Rate 72 75 72 Respiratory Rate 10 L 14 12 Blood Pressure O2 Sat by Pulse Oximetry 100 98 99 Oxygen Delivery Method 08/26/23 11:45 08/26/23 12:00 08/26/23 12:15 Temperature Pulse Rate 75 71 72 Respiratory Rate 20 19 13 Blood Pressure O2 Sat by Pulse Oximetry 98 100 100 Oxygen Delivery Method 08/26/23 13:19 08/26/23 12:48 08/26/23 12:51 Temperature 98.4 F Pulse Rate 73 72 72 Respiratory Rate 18 16 Blood Pressure 183/83 O2 Sat by Pulse Oximetry 100 100 100 Oxygen Delivery Method Room Air 08/26/23 12:51 08/26/23 13:00 08/26/23 13:00 Temperature Pulse Rate 74 Respiratory Rate 16 Blood Pressure 175/79 165/76 O2 Sat by Pulse Oximetry 100 Oxygen Delivery Method 08/26/23 08:00 08/26/23 15:27 08/26/23 17:23 Temperature 98.3 F Pulse Rate Respiratory Rate 18 18 Blood Pressure O2 Sat by Pulse Oximetry Oxygen Delivery Method 08/26/23 15:01 08/26/23 15:02 08/26/23 15:15 Temperature 98.7 F Pulse Rate 78 Respiratory Rate 22 Blood Pressure 183/88 192/86 O2 Sat by Pulse Oximetry 96 Oxygen Delivery Method 08/26/23 15:15 08/26/23 15:30 08/26/23 15:30 Temperature 98.7 F 98.7 F Pulse Rate 75 79 Respiratory Rate 28 H 30 H Blood Pressure 196/97 O2 Sat by Pulse Oximetry 98 99 Oxygen Delivery Method 08/26/23 15:45 08/26/23 15:45 08/26/23 15:45 Temperature 98.7 F Pulse Rate 76 Respiratory Rate 18 Blood Pressure 191/92 191/92 O2 Sat by Pulse Oximetry 98 Oxygen Delivery Method 08/26/23 16:00 08/26/23 16:00 08/26/23 15:57 Temperature 98.8 F Pulse Rate 77 Respiratory Rate 18 18 Blood Pressure 193/87 O2 Sat by Pulse Oximetry 98 Oxygen Delivery Method 08/26/23 16:40 08/26/23 16:15 08/26/23 16:15 Temperature 98.7 F Pulse Rate 71 Respiratory Rate 17 Blood Pressure 179/79 O2 Sat by Pulse Oximetry 96 Oxygen Delivery Method 08/26/23 16:30 08/26/23 16:30 08/26/23 16:45 Temperature Pulse Rate 68 Respiratory Rate 21 Blood Pressure 165/75 182/81 O2 Sat by Pulse Oximetry 95 Oxygen Delivery Method 08/26/23 16:45 08/26/23 17:00 08/26/23 17:00 Temperature 98.8 F Pulse Rate 74 77 Respiratory Rate 17 17 Blood Pressure 178/83 O2 Sat by Pulse Oximetry 98 95 Oxygen Delivery Method 08/26/23 17:15 08/26/23 17:15 08/26/23 17:30 Temperature Pulse Rate 74 81 Respiratory Rate 20 35 H Blood Pressure 173/79 O2 Sat by Pulse Oximetry 98 96 Oxygen Delivery Method 08/26/23 17:31 08/26/23 17:31 08/26/23 17:45 Temperature Pulse Rate 82 77 Respiratory Rate 33 H 20 Blood Pressure 192/87 O2 Sat by Pulse Oximetry 97 94 L Oxygen Delivery Method 08/26/23 17:45 08/26/23 18:00 08/26/23 18:00 Temperature Pulse Rate 74 Respiratory Rate 21 Blood Pressure 172/80 141/65 O2 Sat by Pulse Oximetry 96 Oxygen Delivery Method 08/26/23 18:15 08/26/23 19:00 08/26/23 18:30 Temperature Pulse Rate 69 67 Respiratory Rate 15 15 Blood Pressure O2 Sat by Pulse Oximetry 92 L 93 L Oxygen Delivery Method Room Air 08/26/23 18:45 08/26/23 19:00 08/26/23 19:00 Temperature Pulse Rate 68 70 Respiratory Rate 17 16 Blood Pressure 134/65 O2 Sat by Pulse Oximetry 93 L 96 Oxygen Delivery Method 08/26/23 19:15 08/26/23 19:43 08/26/23 21:46 Temperature Pulse Rate 77 Respiratory Rate 19 24 19 Blood Pressure O2 Sat by Pulse Oximetry 97 Oxygen Delivery Method 08/26/23 23:55 08/27/23 01:58 08/26/23 19:30 Temperature Pulse Rate 71 Respiratory Rate 19 16 19 Blood Pressure O2 Sat by Pulse Oximetry 99 Oxygen Delivery Method 08/26/23 19:45 08/26/23 20:00 08/26/23 20:00 Temperature 97.8 F Pulse Rate 73 73 Respiratory Rate 19 14 Blood Pressure 176/70 O2 Sat by Pulse Oximetry 99 96 Oxygen Delivery Method 08/26/23 20:15 08/26/23 20:13 08/26/23 20:30 Temperature Pulse Rate 70 67 Respiratory Rate 21 17 23 Blood Pressure O2 Sat by Pulse Oximetry 96 96 Oxygen Delivery Method 08/26/23 20:45 08/26/23 21:00 08/26/23 21:00 Temperature Pulse Rate 67 68 Respiratory Rate 16 16 Blood Pressure 139/64 O2 Sat by Pulse Oximetry 95 94 L Oxygen Delivery Method 08/26/23 21:15 08/26/23 21:30 08/26/23 21:45 Temperature Pulse Rate 68 72 75 Respiratory Rate 18 27 H 25 H Blood Pressure O2 Sat by Pulse Oximetry 94 L 98 98 Oxygen Delivery Method 08/26/23 22:00 08/26/23 22:00 08/26/23 22:15 Temperature Pulse Rate 70 69 Respiratory Rate 26 H 25 H Blood Pressure 158/72 O2 Sat by Pulse Oximetry 95 93 L Oxygen Delivery Method 08/26/23 22:30 08/26/23 22:45 06/21/24 23:00 Temperature Pulse Rate 68 73 67 Respiratory Rate 18 28 H 21 Blood Pressure O2 Sat by Pulse Oximetry 94 L 96 92 L Oxygen Delivery Method 08/26/23 23:00 08/26/23 22:16 08/26/23 23:15 Temperature Pulse Rate 74 Respiratory Rate 17 15 Blood Pressure 145/67 O2 Sat by Pulse Oximetry 97 Oxygen Delivery Method 08/26/23 23:30 08/26/23 23:45 08/27/23 00:00 Temperature 98.7 F Pulse Rate 73 73 Respiratory Rate 28 H 17 Blood Pressure 177/72 O2 Sat by Pulse Oximetry 97 98 Oxygen Delivery Method 08/27/23 00:00 08/27/23 00:00 08/27/23 00:15 Temperature Pulse Rate 71 67 Respiratory Rate 18 16 Blood Pressure 177/72 O2 Sat by Pulse Oximetry 96 95 Oxygen Delivery Method 08/27/23 00:30 08/27/23 00:45 08/27/23 01:00 Temperature Pulse Rate 68 66 67 Respiratory Rate 15 23 19 Blood Pressure O2 Sat by Pulse Oximetry 96 94 L 97 Oxygen Delivery Method 08/27/23 01:01 08/27/23 01:01 08/27/23 01:15 Temperature Pulse Rate 69 66 Respiratory Rate 14 16 Blood Pressure 153/67 O2 Sat by Pulse Oximetry 97 95 Oxygen Delivery Method 08/27/23 00:25 08/27/23 01:30 08/27/23 01:45 Temperature Pulse Rate 66 67 Respiratory Rate 18 15 17 Blood Pressure O2 Sat by Pulse Oximetry 96 95 Oxygen Delivery Method 08/27/23 02:00 08/27/23 02:01 08/27/23 02:01 Temperature Pulse Rate 81 77 Respiratory Rate 20 21 Blood Pressure 187/81 O2 Sat by Pulse Oximetry 98 98 Oxygen Delivery Method 08/27/23 02:15 08/27/23 02:30 08/27/23 02:45 Temperature Pulse Rate 67 66 66 Respiratory Rate 15 15 14 Blood Pressure O2 Sat by Pulse Oximetry 94 L 95 94 L Oxygen Delivery Method 08/27/23 03:00 08/27/23 03:00 08/27/23 02:28 Temperature Pulse Rate 66 Respiratory Rate 17 18 Blood Pressure 146/66 O2 Sat by Pulse Oximetry 93 L Oxygen Delivery Method 08/27/23 04:14 08/27/23 06:10 08/27/23 03:15 Temperature Pulse Rate 65 Respiratory Rate 17 24 15 Blood Pressure O2 Sat by Pulse Oximetry 93 L Oxygen Delivery Method 08/27/23 03:30 08/27/23 03:45 08/27/23 04:00 Temperature Pulse Rate 66 66 82 Respiratory Rate 15 15 24 Blood Pressure O2 Sat by Pulse Oximetry 93 L 93 L 98 Oxygen Delivery Method 08/27/23 04:01 08/27/23 04:01 08/27/23 04:05 Temperature 98.6 F Pulse Rate 80 Respiratory Rate 24 Blood Pressure 205/88 179/81 O2 Sat by Pulse Oximetry 97 Oxygen Delivery Method 08/27/23 04:05 08/27/23 04:15 08/27/23 04:44 Temperature Pulse Rate 76 80 Respiratory Rate 22 23 16 Blood Pressure O2 Sat by Pulse Oximetry 98 98 Oxygen Delivery Method 08/27/23 04:30 08/27/23 04:45 08/27/23 05:00 Temperature Pulse Rate 71 71 69 Respiratory Rate 19 13 25 H Blood Pressure O2 Sat by Pulse Oximetry 93 L 95 94 L Oxygen Delivery Method 08/27/23 05:00 08/27/23 05:15 08/27/23 05:30 Temperature Pulse Rate 74 73 Respiratory Rate 18 16 Blood Pressure 156/70 O2 Sat by Pulse Oximetry 95 97 Oxygen Delivery Method 08/27/23 05:45 08/27/23 06:00 08/27/23 06:01 Temperature Pulse Rate 73 77 Respiratory Rate 18 14 Blood Pressure 186/82 O2 Sat by Pulse Oximetry 97 98 Oxygen Delivery Method 08/27/23 06:01 08/27/23 07:00 08/27/23 07:01 Temperature Pulse Rate 79 69 Respiratory Rate 17 14 Blood Pressure O2 Sat by Pulse Oximetry 98 94 L Oxygen Delivery Method Room Air 08/27/23 07:15 08/27/23 07:30 08/27/23 07:45 Temperature Pulse Rate 86 80 79 Respiratory Rate 34 H 28 H 21 Blood Pressure O2 Sat by Pulse Oximetry 95 98 94 L Oxygen Delivery Method 08/27/23 08:00 08/27/23 08:00 08/27/23 08:15 Temperature Pulse Rate 79 87 Respiratory Rate 26 H 24 Blood Pressure 166/80 O2 Sat by Pulse Oximetry 95 96 Oxygen Delivery Method 08/27/23 08:30 08/27/23 08:45 08/27/23 09:00 Temperature Pulse Rate 82 85 Respiratory Rate 34 H 22 Blood Pressure 178/81 O2 Sat by Pulse Oximetry 97 97 Oxygen Delivery Method 08/27/23 09:00 08/27/23 08:00 Temperature 98.0 F Pulse Rate 80 79 Respiratory Rate 24 24 Blood Pressure 166/80 O2 Sat by Pulse Oximetry 97 95 Oxygen Delivery Method Labs: Laboratory Last Values WBC 2.8 X10^3/uL (3.6-10.0) L 08/26/23 04:50 RBC 3.73 X10^6/uL (4.7-6.0) L 08/26/23 04:50 Hgb 10.6 g/dL (13.5-18.0) L 08/26/23 04:50 Hct 33.0 % (42.0-54.0) L 08/26/23 04:50 MCV 88.5 fL (80.0-100.0) 08/26/23 04:50 MCH 28.4 pg (27.0-34.0) 08/26/23 04:50 MCHC 32.1 g/dL (33.0-35.0) L 08/26/23 04:50 RDW 15.5 % (11.6-16.5) 08/26/23 04:50 Plt Count 80 X10^3/uL (150.0-450.0) L 08/26/23 04:50 MPV 7.7 fL (7.4-11.0) 08/26/23 04:50 Neut % (Auto) 71.3 % (42.0-75.0) 08/26/23 04:50 Lymph % (Auto) 19.5 % (21.0-51.0) L 08/26/23 04:50 [place] % (Auto) 6.8 % (0.0-13.0) 08/26/23 04:50 Eos % (Auto) 1.8 % (0.9-2.9) 08/26/23 04:50 Baso % (Auto) 0.6 % (0.2-1.0) 08/26/23 04:50 Neut # (Auto) 2.0 x10^3/uL (2.2-4.8) L 08/26/23 04:50 Lymph # (Auto) 0.5 X10^3/uL (1.3-2.9) L 08/26/23 04:50 [place] # (Auto) 0.2 x10^3/uL (0.3-0.8) L 08/26/23 04:50 Eos # (Auto) 0.1 x10^3/uL (0.0-0.2) 08/26/23 04:50 Baso # (Auto) 0.0 X10^3/uL (0.0-0.1) 08/26/23 04:50 Absolute Nucleated RBC 0.1 /100WBC 08/26/23 04:50 Sodium 140 mmol/L (136-145) 08/26/23 04:50 Corrected Sodium TNP 08/26/23 04:50 Potassium 3.5 mmol/L (3.5-5.1) 08/26/23 04:50 Chloride 106 mmol/L (98-107) 08/26/23 04:50 Carbon Dioxide 24.5 mmol/L (21-32) 08/26/23 04:50 BUN 8 mg/dL (7-18) 08/26/23 04:50 Creatinine 0.65 mg/dL (0.70-1.30) L 08/26/23 04:50 Est GFR (MDRD) Af Amer > 60 (>60) 08/26/23 04:50 Est GFR (MDRD) Non-Af > 60 (>60) 08/26/23 04:50 Glucose 100 mg/dL (65-99) H 08/26/23 04:50 POC Glucose (mg/dL) 142 mg/dL (65-99) H 08/27/23 05:15 Calcium 8.7 mg/dL (8.5-10.1) 08/26/23 04:50 Corrected Calcium 9.3 mg/dL (8.5-10.1) 08/26/23 04:50 Total Bilirubin 0.40 mg/dL (0.2-1.0) 08/26/23 04:50 AST 21 Units/L (15-37) 08/26/23 04:50 ALT 15 Units/L (12-78) 08/26/23 04:50 Alkaline Phosphatase 67 Units/L (46-116) 08/26/23 04:50 Total Protein 7.0 g/dL (6.4-8.2) 08/26/23 04:50 Albumin 3.2 g/dL (3.4-5.0) L 08/26/23 04:50 Globulin 3.8 g/dL (2.5-4.5) 08/26/23 04:50 Albumin/Globulin Ratio 0.8 Ratio (1.1-2.1) L 08/26/23 04:50 Reason For Visit: CRITICAL ISHEMIA TO RLE Discharge Date Discharge Date: 08/27/23 Discharge Diagnosis All Active Problems (Updated 08/10/23 @ 12:02 by LOLA CHURCH) Atherosclerosis of [place] arteries of extremities with rest pain, right leg (Acute) Atherosclerosis of [place] arteries of extremities with rest pain, left leg (Acute) Carotid stenosis, bilateral (Acute) Cirrhosis (Acute) Hyperlipidemia (Acute) Gastro-esophageal reflux disease without esophagitis (Acute) History of stroke (Acute) Chronic ischemic heart disease, unspecified (Acute) Essential (primary) hypertension (Acute) Plan of Treatment: Continue with present treatment and follow up plan. Pt is to keep follow up appointment as instructed and take medications as ordered. Discharge Medications Discharge Medications: No Known Allergies Allergy (Verified 07/11/23 18:37) home medications to include Plavix and Pletal Percocet 5m, 1 po q 6 hr PRN pain Discharge Disposition Assessment: see hospital course Discharge Plan Discharge Plan Hospital Course: This is a 67 year old male who has had significant peripheral vascular disease of both legs requiring bilateral iliac artery stenting and stenting of both superficial femoral arteries. Most recently he had endarterectomy and patch angioplasty of the right common femoral artery with stenting of the right supe rficial from artery. Post procedure he has complained of pain of the right leg and ultrasound was consistent with occlusion of the right superficial femoral artery. He was admitted and CT angiogram obtained showing occlusion just distal to the takeoff of the right superficial femoral artery. He required approach via the right posterior tibial artery and underwent Angiojet thrombectomy of thrombosis of the right superficial femoral artery and stents and additional stent placed in the proximal right superficial femoral artery with good resolution and flow into the foot with 3 vessel runoff. He has owen done well and will be discharged at this time on his usual medications to inclue Plavix and Pletal and he will be given prescription for Percocet , 5 milligram tablets, 1 every 6 hours PRN pain. he will follow up with me in 1 week. Patient Disposition: 01 HOME, SELF-CARE Condition: Stable Health Concerns: Post Hospitalization: new medications and changes needed to prevent readmission or further decline. Pt educated and given instructions on all concerns. Care Plan Goals: resume walking Plan of Treatment: Continue with present treatment and follow up plan. Pt is to keep follow up appointment as instructed and take medications as ordered. Assessment: see hospital course Prescription drug monitoring program results: PDMP reviewed with concerns identified Prescriptions: Continued sotalol 80 mg tablet 80 mg PO BID tamsulosin 0.4 mg capsule 0.4 mg PO QDAY metoprolol succinate 50 mg tablet extended release 24 hr 50 mg PO QDAY amlodipine-benazepril 5-10 mg Capsule 1 cap PO DAILY folic acid 1 mg Tablet 1 mg PO QDAY omeprazole 40 mg Capsule,Delayed Release(Dr/Ec) 40 mg PO DAILY rosuvastatin 20 mg Tablet 20 mg PO QDAY Jardiance 25 mg Tablet 25 mg PO QAM solifenacin [Vesicare] 10 mg Tablet 10 mg PO QDAY cilostazol 100 mg tablet 100 mg PO BID clopidogrel 75 mg tablet 75 mg PO QDAY hydrocodone-acetaminophen 10-325 mg tablet 1 tab PO Q8H PRN (Reason: pain) Ozempic 0.25 mg or 0.5 mg (2 mg/3 mL) pen injector 0.5 mg SUBCUT QWEEK oxycodone-acetaminophen [Percocet] 5-325 mg tablet 1 tab PO Q6H MDD 4 PRNQty: 30 0RF Follow ups/Referrals Follow ups/Referrals: STARR NERI [Primary Care Provider] - 1 WEEK Instructions Instructions: Endovascular Therapy for Peripheral Vascular Disease, Care After Stand Alone Forms: Excuse From Work or School, Post Hospital Follow Up Care
--- NOTE | 2023-08-28 01:06 | DR.OPNOTE ---
OP NOTE Pre-Op Diagnosis: critical ischemia right leg Post-Op Diagnosis: same Procedure Date Date Of Procedure: 08/26/23 Procedure: PROCEDURE : ANGIOJET THROMBECTOMY RIGHT SUPERFICIAL FEMORAL ARTERY , STENTING RIGHT PROXIMAL SUPERFICIAL FEMORAL ARTERY , ARTERIOGRAM RIGHT LEG NARRATIVE : The patient was taken to the operative suite and placed in the supine position. The entire right leg prepped and draped in sterile fashion. The patient was given intravenous sedation supervised by myself. time out for the procedure obtained. Ultrasound used to identify the right posterior tibial artery at the ankle and the skin overlying it infiltrated with 0.5% [place] . Ultrasound used to identify and guide puncture of the right posterior tibial artery and a 0.012 inch guide wire placed. Incision made over the guide wire with a number 11 knife blade and a 5 Fr slick sheath placed over the wire into the artery. Arteriogram carried out confirming that we were indeed in the posterior tibial artery . The patient appeared to have 3 vessel runoff when arteriogram was carried out. [place] catheter and 0.035 inch wire placed and there was evidence of obstruction of the popliteal artery proximally and the entire right superficial femoral artery with stents were occluded. [place] catheter and wire taken all the way into the right iliac artery and repeat arteriogram showed the occlusion just beyond the takeoff of the superficial femoral artery. Over the wire we placed the Angiojet thrombectomy catheter performed peripheral based thrombectomy of the entire right superficial femoral artery. Once this was done, then we placed a 7 mm x80 mm Fa[place] drug-eluting stent across the proximal [place] right superficial femoral artery just beyond its takeoff extending down to the previously placed stent .All this ballooned with a 7 mm balloon. Post proceure arteriogram showed excellent flow through the entire superficial artery with 3 vessel runoff. 5000 units IV heparin been given at the beginning of the case. Patient given 30 milligrams of Protamine at the end of the case. The vacular sheath removed from the posterior tibial artery and a tibial band used to control the bleeding from this puncture site. Patient taken back to the ICU in good condition. Type of Anesthesia: Local (0.55 Marcaine ) Anesthesia Comment: plus MAC Findings: complete occlusion of the right superficial femoral artery with reconstitution of the right popliteal artery with three vessel runoff. Total Amount of Fluid Infused:: 500cc Urine output: 300cc EBL: 50 cc Hardware: Faustina 7mmx 80 mm drug eluting stent Complications:: none Needle/Sponge Count:: correct Disposition/Condition: Pt. tolerated procedure without difficulty. Taken back to the CCU in stable condition.
== END 2023-08-27 10:00 | disposition home or self-care (01) | DRG 272 ==
LOC: ICU 14:57
PROVIDERS: ADMIT Surgery; ATTEND Surgery
PROC: ANGIOGR (2023-08-26 12:15)